=== PATIENT | male | born 2000 | race Hispanic/Latino ===

== ENCOUNTER 2020-05-12 09:45 | Emergency (ER) | payer OTHER ==
[~2020-05-12] VITALS: Ht 175.3 cm; Wt 78.4 kg
[2020-05-12] MEDS ORDERED: KETOROLAC TROMETHAMINE 10 MG TAB PO ONE (11:15)
[2020-05-12 11:36] LABS: BASO % 0.3 % (0.0-1.0); EOS # 0.2 10^3/uL (0.0-0.5); EOS % 2.2 % (0.0-3.0); HEMATOCRIT 46.1 % (42.0-52.0); HEMOGLOBIN 15.7 g/dl (13.5-17.5); LYMPH # 1.7 10^3/uL (1.5-5.0); LYMPH % 22.7 % (24.0-44.0); MEAN CORPUSCULAR HEMOGLOBIN 28.2 pg (27.0-33.0); MEAN CORPUSCULAR HGB CONC 34.1 g/dl (32.0-36.5); MEAN CORPUSCULAR VOLUME 82.9 fl (80.0-96.0); MONO # 0.7 10^3/uL (0.0-0.8); MONO % 8.5 % (0.0-5.0); NEUTROPHILS # 5.1 10^3/uL (1.5-8.5); PLATELET COUNT, AUTOMATED 209 10^3/uL (150-450); RED BLOOD COUNT 5.56 10^6/uL (4.30-6.10); WHITE BLOOD COUNT 7.7 10^3/uL (4.0-10.0)
[2020-05-12 12:05] LABS: ALBUMIN 4.8 GM/DL (3.2-5.2); ALT/SGPT 54 U/L (12-78); BILIRUBIN,DIRECT 0.3 MG/DL (0.0-0.2); BLOOD UREA NITROGEN 16 MG/DL (7-18); CALCIUM LEVEL 9.5 MG/DL (8.5-10.1); CARBON DIOXIDE LEVEL 34 MEQ/L (21-32); CHLORIDE LEVEL 106 MEQ/L (98-107); CREATININE FOR GFR 0.93 MG/DL (0.70-1.30); GLUCOSE, FASTING 80 MG/DL (70-100); LIPASE 108 U/L (73-393); POTASSIUM SERUM 4.2 MEQ/L (3.5-5.1); SODIUM LEVEL 140 MEQ/L (136-145); TOTAL PROTEIN 8.2 GM/DL (6.4-8.2)
[2020-05-12] MEDS ORDERED: NAPR-837 PO (12:42)
[2020-05-12 12:51] VITALS: BP 113/76
== END 2020-05-12 12:56 | disposition home or self-care (01) ==
LOC: M ED 09:45
DX: S39.011A Strain of muscle, fascia and tendon of abdomen, initial encounter (principal); X58.XXXA Exposure to other specified factors, initial encounter; Y92.9 Unspecified place or not applicable; Y93.9 Activity, unspecified; Y99.9 Unspecified external cause status

== ENCOUNTER 2021-07-06 07:54 | Day surgery (SDC) | payer OTHER ==
[~2021-07-06] VITALS: Ht 175.3 cm; Wt 73.2 kg
[~2021-07-06 07:54] MED LIST: NAPR-837 PO; NS 1,000 ML IV ONE
--- OUTSIDE RECORDS SUMMARY | 2021-07-06 07:58 | CCD | Continuity of Care Document ---
Author Author Jean Claude SNOW M.D Organization Unknown Address [address] [place] [id number] Phone [phone] Care Team Providers Care Product Designer Name Role Phone [facility]ile F[facility]ana [facility] Problems Active Problems Provider Date Gastroesophageal reflux disease Brant Snow M.D. Ons et: 05/17/2021 Hemorrhage of rectum and anus Brant Snow M.D. Onset : 12/07/2020 Social History Type Date Description Comments Sex Unknown ETOH Use Denies alcohol use Tobacco Use Start: Unknown Patient has never smoked Allergies and adverse reactions Description No Known Drug Allergies Medications Active Medications SIG Qnty Indications Ordering Provide r Date No Active Medications Unknown History Medications No Active Medications Brant hernandez M.D. 12/07/2020 - 12/07/2020 Suprep Bowel Prep Kit 17.5-3.13-1.6GM/177ML Solution use as directed 354ml Brant Snow M.D. 12/07/2020 - 05/16/2021 Immunizations Description No Information Available Vital Signs Date Vital Result Comment 05/17/2021 11:13am Height 69 inches 5'9" Weight 166.00 lb BP Systolic 130 mmHg BP Diastolic 79 mmHg Heart Rate 89 /min BMI (Body Mass Index) 24.5 kg/m2 Weight 75.298 kg Body Temperature 97.5 F 12/07/2020 1:02pm Height 69 inches 5'9" Weight 171.00 lb BP Systolic 129 mmHg BP Diastolic 71 mmHg Heart Rate 77 /min BMI (Body Mass Index) 25.2 kg/m2 Weight 77.566 kg Body Temperature 97.2 F Results Description No Information Available Procedures Date Code Description Status 12/07/2020 05538 Office/Outpatient New Low MDM 30 -44 Minutes Completed Medical Devices Description No Information Available Encounters Type Date Location Provider Dx Diagnosis Office Visit 12/07/2020 1:15p Main Office Brant Snow M.D. K 62.5 Hemorrhage of anus and rectum Assessments Date Code Description Provider 05/17/2021 K21.9 Gastroesophageal reflux disease Brant Snow M.D. 12/07/2020 K62.5 Hemorrhage of rectum and anus Ge pb Snow M.D. Plan of Treatment Future Appointment(s):* 07/06/2021 8:45 am - Brant Snow M.D. at Main Office 05/17/2021 - Brant Snow M.D.* K21.9 Gastroesophageal reflux disease* Comments:* 21 yo ADS who was referred for evaluation of rectal bleeding. Pt is s/p appendectomy October 25. No c/o abdominal pain, weight loss, change in bowel habits, or rectal bleeding. No family h/o colon cancer. No h/o chest pain, or sob. Pt never had the colonoscopy. He is here now for evaluation of heartburn. His symptoms are all improved. Plan:1. Egd + bx.2. informed consent. Functional Status Description No Information Available Mental Status Description No Information Available Referrals Refer to Reason for Referral Status Appt Date Brant Snow M.D. Created [address] [place] [address] [phone] Brant Snow M.D. Scheduled [address] [place] [address] [phone]
--- OUTSIDE RECORDS SUMMARY | 2021-07-06 07:58 | CCD | Continuity of Care Document ---
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 K 21.9 Gastro-esophageal reflux disease without esophagitis Office Visit 12/07/2020 1:15p Main Office Brant [...] Status Appt Date Brant Snow M.D. Created [address] [place] [id number] [phone] Brant Snow M.D. Scheduled [address] [place] [id number] [phone]
--- OUTSIDE RECORDS SUMMARY | 2021-07-06 07:59 | CCD ---
Author Author [facility] Organization [facility] Address Unknown Phone Unavailable Care Team Providers Care Towel Sorter Name Role Phone [facility] Unavailable Unavailable Glendy Snow MD Unavailable Unavailable Glendy Snow MD Unavailable Unavailable Glendy Snow MD Unavailable Unavailable Glendy Snow MD Unavailable Unavailable Glendy Snow MD Unavailable Unavailable Glendy Snow MD Unavailable Unavailable Glendy Snow MD Unavailable Unavailable Glendy Snow MD Unavailable Unavailable Glendy Snow MD Unavailable Unavailable Glendy Snow MD Unavailable Unavailable Glendy Snow MD Unavailable Unavailable Glendy Snow MD Unavailable Unavailable Glendy Snow MD Unavailable Unavailable Glendy Snow MD Unavailable Unavailable Glendy Snow MD Unavailable Unavailable Glendy Snow MD Unavailable Unavailable Glendy Snow MD Unavailable Unavailable Glendy Snow MD Unavailable Unavailable Glendy Snow MD Unavailable Unavailable Glendy Snow MD Unavailable Unavailable Glendy Snow MD Unavailable Unavailable Glendy Snow MD Unavailable Unavailable Glendy Snow MD Unavailable Unavailable Glendy Snow MD Unavailable Unavailable Glendy Snow MD Unavailable Unavailable Glendy Snow MD Unavailable Unavailable Glendy Snow MD Unavailable Unavailable Glendy Snow MD Unavailable Unavailable Glendy Snow MD Unavailable Unavailable Glendy Snow MD Unavailable Unavailable Glendy Snow MD Unavailable Unavailable Glendy Snow MD Unavailable Unavailable Glendy Snow MD Unavailable Unavailable Gwendolyn, S Brant VICENTE Unavailable Unavailable Gwendolyn, S Brant MD Unavailable Unavailable Gwendolyn, S Brant MD Unavailable Unavailable Gwendolyn, S Brant MD Unavailable Unavailable Gwendolyn, S Brant MD Unavailable Unavailable Gwendolyn, S Brant VICENTE Unavailable Unavailable Gwendolyn, S Brant VICENTE Unavailable Unavailable Gwendolyn, S Brant VICENTE Unavailable Unavailable Gwendolyn, S Brant MD Unavailable Unavailable Gwendolyn, S Brant MD Unavailable Unavailable Gwendolyn, S Brant VICENTE Unavailable Unavailable Gwendolyn, S Brant MD Unavailable Unavailable Gwendolyn, S Brant VICENTE Unavailable Unavailable Gwendolyn, S Brant VICENTE Unavailable Unavailable Gwendolyn, S Brant VICENTE Unavailable Unavailable Gwendolyn, S Brant MD Unavailable Unavailable Gwendolyn, S Brant MD Unavailable Unavailable Paresh Lanza MD Unavailable Unavailable Paresh Lanza MD Unavailable Unavailable Paresh Lanza MD Unavailable Unavailable Paresh Lanza MD Unavailable Unavailable Paresh Lanza MD Unavailable Unavailable Paresh Lanza MD Unavailable Unavailable UNKNOWN, [facility]IN[facility] WAYLON Unavailable Unavailable TURRIN, REHANA Unavailable Unavailable TURRIN, REHANA Unavailable Unavailable TURRIN, REHANA Unavailable Unavailable TURRIN, REHANA Unavailable Unavailable Shravan Araiza MD Unavailable Unavailable Shravan Araiza MD Unavailable Unavailable Shravan Araiza MD Unavailable Unavailable Shravan Araiza MD Unavailable Unavailable Shravan Araiza MD Unavailable Unavailable Shravan Araiza MD Unavailable Unavailable Shravan Araiza MD Unavailable Unavailable Shravan Araiza MD Unavailable Unavailable Shravan Araiza MD Unavailable Unavailable Shravan Araiza MD Unavailable Unavailable Shravan Araiza MD Unavailable Unavailable Shravan Araiza MD Unavailable Unavailable Shravan Araiza MD Unavailable Unavailable Shravan Araiza MD Unavailable Unavailable Shravan Araiza MD Unavailable Unavailable Shravan Araiza MD Unavailable Unavailable Shravan Araiza MD Unavailable Unavailable Shravan Araiza MD Unavailable Unavailable Shravan Araiza MD Unavailable Unavailable Shravan Araiza MD Unavailable Unavailable Shravan Araiza MD Unavailable Unavailable Shravan Araiza MD Unavailable Unavailable Shravan Araiza MD Unavailable Unavailable Shravan Araiza MD Unavailable Unavailable Shravan Araiza MD Unavailable Unavailable Shravan Araiza MD Unavailable Unavailable Shravan Araiza MD Unavailable Unavailable Shravan Araiza MD Unavailable Unavailable Shravan Araiza MD Unavailable Unavailable Shravan Araiza MD Unavailable Unavailable Shravan Araiza MD Unavailable Unavailable Shravan Araiza MD Unavailable Unavailable Shravan Araiza MD Unavailable Unavailable Shravan Araiza MD Unavailable Unavailable Jose G, F Tank MD Unavailable Unavailable Shravan Araiza MD Unavailable Unavailable Shravan Araiza MD Unavailable Unavailable Shravan Araiza MD Unavailable Unavailable Shravan Araiza MD Unavailable Unavailable Shravan Araiza MD Unavailable Unavailable Shravan Araiza MD Unavailable Unavailable Shravan Araiza MD Unavailable Unavailable Monik BOSCH MD Unavailable Unavailable Monik BOSCH MD Unavailable Unavailable Monik BOSCH MD Unavailable Unavailable Monik BOSCH MD Unavailable Unavailable Monik BSOCH MD Unavailable Unavailable Monik BOSCH MD Unavailable Unavailable Monik BOSCH MD Unavailable Unavailable Monik BOSCH MD Unavailable Unavailable Monik BOSCH MD Unavailable Unavailable Clemente Vallejo MD Unavailable Unavailable Clemente Vallejo MD Unavailable Unavailable Clemente Vallejo MD Unavailable Unavailable Clemente Vallejo MD Unavailable Unavailable Clemente Vallejo MD Unavailable Unavailable Clemente Vallejo MD Unavailable Unavailable Clemente Vallejo MD Unavailable Unavailable Clemente Vallejo MD Unavailable Unavailable Clemente Vallejo MD Unavailable Unavailable Clemente Vallejo MD Unavailable Unavailable Clemente Vallejo MD Unavailable Unavailable Clemente Vallejo MD Unavailable Unavailable Clemente Vallejo MD Unavailable Unavailable Clemente Vallejo MD Unavailable Unavailable Clemente Vallejo MD Unavailable Unavailable Clemente Vallejo MD Unavailable Unavailable Clemente Vallejo MD Unavailable Unavailable Clemente Vallejo MD Unavailable Unavailable Clemente Vallejo MD Unavailable Unavailable Clemente Vallejo MD Unavailable Unavailable Clemente Vallejo MD Unavailable Unavailable Clemente Vallejo MD Unavailable Unavailable Clemente Vallejo MD Unavailable Unavailable Clemente Vallejo MD Unavailable Unavailable Clemente Vallejo MD Unavailable Unavailable Clemente Vallejo MD Unavailable Unavailable Clemente Vallejo MD Unavailable Unavailable Clemente Vallejo MD Unavailable Unavailable Clemente Vallejo MD Unavailable Unavailable Clemente Vallejo MD Unavailable Unavailable Clemente Vallejo MD Unavailable Unavailable Clemente Vallejo MD Unavailable Unavailable Clemente Vallejo MD Unavailable Unavailable Clemente Vallejo MD Unavailable Unavailable Clemente Vallejo MD Unavailable Unavailable Clemente Vallejo MD Unavailable Unavailable Clemente Vallejo MD Unavailable Unavailable Clemente Vallejo MD Unavailable Unavailable Clemente Vallejo MD Unavailable Unavailable Clemente Vallejo MD Unavailable Unavailable Clemente Vallejo MD Unavailable Unavailable Clemente Vallejo MD Unavailable Unavailable Clemente Vallejo MD Unavailable Unavailable Clemente Vallejo MD Unavailable Unavailable Clemente Vallejo MD Unavailable Unavailable Clemente Vallejo MD Unavailable Unavailable Clemente Vallejo MD Unavailable Unavailable Clemente Vallejo MD Unavailable Unavailable Clemente Vallejo MD Unavailable Unavailable Clemente Vallejo MD Unavailable Unavailable Clemente Vallejo MD Unavailable Unavailable Clemente Vallejo MD Unavailable Unavailable Clemente Vallejo MD Unavailable Unavailable Clemente Vallejo MD Unavailable Unavailable Clemente Vallejo MD Unavailable Unavailable Clemente Vallejo MD Unavailable Unavailable Clemente Vallejo MD Unavailable Unavailable Clemente Vallejo MD Unavailable Unavailable Clemente Vallejo MD Unavailable Unavailable Clemente Vallejo MD Unavailable Unavailable Clemente Vallejo MD Unavailable Unavailable Clemente Vallejo MD Unavailable Unavailable Clemente Vallejo MD Unavailable Unavailable Clemente Vallejo MD Unavailable Unavailable Clemente Vallejo MD Unavailable Unavailable Clemente Vallejo MD Unavailable Unavailable Clemente Vallejo MD Unavailable Unavailable Clemente Vallejo MD Unavailable Unavailable Clemente Vallejo MD Unavailable Unavailable Clemente Vallejo MD Unavailable Unavailable Clemente Vallejo MD Unavailable Unavailable Clemente Vallejo MD Unavailable Unavailable Clemente Vallejo MD Unavailable Unavailable Clemente Vallejo MD Unavailable Unavailable Clemente Vallejo MD Unavailable Unavailable Clemente Vallejo MD Unavailable Unavailable Genevieve, O Samah MD Unavailable Unavailable Genevieve, O Samah MD Unavailable Unavailable Genevieve, O Samah MD Unavailable Unavailable CHANLIECCO, C DEBBY MD Unavailable Unavailable CHANLIECCO, C DEBBY MD Unavailable Unavailable CHANLIECCO, C DEBBY MD Unavailable Unavailable CHANLIECCO, C DEBBY MD Unavailable Unavailable CHANLIECCO, C DEBBY MD Unavailable Unavailable CHANLIECCO, C DEBBY MD Unavailable Unavailable CHANLIECCO, C DEBBY MD Unavailable Unavailable CHANLIECCO, C DEBBY MD Unavailable Unavailable CHANLIECCO, C DEBBY MD Unavailable Unavailable CHANLIECCO, C DEBBY MD Unavailable Unavailable CHANLIECCO, C DEBBY MD Unavailable Unavailable Re-disclosure Warning The records that you are about to access may contain information from federally-assisted alcohol or drug abuse programs. If such information is present, then the following federally mandated warning applies: This information has been disclosed to you from records protected by federal confidentiality rules (42 CFR part 2). The federal rules prohibit you from making any further disclosure of this information unless further disclosure is expressly permitted by the written consent of the person to whom it pertains or as otherwise permitted by 42 CFR part 2. A general authorization for the release of medical or other information is NOT sufficient for this purpose. The Federal rules restrict any use of the information to criminally investigate or prosecute any alcohol or drug abuse patient.The records that you are about to access may contain highly sensitive health information, the redisclosure of which is protected by Article 27-F of the [facility] Public Health law. If you continue you may have access to information: Regarding HIV / AIDS; Provided by facilities licensed or operated by the [facility] Office of Mental Health; or Provided by the [facility] Office for People With Developmental Disabilities. If such information is present, then the following [facility] mandated warning applies: This information has been disclosed to you from confidential records which are protected by state law. State law prohibits you from making any further disclosure of this information without the specific written consent of the person to whom it pertains, or as otherwise permitted by law. Any unauthorized further disclosure in violation of state law may result in a fine or half-way sentence or both. A general authorization for the release of medical or other information is NOT sufficient authorization for further disc losure. Allergies and Adverse Reactions Type Description Substance Reaction Status Data Source(s ) No Known Allergies No Known Allergies [facility] Encounters Encounter Providers Location Date Indications Data Source(s ) Outpatient Attender: Brant Snow MD Main Office 05/17/2021 11:00:00 AM EDT [facility] ([facility]) Emergency Attender: REHANA ARCINIEGAConsultant: WAYLON UNKNOW N 05/12/2021 01:39:00 AM EDT - 05/12/2021 03:11:00 AM EDT [facility] Patient discharged. Emergency Attender: Paresh Lanza MDConsultant: WAYLON UNKNOWN 05/06/2021 10:10:00 AM EDT - 05/06/2021 01:25:00 PM [facility]T [facility] Outpatient Attender: Hattie Vallejo MD Main office [facility] 12/30/2020 10:00:00 AM EDT [facility]) Outpatient Attender: Brant Snow MD Main Office 12/07/2020 01:15:00 PM EDT [facility] ([facility]) Emergency Attender: Paresh Lanza MD 12/03/2020 06:53:00 AM EDT - 12/03/2020 07:34:00 AM EDT [facility] Patient discharged. Outpatient Attender: Tank Araiza MD 2020 12:23:00 PM EDT - 11/18/2020 12:23:00 PM EDT [facility] Emergency Attender: DEBBY RAMOS MD 11/11/2020 01:32:00 PM EDT - 11/11/2020 03:24:00 PM EDT [facility] Patient discharged. Outpatient Attender: Tank Araiza MD 2020 01:17:00 PM EDT - 11/10/2020 01:17:00 PM EDT [facility] Emergency Attender: REHANA ARCINIEGA 2020 08:56:00 AM EST - 11/01/2020 11:23:00 AM [facility] Patient discharged. Outpatient Attender: Tank Araiza MDAtt chuck: REHANA ARCINIEGAReferrer: Tank Araiza MD 10/25/2020 11:18:00 AM EST - 10/26/2020 09:15:00 AM [facility] Patient discharged. Emergency Attender: DEBBY RAMOS MD 09/10/2020 02:11:00 PM [facility] 09/10/2020 02:49:00 PM [facility] Patient discharged. Outpatient Attender: [facility] 09/05/2020 12:1 5:00 AM [facility] Emergency Attender: NALDO BOSCH MD 09/04 11:39:00 PM [facility] 09/05/2020 03:37:00 AM [facility] Patient discharged. Immunizations Vaccine Date Status Description Data Source(s) COVID-19 VACCINE Keith 12/02/2020 12:00:00 AM EDT completed [employer] Vaccine Series Complete: YESThis Data wa s Submitted to [facility] Via [employer]. Medications Medication Brand Name Start Date Product Form Dose Route Admi nistrative Instructions Pharmacy Instructions Status Indications Reaction Description Data Source(s) No Active Medications 05/17/2021 12:00:00 AM EDT active [facility] ([facility]) Suprep Bowel Prep Kit Suprep Bowel Prep Kit 12/07/2020 12:00:00 AM EDT completed [facility]) No Active Medications 12/07/2020 12:00:00 AM EDT completed [facility] ([facility]) Docusate Sodium 100 MG Oral Capsule [Colace] Colace 12:00:00 AM EDT ORAL active [facility] ( [facility]) No Active Medications 11/10/2020 12:00:00 AM EDT completed [facility] ([facility]) Ibuprofen 800 MG Oral Tablet Ibuprofen 10/26/2020 12:00:00 AM EST ORAL completed [facility] ([facility]) Insurance Providers Payer name Policy type / Coverage type Policy ID Covered green party ID Covered green party's relationship to adair Policy Adair Plan Information [facility] [id number] SP [id number] [facility] - O/P [id number] 18 [id number] [facility] - PHYSICIAN [id number] 18 [id number] [facility] [place] [id number] 18 [id number] Problems, Conditions, and Diagnoses Code Display Name Description Problem Type Effective Dates Data Source(s) Y9289 Other specified places as the place of o ccurrence of the external cause Other specified places as the place of occurrence of the external cause Diagnosis 05/12/2021 01:39:[address] [facility] [id number] Overexertion from strenuous movement or load, initial encounter Overexertion from strenuous movement or load, initial encounter Diagnosis 05/12/2021 01:39:[address] [facility] [id number] Strain of muscle, fascia and tendon of l ower back, initial encounter Strain of muscle, fascia and tendon of lower back, initial encounter Diagnosis 05/12/2021 01:39:[address] [facility] M545 Low back pain Low back pain Diagnosis 05/12/2021 01:39:[address] [facility] Z8719 Personal history of other diseases of th e digestive system Personal history of other diseases of the digestive system Diagnosis 04/27 10:10:[address] [facility] R0602 Shortness of breath Shortness of breath Diagnosis 0 05/06/2021 10:10:[address] [facility] K2100 Gastro-esophageal reflux disease with es ophagitis, without bleeding Gastro-esophageal reflux disease with esophagitis, without bleeding Diagnosis 05/06/2021 10:10:[address] [facility] R1013 Epigastric pain Epigastric pain Diagnosis 05/06/2021 10:1 0:[address] [facility] R5383 Other fatigue Other fatigue Diagnosis 12/03/2020 06:53:[address] [facility] R05 Cough Cough Diagnosis 12/03/2020 06:53:00 AM ED [facility] M7910 Myalgia, unspecified site Myalgia, unspecified site Di agnosis 12/03/2020 06:53:[address] [facility] R519 Headache, unspecified Headache, unspecified Diagnosis 12/03/2020 06:53:[address] [facility] K600 Acute anal fissure Acute anal fissure Diagnosis 12:23:[address] [facility] R1032 Left lower quadrant pain Left lower quadrant pain Diag nosis 11/11/2020 01:32:00 PM EDT [facility] K625 Hemorrhage of anus and rectum Hemorrhage of anus and r ectum Diagnosis 11/11/2020 01:32:00 PM EDT [facility] Z4889 Encounter for other specified surgical a ftercare Encounter for other specified surgical aftercare Diagnosis 11/10/2020 01:17:00 PM EDT [facility] [id number] Other specified postprocedural states Ot her specified postprocedural states Diagnosis 11/01/2020 08:56:00 AM [facility] 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 Acquired absenc e of other organs Diagnosis 11/01/2020 08:56:00 AM [facility] K5900 Constipation, unspecified Constipation, unspecified Di agnosis 11/01/2020 08:56:00 AM [facility] K3530 Acute appendicitis with loca lized peritonitis, without perforation or gangrene Acute appendicitis with localized perito nitis, without perforation or gangrene Diagnosis 10/25/2020 11:18:00 AM [facility] 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, unspecified Right temporomandibular joint disorder, unspecified Diagnosis 09/10/19 02:11:00 PM [facility] K0889 Other specified disorders of teeth and s upporting structures Other specified disorders of teeth and supporting structures Diagnosis 09/10/2020 02:11:00 PM [facility] K26154 Invalid ICD10 Description Invalid ICD10 Description Di agnosis 09/04/2020 11:39:00 PM [facility] R509 Fever, unspecified Fever, unspecified Diagnosis 11:39:00 PM [facility] K649 Unspecified hemorrhoids Unspecified hemorrhoids Diagno sis 09/04/2020 11:39:00 PM [facility] [id number] Gastroesophageal reflux disease Gastroesophageal reflux disease Problem 05/17/2021 12:00:00 AM EDT [facility] [id number] Atypical facial pain Atypical facial pain Problem 12/30/2020 12:00:00 AM EDT [facility] ([facility] ) 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 Problem 12/30/2020 12:00:00 AM EDT [facility] ([facility] ) [id number] Hemorrhage of rectum and anus Hemorrhage of rectum and anus Problem 12/07/2020 12:00:00 AM EDT [facility] ([facility]) K37 Appendicitis Appendicitis Problem 11/10/2020 12:00:00 A M EDT [facility] ([facility]) Surgeries/Procedures Procedure Description Date Indications Data Source(s) OFFICE OUTPATIENT VISIT 15 MINUTES 05/17/2021 12:00:00 AM EDT [facility] ([facility]) MRI ORBIT FACE &/NECK W/O CONTRAST 01/29/2021 12:00:00 AM EDT [facility] ([facility] ) MRI ORBIT FACE &/NECK W/O CONTRAST 01/29/2021 12:00:00 AM EDT [facility] ([facility] ) OFFICE OUTPATIENT NEW 30 MINUTES 12/07/2020 12:00:00 A M EDT [facility] ([facility]) Results ID Date Data Source [id number] 07/01/2021 11:10:00 AM EDT [facility] Name Value Range Interpretation Code Description Data Maria Eugenia rce(s) Supporting Document(s) SARS coronavirus 2 RNA Not Detected [facility] This lab was ordered by [facility] and reported by [facility]. ID Date Data Source [id number] 05/20/2021 12:00:00 AM EDT [facility] Name Value Range Interpretation Code Description Data Maria Eugenia rce(s) Supporting Document(s) [facility] This lab was ordered by [facility] and reported by [facility]. ID Date Data Source [id number] 05/12/2021 01:32:00 PM EDT [facility] [address] [place] [address] PHONE: [phone] FAX: [phone] Name .................. : JOCELYNN Ruggiero Acct Number.................. : [id number] ROOM. ................. : TR-07 MR Number ................... : [id number] Stay type ............. : E/R Discharge Date......... ... : 05/12/21 Admit Date ......... : 05/12/21 Admit Phys .................... : DEMIAN KAVITHA Date of ....... : 2000 Family Phys ................... : UNKNOWN KURT Phone .................. : [phone] Age ................................ : 21 Film# .................. .:[id number] Sex ................................. : M Unsigned transcriptions are preliminary reports and do not represent a medical or legal document SPINE LS AP & LAT [id number] COMPLETE:05/12/21 02:56 DLA 51451 Reason(s): Lower Back Pain LUMBOSACRAL SPINE 2 VIEWS. INDICATION: Low back pain COMPARISON: None. FINDINGS: The vertebral bodies are normal height. No fracture or destru ctive bone lesion. No spondylolysis or spondylolisthesis. The disk spaces are well preserved. No significant degenerative changes. There is moderately increased stool throughout the colon. Correlate clinically for constipation. IMPRESSION: Lumbar spine is unremarkable. Electronically Reviewed and Signed By Joseph Tamayo MD , 05/12/21 13:32, JWGlendy Transcribe Initials: EARL, Transcribe Date: 05/12/21 08:48, Dictation Date: Copy for: EMERGENCY DEPT via [facility] Copy for: 710 MED REC DISCHARGED Page 1 of 1 Name Value Range Interpretation Code Description Data Maria Eugenia rce(s) Supporting Document(s) ID Date Data Source [id number] 05/12/2021 01:39:00 AM EDT [facility] 1 OrderSheet [facility] Emergency Department [address] [place] [address] Phone #: ext- [phone] 05/12/2021 01:37 Patient: DIANA CABEZAS Sex: M : 2000 Age: 21yWEIGHT:78.9 kg (S) HEIGHT:69 inches (S) BMI:25.7ALLERGIES: NKDACHIEF COMPLAINT: back pain, back injuryDIAGNOSIS: Lumbar sprainLAB ORDERSOrder Description Priority Entered Acknowledged InitialedDIAGNOSTIC STUDY ORDERSOrder Description Priority Entered Acknowledged InitialedSpine Lumbar AP STAT 02:46 05/12/2021 02:46 Jacob,And LAT Rehana Arciniega RBipinNBipin(Oxygen?(No)) M.D.; Reason for Study: Lower Back PainMEDICATION/IV/DRIP/FLUID ORDERSOrder Description Priority Entered Acknowledged InitialedToradol IM 30 mg 02:46 05/12/2021 02:58 JacobDemian Riccardo Stephanie R.N. M.D.;Tylenol 1 g PO X1 02:46 05/12/2021 02:58 Jacob,dose: 1000 mg Rehana Arciniega R.N.(NOW x1) M.D.;Lidocaine Patch 02:46 05/12/2021 02:58 Jacob,Topical (Patch 5 %) Rehana Arciniega.N.1 Patch (On for 12 M.D.;hours, off for 12hours.)GENERAL ORDERSOrder Description Priority Entered Acknowledged Initialed[Electronically signed by Yu Juares R.N. (03:11 05/12/2021)][Electronically signed by Rehana Arciniega M.D. (03:23 05/12/2021)][Electronically locked by Yu Juares R.N. (03:11 05/12/2021)] Name Value Range Interpretation Code Description Data Maria Eugenia rce(s) Supporting Document(s) ID Date Data Source [id number] 05/12/2021 01:39:00 AM EDT [facility] 1 Medication Reconciliation Report [facility] Emergency Department [address] [place] [address] Phone #: ext- [phone] 05/12/2021 01:37 Patient: DIANA CABEZAS Sex: M : 2000 Age: 21yWeight: 78.9 kgHeight/Length: 69 in.BMI: 25.7ALLERGIES: NKDAThe patient's Home Medications are listed below:CONTINUE TAKING THE FOLLOWING MEDICATIONS: Cyclobenzaprine HCl OralThe source(s) of the original Home Medication information:Not obtained.The following Medications were given to the patient in the Emergency Department:Toradol [IM] IM 30 mg, administered: 02:58 05/12/2021Tylenol [PO] PO 1000 mg, administered: 02:58 05/12/2021idocaine Patch Transdermal 1 patch, administered: 02:58 05/12/2021The following Medications were prescribed to the patient:ibuprofen 600 mg tablet Take 1 tablet four times a day as needed for pain for 7 days -- Dispense 28tablet. Refills: 0. Substitution permitted.Pharmacy - [facility] [id number] ; [place] [address]. .Lidoderm 5 % topical patch Apply 1 patch once a day for 7 days -- Take off after 12 hrs. Dispense 7patch. Refills: 0. Substitution permitted.Pharmacy - [facility] [id number] ; [place] [address]. . -- Rehana Arciniega M.D. Name Value Range Interpretation Code Description Data Maria Eugenia e(s) Supporting Document(s) ID Date Data Source [id number] 05/12/2021 01:39:00 AM EDT [facility] 1 Medication Administration Record [facility] Emergency Department [address] [place] [address] Phone #: ext- [phone] 05/12/2021 01:37 Patient: DIANA CABEZAS Sex: M : 2000 Age: 21yWeight: 78.9 kgHeight/Length: 69 inBMI: 25.7ALLERGIES: NKDA Date/Time Medication Administered Medication OrderedGiven TORADOL [IM] (KETOROLAC Toradol IM 30 mg02:58 05/12/2021 TROMETHAMINE)Lydia James, R.NBipin Dose: 30 mg IMGiven TYLENOL [PO] (APAP) Tylenol 1 g PO X1 dose: 1000 mg02:58 05/12/2021 Dose: 1000 mg Tablets PO (NOW x1)Lydia James R.NBipinGiven LIDOCAINE PATCH Lidocaine Patch Topical (Patch 502:58 05/12/2021 Dose: 1 patch Transdermal %) 1 Patch (On for 12 hours, offLofLydia oliveira R.NBipin for 12 hours.) Name Value Range Interpretation Code Description Data Maria Eugenia rce(s) Supporting Document(s) ID Date Data Source [id number] 05/12/2021 01:39:00 AM EDT [facility] 1 General Instructions [facility] Emergency Department [address] [place] [address] Phone #: ext- [phone] 05/12/2021 01:37 Patient: DIANA CABEZAS Sex: M : 2000 Age: 21yAcute lumbar strain.INSTRUCTIONSApply ice for 30 minutes four times a day for two days followed by moist heat 30 minutes four times a dayfor five days. Don't apply ice directly to skin, don't use while asleep and don't use high setting on heatingpad. Limit lifting until well. No strenuous activity until better. Return to work when released by doctor.(FOLLOW UP WITH ORTHOPEDICS ON [place] FOR MRI AND FURTHER TREATMENT NEEDED,LIKE PHYSICAL THERAPY).Warnings: GENERAL WARNINGS: Return or contact your physician immediately if your conditionworsens or changes unexpectedly, if not improving as expected, or if other problems arise.SPECIFICALLY, return if you develop weakness of the foot or leg, numbness, tingling, pain or incontinenceof feces (loss of bowel control) or urine (loss of bladder control).Your Current Medications: Your current home medications have been reviewed.CONTINUE TAKING THE FOLLOWING MEDICATIONS:Cyclobenzaprine HCl Oral.Prescription Medications:ibuprofen 600 mg tablet Take 1 tablet four times a day as needed for pain for 7 days -- Dispense 28tablet. Refills: 0. Substitution permitted.[facility] [phone] ; [place] [address]. .Lidoderm 5 % topical patch Apply 1 patch once a day for 7 days -- Take off after 12 hrs. Dispense 7patch. Refills: 0. Substitution permitted.[email or web address] [phone] ; [place] [address]. .Follow-up:Return to the emergency department as needed. Follow up with an orthopedic surgeon in three dayseven if well. Call for an appointment. Reason for referral: evaluation and treatment. Summary of careprovided to patient via paper.Understanding of the discharge instructions verbalized by patient. Expected course of injury, dischargeinstructions, activity level, diet, prescriptions x2, follow-up appointment and risks and benefits of treatmentreviewed with patient and understanding verbalized. Agrees to plan of care. 2 General Instructions [facility] Emergency Department [address] [place] [address] Phone #: ext- [phone] 05/12/2021 01:37 Patient: DIANA CABEZAS Sex: M : 2000 Age: 21y ADDITIONAL INFORMATIONBack Pain (Acute or Chronic)Back pain is one of the most common problems. The good news is that most people feel better in 1 to2 weeks, and most of the rest in 1 to 2 months. Most people can remain active.People who have pain describe it differently--not everyone is the same. The pain can be sharp, stabbing, shooting, aching, cramping or burning. Movement, standing, bending, lifting, sitting, or walking may worsen pain. It can be limited to one spot or area, or it can be more generalized. It can spread upwards, to the front, or go down your arms or legs (sciatica). 3 General Instructions [facility] Emergency Department [address] [place] [address] Phone #: ext- [phone] 05/12/2021 01:37 Patient: DIANA CABEZAS Sex: M : 2000 Age: 21y It can cause muscle spasm.Most of the time, mechanical problems with the muscles or spine cause the pain. Mechanicalproblems are usually caused by an injury to the muscles or ligaments. Illness can cause back pain,but it's usually not caused by a serious illness. Mechanical problems include: Physical activity such as sports, exercise, work, or normal activity Overexertion, lifting, pushing, pulling incorrectly or too aggressively Sudden twisting, bending, or stretching from an accident, or accidental movement Poor posture Stretching or moving wrong, without noticing pain at the time Poor coordination, lack of regular exercise (check with your doctor about this) Spinal disc disease or arthritis StressPain can also be related to , or illness like appendicitis, bladder or kidney infections, pelvicinfections, and many other things.Acute back pain usually gets better in 1 to 2 weeks. Back pain related to disk disease, arthritis in thespinal joints, or narrowing of the spinal canal (spinal stenosis) can become chronic and last formonths or years.Unless you had a physical injury such as a car accident or fall, X-rays are usually not needed for thefirst assessment of back pain. If pain continues and does not respond to medical treatment, you mayneed X-rays and other tests.Home careTry this home care advice: When in bed, try to find a position of comfort. A firm mattress is best. Try lying flat on your back with pillows under your knees. You can also try lying on your side with your knees bent up toward your chest and a pillow between your knees. At first, don't try to stretch out the sore spots. If there is a strain, it's not like the good soreness you get after exercising without an injury. In this case, stretching may make it worse. Don't sit for long periods, as in a long car ride or during other travel. This puts more stress on the lower back than standing or walking. During the first 24 to 72 hours after an acute injury or flare up of chronic back pain, apply an 4 General Instructions [facility] Emergency Department [address] [place] [address] Phone #: ext- [phone] 05/12/2021 01:37 Patient: DIANA CABEZAS Sex: M : 2000 Age: 21y ice pack to the painful area for 20 minutes and then remove it for 20 minutes. Do this over a period of 60 to 90 minutes or several times a day. This will reduce swelling and pain. Wrap the ice pack in a thin towel or plastic to protect your skin. You can start with ice, then switch to heat. Heat (hot shower, hot bath, or heating pad) reduces pain and works well for muscle spasms. Heat can be applied to the painful area for 20 minutes then remove it for 20 minutes. Do this over a period of 60 to 90 minutes or several times a day. Don't sleep on a heating pad. It can lead to skin bejarano or tissue damage. You can alternate ice and heat therapy. Talk with your doctor about the best treatment for your back pain. Therapeutic massage can help relax the back muscles without stretching them. Be aware of safe lifting methods and don't lift anything without stretching first.MedicinesTalk to your doctor before using medicine, especially if you have other medical problems or are takingother medicines. You may use [id number] medicine as directed on the bottle to control pain, unless another pain medicine was prescribed. If you have chronic conditions like diabetes, liver or kidney disease, stomach ulcers, or gastrointestinal bleeding, or are taking blood thinners, talk to your doctor before taking any medicine. Be careful if you are given a prescription medicines, narcotics, or medicine for muscle spasms. They can cause drowsiness, affect your coordination, reflexes, and judgement. Don't drive or operate heavy machinery.Follow-up careFollow up with your healthcare provider, or as advised.If X-rays were taken, you will be told of any new findings that may affect your careCall 911Call 911 if any of the following occur: Trouble breathing Confusion Very drowsy or trouble awakening Fainting or loss of consciousness 5 General Instructions [facility] Emergency Department [address] [place] [address] Phone #: ext- [phone] 05/12/2021 01:37 Patient: DIANA CABEZAS Sex: M : 2000 Age: 21y Rapid or very slow heart rate Loss of bowel or bladder controlWhen to seek medical adviceCall your healthcare provider right away if any of these occur: Pain becomes worse or spreads to your legs Weakness or numbness in one or both legs Numbness in the groin or genital area [employer]. [address] [place] [address]. All rights reserved. This information is not intended as asubstitute for professional medical care. Always follow your healthcare professional's instructions. You have been given the following additional information: Back Pain (Acute or Chronic) Limit lifting until well. No strenuous activity until better. Return to work when released by doctor.(Electronically signed by Rehana Arciniega M.D. 05/12/2021 03:23) Name Value Range Interpretation Code Description Data Maria Eugenia rce(s) Supporting Document(s) ID Date Data Source [id number] 05/12/2021 01:39:00 AM EDT [facility] 1 Clinical Report - Nurses [facility] Emergency Department [address] [place] [address] Phone #: [phone]- [phone] 05/12/2021 01:37 Patient: DIANA CABEZAS Sex: M : 2000 Age: 21yTRIAGEArrived by private vehicle. Historian: patient. ( PT C/O NECK PAIN NO INJURY 04/05 REPORTS SEENYESTERDAY AT SICK CALL FOR [facility]ETH[facility]).Acuity: LEVEL 4.Chief Complaint: BACK PAIN.Onset. (1 weeks). He has had trouble walking. No history of recent trauma. ( PAIN WHILE WALKING).No numbness, weakness, tingling, fever or extremity pain. --02:13 05/12/21 Lydia James R.N.Correction --02:43 05/12/21 Lydia James R.N.02:08 05/12/21. BP: 137/86. MAP: 103. HR: 95. RR: 16. O2 saturation: 100%. Temp: 98.9 F. Pain levelnow: 04/05. --02:13 05/12/21 Lydia James R.N.( Arrived by private vehicle. Historian: patient. ( PT C/O LOW BACK PAIN NO INJURY 04/05 REPORTSSEEN YESTERDAY AT [facility] FOR [facility]).Acuity: LEVEL 4.Chief Complaint: BACK PAIN.Onset. (1 weeks). He has had trouble walking. No history of recent trauma. ( PAIN WHILE WALKING).No numbness, weakness, tingling, fever or extremity pain.2:13 Lydia James R.N.).Triage time: 02:15 05/12/2021. --02:44 05/12/21 Lydia James R.N.Acuity: LEVEL 4. --03:11 05/12/21 Yu Juares R.N.Weight: 78.9 kg stated. Height/Length: 69 inches Per Patient. BMI: 25.7. --02:08 05/12/21 Lydia James R.N.MedicationsCyclobenzaprine HCl Oral. --02:10 05/12/21 Lydia James R.N.AllergiesNKDA. --02:09 05/12/21 Lydia James R.N.PROBLEMS:Constipation.Dental Pain.Febrile Illness.Abdominal Pain. 2 Clinical Report - Nurses [facility] Emergency Department [address] [place] [address] Phone #: ext- [phone] 05/12/2021 01:37 Patient: DIANA CABEZAS Sex: M : 2000 Age: 21y Allergic Rhinitis. Appendicitis. Rectal Bleed. Gastroesophageal Reflux Disease. TMJ Syndrome. Hemorrhoids. Myalgias. --02:10 05/12/21 Lydia James R.N. ADDITIONAL SURGERIES: Appendectomy. Tooth extraction. [place] Teeth. --02:10 05/12/21 Lydia James R.N. History SOCIAL HX: Never smoker. No alcohol use or drug use. He was offered HIV testing but declined and hepatitis C testing but declined. He has not traveled outside the [place] Infectious disease exposure: No infectious disease exposure. The patient was not exposed to Coronavirus. SELF HARM ASSESSMENT: Self harm assessment was performed. The patient answered "no" to the question(s) "Have you recently felt down, depressed, or hopeless?" and "Do you have thoughts of harming or killing yourself?". ABUSE ASSESSMENT: No report of abuse. NUTRITIONAL RISK ASSESSMENT: The nutritional risk assessment revealed no deficiencies. FUNCTIONAL ASSESSMENT: Functional assessment: no impairments noted. LEARNING NEEDS ASSESSMENT: The learning needs assessment revealed no barriers. FALL RISK ASSESSMENT: Fall risk assessment completed. No risk factors identified. SKIN INTEGRITY ASSESSMENT: Skin integrity risk assessment completed. No skin integrity risk identified. --02:13 05/12/21 Lydia James R.N.PHYSICAL ASSESSMENTGENERAL / NEURO / PSYCH: Alert. Oriented X 4. Appears in no acute distress.RESPIRATORY: Respirations not labored. Chest nontender. Breath sounds within normal limits.CVS: Normal heart rate and rhythm. Capillary refill less than 2 seconds.GI / : Abdomen soft and nontender. Bowel sounds within normal limits.E XTREMITIES: Sensation intact in extremities. ROM of extremities within normal limits. --02:14 05/12/21Lydia James R.N. Ambulatory to room. --02:14 05/12/21 Lydia James R.N. 3 Clinical Report - Nurses [facility] Emergency Department [address] [place] [address] Phone #: ext- [phone] 05/12/2021 01:37 Patient: DIANA CABEZAS Sex: M : 2000 Age: 21yNURSING PROGRESS NOTESThe plan of care for this patient has been created. Monitoring of patient in place. Patient gowned.Reassurance given. Two patient identifiers checked. Call light placed in reach. Side rails up x 1. Bedplaced in lowest position. Brakes of bed on. Patient ready for evaluation- ED physician notified. --02: Lydia James R.N. 02:58 05/12/2021 Toradol (Ketorolac Tromethamine) IM 30 mg given. Given in the left gluteus miri. Allergies verified and confirmed 5 rights. Information reviewed with patient including reason for taking this medication, signs of allergic reaction and precautions. Verbalizes understanding. --02:58 05/12/21 Lydia James R.N. 02:58 05/12/2021 Tylenol (APAP) PO Tablets 1000 mg given. Allergies verified and confirmed 5 rights. Information reviewed with patient including reason for taking this medication, signs of allergic reaction and precautions. Verbalizes understanding. --02:58 05/12/21 Lydia James R.N. 02:58 05/12/2021 Lidocaine Patch Transdermal 1 patch applied. Allergies verified and confirmed 5 rights. Information reviewed with patient including reason for taking this medication, signs of allergic reaction and precautions. Verbalizes understanding. (lower back). --02:58 05/12/21 Lydia James R.N.DISPOSITION / DISCHARGE Condition at departure: stable. No learning barriers present. Discharge instructions provided and reviewed with the patient. Reviewed warnings. Reviewed medication(s). Treatments reviewed. Reviewed referrals. Work note given. Patient verbalized understanding. Written instructions provided in [place]. The patient was discharged by the physician. He was discharged home. He left ambulatory and via private vehicle. Patient driving. --03:10 05/12/21 Yu Juares R.N. 03:09 05/12/21. BP: 136/85. MAP: 102. HR: 89. RR: 17. O2 saturation: 100%. Temp: 98.3 F. Pain level now: 02/03. --03:10 05/12/21 Yu Juares R.N.Locked/Released at 05/12/2021 03:11 by Yu Juares R.N. Name Value Range Interpretation Code Description Data Maria Eugenia rce(s) Supporting Document(s) ID Date Data Source [id number] 05/12/2021 01:39:00 AM EDT [facility] 1 Clinical Report - Physicians/Mid Levels [facility] Emergency Department [address] [place] [address] Phone #: ext- [phone] 05/12/2021 01:37 Patient: DIANA CABEZAS Sex: M : 2000 Age: 21y Time Seen: 02:40 05/12/2021; initial patient contact. Arrived- By private vehicle. Historian- patient. Disposition decision: 03:02 05/12/2021.HISTORY OF PRESENT ILLNESS Chief Complaint: BACK INJURY and BACK PAIN. Onset- 2 days ago and it is still present. It is described as being severe and in the area of the lower lumbar spine and right lower lumbar spine. The quality is noted to be dull and "pain". No radiation. Modifying factors- worsened by walking, rotation of the body to the right or left, bending over or lifting. Relieved by remaining still. Not relieved by anything. No bladder dysfunction, bowel dysfunction, sensory loss or motor loss. Patient notes an injury. Mechanism of injury- he was lifting and turning (doing deadlifts then running). Occurred at work. No injury to the head or neck. Similar symptoms previously. Patient has had similar symptoms occasionally. Worse from previously. Recent medical care: The patient was seen recently by a health care provider. ( at sick call yesterday, given flexeril).REVIEW OF SYSTEMSNo fever, chills, eye irritation, difficulty with urination or urinary frequency. No hematuria, skin rash,headache, depression or sore throat. No cough, difficulty breathing, chest pain, abdominal pain ornausea. No vomiting, diarrhea, black stools or bloody stools. All other systems reviewed and arenegative.PAST HISTORYSee nurses notes. Problems: Back Pain. Constipation. Allergic Rhinitis. Gastroesophageal Reflux Disease. TMJ Syndrome. Hemorrhoids. Additional Surgeries: Appendectomy. Tooth extraction. [place] Teeth. Medications: Cyclobenzaprine HCl Oral. 2 Clinical Report - Physicians/Mid Levels [facility] Emergency Department [address] [place] [address] Phone #: ext- [phone] 05/12/2021 01:37 Patient: DIANA CABEZAS Sex: M : 2000 Age: 21y Allergies: NKDA.SOCIAL HISTORYNever smoker. No alcohol use or drug use. 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 MAP: 103. HR: 95. RR: 16. O2 saturation: 100%. Temp: 98.9F. Pain level now: 8/10. Have been reviewed. Oxygen saturation normal.Appearance: Alert. No acute distress. Anxious. Appears to be in pain. Patient in mild distress.Distress appears due to pain.HEENT: Normal external inspection.Eyes: Pupils equal, round and reactive to light.ENT: Pharynx normal.Neck: Normal inspection. Neck nontender. Painless ROM.CVS: Heart sounds normal. Pulses normal.Respiratory: No respiratory distress. Painless inspiration. Breath sounds normal.Abdomen: No visible injury. Soft and nontender. Bowel sounds normal. No organomegaly. No mass.Femoral pulses equal.Back: Normal inspection. Moderate muscle spasm of the right and left posterior back (rt>lt). Severe softtissue tenderness in the right lower and left lower lumbar area (rt>lt). Moderately limited ROM in the back-in the lumbar spine: decreased flexion, extension, right lateral bending, left lateral bending and rotation tothe right and left. No vertebral point tenderness or CVA tenderness.Skin: Skin warm and dry. Normal skin color. No rash. Normal skin turgor.Extremities: Extremities exhibit normal ROM. Extremities nontender.Neuro: Oriented X 3. Mood/affect normal. No motor deficit. No sensory deficit. Straight leg raising:negative on the right and negative on the left. Reflexes normal.LABS, X-RAYS, AND EKGLS-Spine X-rays: No fracture. No bony lesion. Views: AP and lateral. Technique: good. The X-rayswere interpreted contemporaneously by me. Interpretation time: 03:05/12/2021.PROGRESS AND PROCEDURESCourse of Care: 03:05/12/21. LS spine x-rays nml; pt has acute lumbar strain, feeling better w meds inER, will d/c home w instructions, [place] and further Tx like PT; ptunderstands and agrees 03:11 05/12/21. pt much improved post-treatment, walking out of ER. Patient counseled in person regarding the patient's stable condition, test results, diagnosis and need for 3 Clinical Report - Physicians/Mid Levels [facility] Emergency Department [address] [place] [address] Phone #: ext- [phone] 05/12/2021 01:37 Patient: DIANA CABEZAS Sex: M : 2000 Age: 21y follow-up. Patient agrees with plan of care. Disposition: Condition: good and stable. Discharge decision based on the following: patient's condition is stable; patient's condition is improved; patient is ambulatory; patient is active; patient drinking fluids; patient eating; patient's pain is controlled; patient's exam is improved; no abnormal test results; improving condition on multiple repeat evaluations; social support is good; transportation is available; follow-up is available; clinical impression is consistent with outpatient treatment.CLINICAL IMPRESSION Acute lumbar strain.INSTRUCTIONS Apply ice for 30 minutes four times a day for two days followed by moist heat 30 minutes four times a day for five days. Don't apply ice directly to skin, don't use while asleep and don't use high setting on heating pad. Limit lifting until well. No strenuous activity until better. Return to work when released by doctor. (FOLLOW UP WITH ORTHOPEDICS [place] FOR MRI AND FURTHER TREATMENT NEEDED, LIKE PHYSICAL THERAPY). Warnings: GENERAL WARNINGS: Return or contact your physician immediately if your condition worsens or changes unexpectedly, if not improving as expected, or if other problems arise. SPECIFICALLY, return if you develop weakness of the foot or leg, numbness, tingling, pain or incontinence of feces (loss of bowel control) or urine (loss of bladder control). Your Current Medications: Your current home medications have been reviewed. CONTINUE TAKING THE FOLLOWING MEDICATIONS: Cyclobenzaprine HCl Oral. Prescription Medications: ibuprofen 600 mg tablet Take 1 tablet four times a day as needed for pain for 7 days -- Dispense 28 tablet. Refills: 0. Substitution permitted. [facility] [employer] [id number] ; [place] [address]. . Lidoderm 5 % topical patch Apply 1 patch once a day for 7 days -- Take off after 12 hrs. Dispense 7 patch. Refills: 0. Substitution permitted. [facility] [employer] [employer] [id number] ; [place] [address]. . Follow-up: 4 Clinical Report - Physicians/Mid Levels [facility] Emergency Department [address] [place] [address] Phone #: ext- [phone] 05/12/2021 01:37 Patient: DIANA CABEZAS Sex: M : 2000 Age: 21y Return to the emergency department as needed. Follow up with an orthopedic surgeon in three days even if well. Call for an appointment. Reason for referral: evaluation and treatment. Summary of care provided to patient via paper. Understanding of the discharge instructions verbalized by patient. Expected course of injury, discharge instructions, activity level, diet, prescriptions x2, follow-up appointment and risks and benefits of treatment reviewed with patient and understanding verbalized. Agrees to plan of care.(Electronically signed by Rehana Arciniega M.D. 05/12/2021 03:23) Name Value Range Interpretation Code Description Data Maria Eugenia rce(s) Supporting Document(s) ID Date Data Source [id number] 05/08/2021 12:12:00 [place] [address] PHONE: [phone] FAX: [phone] Name .................. : JOCELYNN Ruggiero Acct Number.................. : [id number] ROOM. ................. : VT-01 Number ................... : [id number] Stay type ............. : E/R Discharge Date......... ... : Admit Date ......... : 05/06/21 Admit Phys .................... : BERNICE Hutchinson Date of ....... : 2000 Family Phys ................... : UNKNOWN KURT Phone . ................. : [phone] Age ................................ : 21 Film# .................. .:[id number] Sex ................................. : M Unsigned transcriptions are preliminary reports and do not represent a medical or legal document CHEST 2 VIEWS [id number] COMPLETE:05/06/21 10:46 Reason(s): Shortness of Breath FRONTAL AND LATERAL CHEST TWO VIEWS INDICATION: Shortness of breath COMPARISON: None FINDINGS: Mediastinal and hilar structures are normal. Cardiac silhouette is unremarkable. Lungs are clear. No pulmonary edema. No pleural effusions or pneumothorax. IMPRESSION: Normal exam. Electronically Reviewed and Signed By Rai Tello MD , 05/08/21 12:12, SCB Transcribe Initials: SSR, Transcribe Date: 05/06/21 13:12, Dictation Date: Copy for: [facility] via fax Copy for: EMERGENCY DEPT via modem Copy for: 710 MED REC DISCHARGED Page 1 of 1 Name Value Range Interpretation Code Description Data Maria Eugenia rce(s) Supporting Document(s) ID Date Data Source [id number] 05/08/2021 12:11:00 [place] [address] PHONE: [phone] FAX: [phone] Name .................. : JOCELYNN Ruggiero Acct Number.................. : [id number] ROOM. ................. : [place] MR Number ................... : [id number] Stay type ............. : E/R Discharge Date......... ... : Admit Date ......... : 05/06/21 Admit Phys .................... : BERNICE Hutchinson Date of ....... : 2000 Family Phys ................... : UNKNOWN KURT Phone .................. : [phone] Age ................................ : 21 Film# .................. .:[id number] Sex ................................. : M Unsigned transcriptions are preliminary reports and do not represent a medical or legal document CT ABD & PELVIS W/ IV ONLY 17007 COMPLETE:05/06/21 11:52 [facility] [address]199 Reason(s): Abdominal Pain CT ABDOMEN AND PELVIS WITH IV CONTRAST INDICATION: Abdominal pain COMPARISON: 11/11/20 IV CONTRAST: None One or more of the following dose reduction techniques were utilized in effectively lowering the radiation dose for this examination: Automated Exposure Control, Adjustment of the mA and/or kV according to patient size, or Iterative reconstruction. FINDINGS: LUNG BASES: No pulmonary nodules or masses. No pleural effusions. LIVER/BILIARY: Normal liver and gallbladder. SPLEEN: Normal. PANCREAS: Normal. ADRENALS: Normal bilaterally. KIDNEYS/: Normal kidneys without hydronephrosis. Grossly normal bladder. No significant abnormalities seen in the reproductive organs. BOWEL/GI: Appendix not definitively visualized. No indication of appendicitis. No diverticulitis or colitis. No free air or free fluid. NODES/RETROPERITONEUM: No adenopathy. No AAA. Page 1 of 2 [facility] [address] [place] [address] PHONE: [phone] FAX: [phone] Name .................. : JOCELYNN Ruggiero Acct Number.................. : [id number] ROOM. ................. : [place] MR Number ................... : [id number] Stay type ............. : E/R Discharge Date......... ... : Admit Date ......... : 05/06/21 Admit Phys .................... : BERNICE Hutchinson Date of ....... : 2000 Family Phys ................... : UNKNOWN KURT Phone .................. : [phone] Age ................................ : 21 Film# .................. .:[id number] Sex ................................. : M Unsigned transcriptions are preliminary reports and do not represent a medical or legal document CT ABD & PELVIS W/ IV ONLY 37711 COMPLETE:05/06/21 11:52 [facility] 56132 Reason(s): Abdominal Pain SKELETAL: Mild central disc bulge/protrusion L4-5 and L5-S1. IMPRESSION: No acute intra-abdominal abnormality specific etiology for abdominal pain is identified. Electronically Reviewed and Signed By Rai Tello MD , 05/08/21 12:11, SCB Transcribe Initials: SSR, Transcribe Date: 05/06/21 12:22, Dictation Date: Copy for: [facility] FLOR[facility] via fax Copy for: EMERGENCY DEPT via modem Copy for: 710 MED REC DISCHARGED Page 2 of 2 Name Value Range Interpretation Code Description Data Maria Eugenia rce(s) Supporting Document(s) ID Date Data Source [id number] 05/06/2021 10:10:00 AM EDT [facility] 1 OrderSheet [facility] Emergency Department [address] [place] [address] Phone #: ext- [phone] 05/06/2021 10:06 Patient: DIANA CABEZAS Sex: M : 2000 Age: 21yWEIGHT:78.9 kg (S) HEIGHT:69 inches (S) BMI:25.7ALLERGIES: NKDACHIEF COMPLAINT: abdominal painDIAGNOSIS: Abdominal pain, Gastroesophageal reflux diseaseLAB ORDERSOrder Description Priority Entered Acknowledged InitialedCBC w Diff STAT 10:46 05/06/2021 11:03 Amado Basurto R.N.;CMP STAT 10:46 05/06/2021 11:03 Amado Basurto R.N.;Lactic Acid STAT 10:46 05/06/2021 11:03 Amado Basurto R.N.;Lipase STAT 10:46 05/06/2021 11:03 Amado Basurto R.N. PA;Urinalysis (Clean STAT 10:46 05/06/2021 Ack'd: 11:03 Danya Basurto R.N.Catch) Amado Dominique Initialed: 13:38 Danya Basurto R.N.; Cancelled: Unable to Collect 13:38 Danya Basurto R.N.TSH STAT 10:46 05/06/2021 11:03 Amado Basurto R.N.;DIAGNOSTIC STUDY ORDERSOrder Description Priority Entered Acknowledged InitialedChest 2 View STAT 10:46 05/06/2021 Ack'd: 11:03 11:47 Sb,(Oxygen?(No)) Danya Hodgson R.N.; R.N. Reason for Study: Shortness of BreathCT Abd PEL W/ IV STAT 10:46 05/06/2021 Ack'd: 11:03 11:25 Sb,Contrast Only Danya Hodgson R.N.(Oxygen?(No)) PA; RBipinNBipin(IV?(Yes)) 2 OrderSheet [facility] Emergency Department [address] [place] [address] Phone #: ext- [phone] 05/06/2021 10:06 Patient: DIANA CABEZAS Sex: M : 2000 Age: 21y Reason for Study: Abdominal PainMEDICATION/IV/DRIP/FLUID ORDERSOrder Description Priority Entered Acknowledged InitialedNS IV 1000 mL 10:46 05/06/2021 Ack'd: 11:03 11:23 Sb,Bolus: : Bolus 1000 Dnaya Hodgson R.N.mL (X1) PA; R.N.Toradol IVP 30 mg 10:46 05/06/2021 Ack'd: 11:03 11:24 Amado Basurto Amber Amber R.N. PA; R.N.Zofran ODT PO 8 10:46 05/06/2021 Ack'd: 11:03 11:24 Sb,Danya Solorzano R.N.; R.N.Protonix PO 40 mg 10:46 05/06/2021 Ack'd: 11:04 11:24 Sb,(Do not crush or Danya Hodgson.NBipinchew) PA; GeraldGENERAL ORDERSOrder Description Priority Entered Acknowledged Initialed[Electronically signed by Danya Basurto R.N. (13:41 05/06/2021)][Electronically signed by Amado Dominique (09:00 05/07/2021)][Electronically locked by Danya Basurto R.N. (13:41 05/06/2021)] Name Value Range Interpretation Code Description Data Maria Eugenia rce(s) Supporting Document(s) ID Date Data Source [id number] 05/06/2021 10:10:00 AM EDT [facility] 1 Medication Reconciliation Report [facility] Emergency Department [address] [place] [address] Phone #: [phone] pik- [phone] 05/06/2021 10:06 Patient: DIANA CABEZAS Sex: M : 2000 Age: 21yWeight: 78.9 kgHeight/Length: 69 in.BMI: 25.7ALLERGIES: NKDAThe patient's Home Medications are listed below:NONE.The source(s) of the original Home Medication information:Not obtained.The following Medications were given to the patient in the Emergency Department:NS [IV] IV Fluids bolus 1000 mL wide open, administered: 11:13 05/06/2021Zofran ODT [PO] PO 8 mg, administered: 11:05/06/2021rotonix [PO] PO 40 mg, administered: 11:05/06/2021Toradol [IVP] IVP 30 mg, administered: :05/06/2021The following Medications were prescribed to the patient:Pepcid 20 mg tablet Take 1 tablet twice a day as directed for 30 days -- Dispense 60 tablet. Refills: 0.Subst itution permitted.Pharmacy - [facility] [id number] ; [place] [address]. . -- HUSSAIN Maradiaga Name Value Range Interpretation Code Description Data Maria Eugenia rce(s) Supporting Document(s) ID Date Data Source [id number] 05/06/2021 10:10:00 AM EDT [facility] 1 Medication Administration Record [facility] Emergency Department [address] [place] [address] Phone #: ext- [phone] 05/06/2021 10:06 Patient: DIANA CABEZAS Sex: M : 2000 Age: 21yWeight: 78.9 kgHeight/Length: 69 inBMI: 25.7ALLERGIES: NKDA Date/Time Medication Administered Medication OrderedStart NS [IV] NS IV 1000 mL Bolus: : Bolus [id number] 05/06/2021 Dose: IV Fluids mL (X1)Danya Basurto R.N. Bolus: 1000 mL wide open---- Dispensed: 1000 mL bagStop Site: #1 left AC12:36 05/06/2021Danya Basurto R.N.Given TORADOL [IVP] (KETOROLAC Toradol IVP 30 mg11:19 05/06/2021 TROMETHAMINE)aDnya Basurto R.N. Dose: 30 mg IVP Site: #1 left ACGiven ZOFRAN ODT [PO] (ONDANSETRON Zofran ODT PO 8 mg11:14 05/06/2021 HCL)Danya Basurto R.N. Dose: 8 mg Oral Disintegrating Tablets POGiven PROTONIX [PO] (PANTOPRAZOLE Protonix PO 40 mg (Do not crush11:19 05/06/2021 SODIUM) or chew)Jaida Basurto RSamantha Dose: 40 mg Tablets PO Name Value Range Interpretation Code Description Data Maria Eugenia rce(s) Supporting Document(s) ID Date Data Source [id number] 05/06/2021 10:10:00 AM EDT [facility] 1 General Instructions [facility] Emergency Department [address] [place] [address] Phone #: ext- [phone] 05/06/2021 10:06 Patient: DIANA CABEZAS Sex: M : 2000 Age: 21yAcute generalized abdominal pain of undetermined cause.Gastroesophageal reflux disease with esophagitis.INSTRUCTIONSDo not work today.Warnings: Further evaluation is necessary. It is very important to follow up with a healthcare provider.GENERAL WARNINGS: Return or contact your physician immediately if your condition worsens orchanges unexpectedly, if not improving as expected, or if other problems arise. SPECIFICALLY, return ifthere is no improvement in the pain in the abdomen.Your Current Medications: .No home medication.Prescription Medications:Pepcid 20 mg tablet Take 1 tablet twice a day as directed for 30 days -- Dispense 60 tablet. Refills: 0.Substitution permitted.Pharmacy - [facility] [id number] ; [place] [address]. .Follow-up:Follow up with your doctor Sunday. Reason for referral: evaluation and treatment. Summary of careprovided to patient.Understanding of the discharge instructions verbalized by patient. ADDITIONAL INFORMATIONUnknown Causes of Abdominal Pain (Male)Based on your visit today, the exact cause of your abdominal pain is not clear. Your exam and testsdon't suggest a dangerous cause at this time. However, the signs of a serious problem may takemore time to appear. Although your evaluation was reassuring today, sometimes early in the courseof many conditions, exam and lab tests can appear normal. Therefore, it is important for you to watchfor any new symptoms or worsening of your condition. 2 General Instructions [facility] Emergency Department [address] [place] [address] Phone #: ext- [phone] 05/06/2021 10:06 Patient: DIANA CABEZAS Sex: M : 2000 Age: 21yIt may not be obvious what caused your symptoms. Pay attention to things that do seem to makeyour symptoms worse or better and discuss this with your doctor when you follow up.The evaluation of abdominal pain in the emergency department may only require an exam by thedoctor or it may include blood, urine or imaging studies, depending on many factors. Sometimesexams and tests can identify a cause but in many cases, a clear cause is not found. Further testing atfollow up visits may help to suggest a clear diagnosis.Home care Rest as much as you can until your next exam. Try to avoid any medicines (unless otherwise directed by your doctor), foods, activities, or other factors that may have contributed to your symptoms. Try to eat foods that you know that you have tolerated well in the past. Certain diets may be recommended for some conditions that cause abdominal pain. However, since the cause of your symptoms may not be clear, discuss your diet more with your healthcare provider or specialist for further recommendations. If you have diarrhea, it may help to avoid dairy (lactose) for the time being. A low fat, low fiber diet can also help. Eating several small meals per day as opposed to 2 or 3 larger meals may help. Avoid dehydration. Make sure to drink plenty of water. Other options include broth, soup, gelatin, sports drinks, or other clear liquids. Watch closely for anything that may make your symptoms worse or better. Pay close attention to symptoms below that may mean your condition is getting worse.Follow-up careFollow up with your healthcare provider if your symptoms are not improving, or as advised. In somecases, you may need more testing.When to seek medical adviceCall your healthcare provider right away if any of these occur: Pain is becoming worse You are unable to take your medicines or can't keep water down due to excessive vomiting Swelling of the abdomen 3 General Instructions [facility] Emergency Department [address] [place] [address] Phone #: [phone] aid- [phone] 05/06/2021 10:06 Patient: DIANA CABEZAS Sex: M : 2000 Age: 21y Fever of 100.4F (38C) or higher, or as directed by your healthcare provider Blood in vomit or bowel movements (dark red or black color) Jaundice (yellow color of eyes and skin) New onset of weakness, dizziness or fainting New onset of chest, arm, back, neck or jaw pain [id number] [employer] [place] [address]. All rights reserved. This information is not intended as asubstitute for professional medical care. Always follow your healthcare professional's instructions.GERD (Adult) The esophagus is a tube that carries food from the mouthto the stomach. A valve (the LES, lower esophageal sphincter) at the lower end of the esophagusprevents stomach acid from flowing upward. When this valve doesn't work properly, stomach contentsmay repeatedly flow back up (reflux) into the esophagus. This is called gastroesophageal refluxdisease (GERD). GERD can irritate the esophagus. It can cause problems with pain, swallowing orbreathing. In severe cases, GERD can caus e recurrent pneumonia (from aspiration or breathing inparticles) or other serious problems. 4 General Instructions [facility] Emergency Department [address] [place] [address] Phone #: ext- [phone] 05/06/2021 10:06 Patient: DIANA CABEZAS Sex: M : 2000 Age: 21ySymptoms of reflux include burning, pressure or sharp pain in the upper abdomen or mid to lowerchest. The pain can spread to the neck, back, or shoulder. There may be belching, an acid taste inthe back of the throat, chronic cough, or sore throat, or hoarseness. GERD symptoms often occurduring the day after a big meal. They can also occur at night when lying down.Home careLifestyle changes can help reduce symptoms. If needed, your healthcare provider may prescribemedicines. Symptoms often improve with treatment, but if treatment is stopped, the symptoms oftenreturn after a few months. So most persons with GERD will need to continue treatment or gettreatment on and off.Lifestyle changes Limit or avoid fatty, fried, and spicy foods, as well as coffee, chocolate, mint, and foods with high acid content such as tomatoes and citrus fruit and juices (orange, grapefruit, lemon). Don't eat large meals, especially at night. Frequent, smaller meals are best. Don't lie down right after eating. And don't eat anything 3 hours before going to bed. Don't drink alcohol or smoke. As much as possible, stay away from second hand smoke. If you are overweight, losing weight will reduce symptoms. Don't wear tight clothing around your stomach area. If your symptoms occur during sleep, use a foam wedge to elevate your upper body (not just your head.) Or, place 4" blocks under the head of your bed. Or use 2 bed risers under your bedframe.MedicinesIf needed, medicines can help relieve the symptoms of GERD and prevent damage to the esophagus.Discuss a medicine plan with your healthcare provider. This may include one or more of the followingmedicines: Antacids to help neutralize the normal acids in your stomach. Acid blockers (Histamine or H2 blockers) to decrease acid production. Acid inhibitors (proton pump inhibitors PPIs) to decrease acid production in a different way than the blockers. They may work better, but can take a little longer to take effect.Take an antacid 30 to 60 minutes after eating and at bedtime, but not at the same time as an acidblocker.Try not to take medicines such as ibuprofen and aspirin. If you are taking aspirin for your heart or 5 General Instructions [facility] Emergency Department [address] [place] [address] Phone #: ext- [phone] 05/06/2021 10:06 Patient: DIANA CABEZAS Sex: M : 2000 Age: 21yother medical reasons, talk to your healthcare provider about stopping it.Follow-up careFollow up with your healthcare provider or as advised by our staff.When to seek medical adviceCall your healthcare provider if any of the following occur: Stomach pain gets worse or moves to the lower right abdomen (appendix area) Chest pain appears or gets worse, or spreads to the back, neck, shoulder, or arm An [id number] trial of medicine doesn't relieve your symptoms Weight loss that can't be explained Trouble or pain swallowing Frequent vomiting (can't keep down liquids) Blood in the stool or vomit (red or black in color) Feeling weak or dizzy Fever of 100.4F (38C) or higher, or as directed by your healthcare provider [employer]. [address] [place] [address]. All rights reserved. This information is not intended as asubstitute for professional medical care. Always follow your healthcare professional's instructions. You have been given the following additional information: Unknown Causes of Abdominal Pain (Male) GERD (Adult) Do not work today.(Electronically signed by HUSSAIN Maradiaga 05/07/2021 09:00) Name Value Range Interpretation Code Description Data Maria Eugenia rce(s) Supporting Document(s) ID Date Data Source [id number] 05/06/2021 10:10:00 AM EDT [facility] 1 Clinical Report - Nurses [facility] Emergency Department [address] [place] [address] Phone #: ext- [phone] 05/06/2021 10:06 Patient: DIANA CABEZAS Sex: M : 2000 Age: 21yTRIAGEArrived by private vehicle. Historian: patient. Unaccompanied. ( woke up at midnight epigastric pain,"struggling to breath " ati night per patient).Acuity: LEVEL 3.Chief Complaint: ABDOMINAL PAIN and (struggling to breath while sleeping).Alert.This started last night. Onset. (midnihgt). He has had abdominal pain. The pain is described as locatedin the epigastrium.Treatment INVENTORY CHECKER:None. (nyquil).SEPSIS SCREEN: SIRS SCREEN NEGATIVE. SEPSIS SCREEN NEGATIVE. No suspected or confirmedsigns of infection present. --10:25 05/06/21 Griselda Austin R.N.10:19 05/06/21. BP: 124/67. MAP: 86. HR: 64. RR: 18. O2 saturation: 100%. Temp: 97.8 F. Pain levelnow: 04/05. --10:25 05/06/21 Griselda Austin R.N.Weight: 78.9 kg stated. Height/Length: 69 inches Per Patient. BMI: 25.7. --10:18 05/06/21 Griselda Austin R.N.MedicationsNone. --10:22 05/06/21 Grieslda Austin R.N.AllergiesNKDA. --10:22 05/06/21 Griselda Austin R.N.PROBLEMS:Constipation.Dental Pain.Appendicitis.Abdominal Pain.Allergic Rhinitis.Febrile Illness.Rectal Bleed.TMJ Syndrome.Hemorrhoids.Myalgias. --10:22 05/06/21 Griselda Austin R.N. 2 Clinical Report - Nurses [facility] Emergency Department [address] [place] [address] Phone #: ext- [phone] 05/06/2021 10:06 [id number] Sex[facility] M : 2000 Age: 21y ADDITIONAL SURGERIES: Appendectomy. Tooth extraction. [place]eth. --10:22 05/06/21 Griselda Austin R.N. History PAST MEDICAL HX: Immunizations: up-to-date. SOCIAL HX: Never smoker. No alcohol use or drug use. No recent travel. No known contact with a sick individual. He was offered HIV testing but declined and hepatitis C testing but declined. He has not traveled outside the [place] Infectious disease exposure: No infectious disease exposure. The patient was not exposed to Coronavirus. (has been vaccinated). Patient is not a known carrier of tuberculosis, hepatitis, HIV, MRSA or VRE. Patient is not a known carrier of CRE. SELF HARM ASSESSMENT: Self harm assessment was performed. The patient answered "no" to the question(s) "Have you recently felt down, depressed, or hopeless?" and "Do you have thoughts of harming or killing yourself?". ABUSE ASSESSMENT: Abuse assessment. Abuse denied. No suspicion of abuse. No report of abuse. NUTRITIONAL RISK ASSESSMENT: The nutritional risk assessment revealed no deficiencies. FUNCTIONAL ASSESSMENT: Functional assessment: no impairments noted. LEARNING NEEDS ASSESSMENT: The learning needs assessment revealed no barriers. FALL RISK ASSESSMENT: Fall risk assessment completed. No risk factors identified. SKIN INTEGRITY ASSESSMENT: Skin integrity risk assessment completed. No skin integrity risk identified. --10:25 05/06/21 Griselda Austin R.N. Interventions Identification band on patient. To treatment room. --10:25 05/06/21 Griselda Austin R.N.PHYSICAL ASSESSMENTAmbulatory to room.GENERAL / NEURO / PSYCH: Alert. Oriented X 4. Appears in no acute distress.HEENT: Mucous membranes are pink.RESPIRATORY: Respirations not labored. Breath sounds within normal limits. ( sore throat).CVS: Normal sinus rhythm noted. Capillary refill less than 2 seconds.GI / : Abdomen soft. Abdominal tenderness in the left side of the abdomen. Bowel sounds withinnormal limits.SKIN: Skin is warm and dry. --10:43 05/06/21 Danya Basurto R.N. 3 Clinical Report - Nurses [facility] Emergency Department [address] [place] [address] Phone #: ext- [phone] 05/06/2021 10:06 Patient: DIANA CABEZAS Sex: M : 2000 Age: 21yNURSING PROGRESS NOTESPatient gowned. Reassurance given. Two patient identifiers checked. Call light placed in reach. Siderails up x 2. Bed placed in lowest position. Brakes of bed on. Patient ready for evaluation. --10: Griselda Austin R.N. 11:08 05/06/2021 Site #1 started via IV in the left antecubital space with an 20g angiocath, with aseptic technique and good blood return; one attempt. Saline lock flushed with 10 mL saline. --11:23 05/06/21 Danya Basurto R.N. 11:13 05/06/2021 Started bag #1 1000 mL IV Fluids NS; bolus of 1000 mL wide open via site #1 via IV pump. Allergies verified and confirmed 5 rights. IV patency established. IV site checked: no pain, redness, or swelling. IV flushed thoroughly pre- and post-medication administration. Information reviewed with patient including reason for taking this medication, signs of allergic reaction and precautions. Verbalizes understanding. --11:23 05/06/21 Danya Basurto R.N. 11:14 05/06/2021 Zofran ODT (Ondansetron HCl) PO Oral Disintegrating Tablets 8 mg given. Allergies verified and confirmed 5 rights. Information reviewed with patient including reason for taking this medication, signs of allergic reaction and precautions. Verbalizes understanding. --11:24 05/06/21 Danya Basurto R.N. 11:19 05/06/2021 Protonix (Pantoprazole Sodium) PO Tablets 40 mg given. Allergies verified and confirmed 5 rights. Information reviewed with patient including reason for taking this medication, signs of allergic reaction and precautions. Verbalizes understanding. --11:24 05/06/21 Danya Basurto R.N. 11:19 05/06/2021 Toradol (Ketorolac Tromethamine) IVP 30 mg given over 2 minute(s) via site #1. Allergies verified and confirmed 5 rights. IV patency established. IV site checked: no pain, redness, or swelling. IV flu shed thoroughly pre- and post-medication administration. IVP given by RN. Information reviewed with patient including reason for taking this medication, signs of allergic reaction and precautions. Verbalizes understanding. --11:24 05/06/21 Danya Basurto R.N. late entry - 11:37 05/06/21. Monitoring of patient in place. Patient gowned. Reassurance given. Rounding: Position: states comfortable. Proximity of possessions / care items: call light within easy reach. Plug ins: assured IV pump plugged in; checked status of equipment in use; located all cords, tubes, and lines to prevent fall hazard. Set expectations: advised patient of rounding protocol timing and asked if they needed anything else at this time. The patient is calm and resting quietly. Patient waiting for lab and radiology results. --12:39 05/06/21 Danya Basurto R.N. 12:36 05/06/2021 IV Fluids NS via IV site #1 Discontinued: bag #1 infused. Total amount infused: 1000ml mL. IV patency established. IV site checked: no pain, redness, or swe lling. IV flushed thoroughly. --12:36 05/06/21 Danya Basurto R.N. 11:00 05/06/21. BP: 108/68. MAP: 81. HR: 50. RR: 16. O2 saturation: 100% on room air. --12:37 05/06/21 Danya Basurto R.N. 4 Clinical Report - Nurses [facility] Emergency Department [address] [place] [address] Phone #: ext- [phone] 05/06/2021 10:06 Patient: DIANA CABEZAS [facility]#: [id number] Sex: M : 2000 Age: 21y 11:43 05/06/21. BP: 111/67. MAP: 81. HR: 44. RR: 16. O2 saturation: 100% on room air. --12:38 05/06/21 Danya Basurto R.N. 12:00 05/06/21. BP: 104/88. MAP: 93. HR: 51. RR: 16. O2 saturation: 100% on room air. --12:38 05/06/21 Danya Basurto R.N. Patient gowned. Reassurance given. Rounding: Position: states comfortable. Proximity of possessions / care items: call light within easy reach. Set expectations: advised patient of rounding protocol timing and asked if they needed anything else at this time. The patient is calm and resting quietly. Patient waiting for radiology and CT results. --12:40 05/06/21 Danya Basurto R.N. 13:24 05/06/2021 Site #1 removed upon discharge. Catheter intact. Bandage applied. --13:39 05/06/21 Danya Basurto R.N.DISPOSITION / DISCHARGE [place] Coma Scale: 15- eyes open- spontaneous (4); best verbal response- oriented (5); best motor response- obeys commands (6). Departure time: 13:25 05/06/2021. Condition at departure: improved and stable. No learning barriers present. Discharge instructions provided and reviewed with the patient. Reviewed warnings. Reviewed medication(s) side effects, precautions, dosing and course information. Prescription(s) sent electronically to pharmacy ([email or web address]). Reviewed referral to a primary care physician for followup. Patient verbalized understanding. Written instructions provided in [place]. 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 He was discharged home and unaccompanied at time of discharge. He left ambulatory and via private vehicle. Patient driving. --13:41 05/06/21 Danya Basurto R.N. 13:24 05/06/21. BP: 130/73. MAP: 92. HR: 74. RR: 16. O2 saturation: 100% on room air. Temp: 98 F (temporal). Pain level now: 0. --13:41 05/06/21 Danya Basurto R.N.Locked/Released at 05/06/2021 13:41 by Danya Basurto R.N. Name Value Range Interpretation Code Description Data Maria Eugenia rce(s) Supporting Document(s) ID Date Data Source [id number] 05/06/2021 10:10:00 AM EDT [facility] 1 Clinical Report - Physicians/Mid Levels [facility] Emergency Department [address] [place] [address] Phone #: ext- [phone] 05/06/2021 10:06 Patient: DIANA CABEZAS Sex: M : 2000 Age: 21y Time Seen: 10:35 05/06/2021. Arrived- By private vehicle. Historian- patient.HISTORY OF PRESENT ILLNESS Chief Complaint: ABDOMINAL PAIN and SOB. This started last night woke up at midnight epigastric pain, "struggling to breath " at night per patient and is still present. It was abrupt in onset and has been intermittent. It is described as "pain", sharp and cramping and it is described as located in the epigastric area. At its maximum, severity described as moderate. When seen in the E.D., severity described as moderate. No nausea, loss of appetite, vomiting or diarrhea. Similar symptoms previously. Patient has had similar symptoms several times. Recent medical care: The patient was seen recently at this facility.REVIEW OF SYSTEMSNo constipation, black stools, hematemesis, difficulty with urination or pain with urination. No urinaryfrequency, bloody stools, fever, headache or sore throat. No blurred vision, chest pain, difficulty breathing,cough or joint pain. No skin rash or chills. The patient has not had weight loss.PAST HISTORYProblems:Constipation.Dental Pain.Appendicitis.Abdominal Pain.Allergic Rhinitis.Febrile Illness.Rectal Bleed.TMJ Syndrome.Hemorrhoids.Myalgias. Additional Surgeries: Appendectomy. Tooth extraction. [place] Teeth. Medications: None. Allergies: NKDA. 2 Clinical Report - Physicians/Mid Levels [facility] Emergency Department [address] [place] [address] Phone #: ext- [phone] 05/06/2021 10:06 Patient: DIANA CABEZAS Sex: M : [birth year] Age: 21ySOCIAL HISTORYNever smoker. No alcohol use or drug use.PHYSICAL EXAMVital Signs: 05/06/2021 10:19 BP: 124/67. MAP: 86. HR: 64. RR: 18. O2 saturation: 100%. Temp: 97.8 F.Pain level now: 04/05. Have been reviewed as normal. Oxygen saturation normal.Appearance: Alert. Oriented X3. No acute distress.Eyes: Pupils equal, round and reactive to light. Eyes normal inspection.ENT: Ears normal. Nose normal. Pharynx normal.Neck: Normal inspection.CVS: Normal heart rate and rhythm. Heart sounds normal.Respiratory: No respiratory distress. Painless inspiration. Breath sounds normal. Chest nontender.Abdomen: Soft. Mild tenderness in the epigastric area. Bowel sounds normal. No organomegaly. [place].Back: Normal inspection.Skin: Skin warm and dry. Normal skin color. No rash. Normal skin turgor.Extremities: Extremities exhibit normal ROM. No lower extremity edema.Neuro: Oriented X 3.LABS, X-RAYS, AND EKGChest X-ray: No acute disease. Views: PA and lateral. The X-rays were interpreted by the radiologistand contemporaneously by me. Interpretation time: 13:16 05/06/2021.CT Abdomen - Pelvis: Normal study. No acute intra-abdominal abnormality specific etiology forabdominal pain is identified. Study type: upper abdomen; lower abdomen; pelvis. Abdomen - pelvic CTperformed with IV contrast. The study was interpreted by the radiologist and contemporaneously by me.Interpretation time: 12:02 05/06/2021.Laboratory Tests: Laboratory tests have been ordered, with results reviewed and considered in themedical decision making process. CBC w Diff: (MAURICIO: 05/06/2021 10:52) ( MsgRcvd 05/06/2021 11:14) Final results Test Result Flag Units (Reference) CBC W/AUTOMATED DIFF COMPLETE BLOOD COUNT WBC 7.1 10/uL (4.2 - 11.0) RBC 5.33 10/uL (4.50 - 6.30) HEMOGLOBIN 15.3 g/dL (14.0 - 16.0) HEMATOCRIT 44.2 % (41.0 - 51.0) MCV 82.9 fL (80.0 - 94.0) MCH 28.7 pg (27.0 - 34.0) MCHC 34.6 g/dL (31.0 - 36.0) RDW 12.5 % (11.5 - 14.8) PLATELETS 191 10/uL (150 - 450) MPV 10.3 fL (7.4 - 10.4) NEUT 59.0 % (37.0 - 80.0) LYMPH 26.4 % (25.0 - 40.0) MONO 10.4 H % (3.0 - 8.0) EOS 3.2 % (0.0 - 7.0) BASO 0.6 % (0.0 - 2.0) 3 Clinical Report - Physicians/Mid Levels [facility] Emergency Department [address] [place] [address] Phone #: ext- [phone] 05/06/2021 10:06 Patient: DIANA CABEZAS Sex: M : 2000 Age: 21y %IG 0.4 H % (0.0 - 0.0) %NRBC 0.0 % (0.0 - 0.0) #NEUT 4.20 10/uL (2.00 - 6.90) #LYMPH 1.88 10/uL (0.60 - 3.40) #MONO 0.74 10/uL (0.00 - 0.90) #EOS 0.23 10/uL (0.00 - 0.70) #BASO 0.04 10/uL (0.00 - 0.20) #IG 0.03 10/uL (0.00 - 0.10) #NRBC 0.00 10/uL (0.00 - 0.00) MANUAL DIFF NOT INDICATED RBC MORPH NOT INDICATEDCMP: (MAURICIO: 05/06/2021 10:52) ( MsgRcvd 05/06/2021 11:23) Final results Test Result Flag Units (Refe ramy) COMPREHENSIVE METABOLIC PANEL COMPREHENSIVE METABOLIC PANEL SODIUM 141 mEq/L (134 - 153) POTASSIUM 4.1 mEq/L (3.6 - 5.0) CHLORIDE 103 mEq/L (98 - 107) CO2 26 MEQ/L (22 - 30) GLUCOSE 84 MG/DL (70 - 99) BUN 14 MG/DL (7 - 21) CREATININE 0.9 MG/DL (0.7 - 1.5) BUN/CREAT 16 (8 - 27) TOTAL PROTEIN 7.4 G/DL (6.3 - 8.2) ALBUMIN 5.2 H G/DL (3.9 - 5.0) GLOBULIN 2.2 L GM/DL (2.4 - 3.2) A/G RATIO 2.4 H (0.8 - 2.0) CALCIUM 10.0 MG/DL (8.4 - 10.2) TOTAL BILI 1.0 MG/DL (0.2 - 1.3) ALKALINE PHOS 123 U/L (38 - 126) SGOT/AST 28 U/L (5 - 40) SGPT/ALT 42 U/L (7 - 56) ANION GAP 12.0 mmol/L (8.0 - 16.0) AGE 21 yrs NON-AA GFR >60 mL/min AFR AMER GFR >60 mL/min Male GFR Interprentation 20-49 yrs >60 mL/min Ksznwr87-88 yrs >56 mL/min Normal 60-69 yrs >49 mL/min Normal 70-79yrs>42 mL/min Normal 80 and above >35 mL/min Normal Female GFRInterpretation 20-39 yrs >60 mL/min Normal 40-49 yrs >58 mL/minNormal 50-59 yrs >51 mL/min Normal 60-69 yrs >45 mL/min Elyjgr17-04 yrs >39 mL/min Normal 80 and above >32 mL/min NormalLactic Acid: (MAURICIO: 05/06/2021 10:52) ( MsgRcvd 05/06/2021 10:59) Final results Test Result Flag Units (Reference) LACTIC ACID 1.1 MMOL/L (0.2 - 2.2)Lipase: (MAURICIO: 05/06/2021 10:52) ( MsgRcvd 05/06/2021 11:23) Final results Test Result Flag Units (Reference) LIPASE 31 U/L (13 - 60)TSH: (MAURICIO: 05/06/2021 10:52) ( MsgRcvd 05/06/2021 11:32) Final results Test Result Flag Units (Reference) TSH 2.15 uIU/mL (0.47 - 5.01) 4 Clinical Report - Physicians/Mid Levels [facility] Emergency Department [address] [place] [address] Phone #: ext- [phone] 05/06/2021 10:06 Patient: DIANA CABEZAS Sex: M : 2000 Age: 21y CT Abd PEL W/ IV Contrast Only: (MAURICIO: 05/06/2021 10:46) ( MsgRcvd 05/06/2021 11:52) In Progress CT ABD Reason(s): Abdominal Pain TRANSPORTATION: IV? IV?(Yes) O2? Oxygen?(No) Ro.PROGRESS AND PROCEDURESCourse of Care: 13:May 06 2021. Evaluation after observation. (Discussed labs, CXR, CT A/P and ptis agreeable with dx and tx plan.). Patient counseled in person regarding the patient's stable condition, test results, diagnosis and need for follow-up. Patient agrees with plan of care. 13:May 06 2021. Disposition: Discharged home in good and improved condition (13:16 May 06 2021).CLINICAL IMPRESSION Acute generalized abdominal pain of undetermined cause. Gastroesophageal reflux disease with esophagitis.INSTRUCTIONS Do not work today. Warnings: Further evaluation is necessary. It is very important to follow up with a healthcare provider. GENERAL WARNINGS: Return or contact your physician immediately if your condition worsens or changes unexpectedly, if not improving as expected, o r if other problems arise. SPECIFICALLY, return if there is no improvement in the pain in the abdomen. Your Current Medications: . No home medication. Prescription Medications: Pepcid 20 mg tablet Take 1 tablet twice a day as directed for 30 days -- Dispense 60 tablet. Refills: 0. Substitution permitted. Pharmacy - [facility] [id number] ; [place] [address]. . Follow-up: Follow up with your doctor Sunday. Reason for referral: evaluation and treatment. Summary of care provided to patient. 5 Clinical Report - Physicians/Mid Levels [facility] Emergency Department [address] [place] [address] Phone #: ext- [phone] 05/06/2021 10:06 Patient: DIANA CABEZAS Sex: M : 2000 Age: 21y Understanding of the discharge instructions verbalized by patient.(Electronically signed by HUSSAIN Maradiaga 05/07/2021 09:00) Name Value Range Interpretation Code Description Data Maria Eugenia rce(s) Supporting Document(s) ID Date Data Source [id number] 05/06/2021 11:32:00 AM EDT [facility] Name Value Range Interpretation Code Description Data Maria Eugenia rce(s) Supporting Document(s) Thyrotropin [Units/volume] in Serum or Plasma by Detec tion limit <= 0.05 mIU/L 2.15 uIU/mL 0.47 - 5.01 [facility] ID Date Data Source [id number] 05/06/2021 11:23:00 AM EDT [facility] Name Value Range Interpretation Code Description Data Maria Eugenia rce(s) Supporting Document(s) Lipase [Enzymatic activity/volume] in Serum or Plasma 31 U/L 13 - 60 [facility] ID Date Data Source [id number] 05/06/2021 11:23:00 AM EDT [facility] Name Value Range Interpretation Code Description Data Maria Eugenia rce(s) Supporting Document(s) COMPREHENSIVE METABOLIC PANEL [facility] COMPREHENSIVE METABOLIC PANEL Sodium [Moles/volume] in Serum or Plasma 141 mEq/L 134 - 153 [facility] Potassium [Moles/volume] in Serum or Plasma 4.1 mEq/L 3.6 - 5.0 [facility] Chloride [Moles/volume] in Serum or Plasma 103 mEq/L 98 - 107 [facility] Carbon dioxide, total [Moles/volume] in Serum or Plasma 26 MEQ/L 22 - 30 [facility] Glucose [Mass/volume] in Serum or Plasma 84 MG/DL 70 - 99 [facility] BUN 14 MG[facility]DL 7 - [facility] Creat[facility] [Mass/volume] in Serum or Plasma 0.9 MG/DL 0.7 - 1.5 [facility] BUN/CREAT 16 8 - 27 [facility] al Protein [Mass/volume] in Serum or Plasma 7.4 G/DL 6.3 - 8.2 [facility] Albumin [Mass/volume] in Serum or Plasma 5.2 G/DL 3.9 - 5.0 H [facility] Globulin [Mass/volume] in Serum by calculation 2.2 GM/DL 2.4 - 3.2 L [facility] A/G RATIO 2.4 0.8 - 2.0 [facility] Calcium [Mass/volume] in Serum or Plasma 10.0 MG/DL 8.4 - 10.2 [facility] Bilirubin.total [Mass/volume] in Serum or Plasma 1.0 MG/DL 0.2 - 1.3 [facility] Alkaline phosphatase [Enzymatic activity/volume] in Serum or Plasma 123 U/L 38 - 126 [facility] Aspartate aminotransferase [Enzymatic activity/volume] in Serum or Plasma 28 U/L 5 - 40 [facility] Alanine aminotransferase [Enzymatic activity/volume] in Seru m or Plasma 42 U/L 7 - 56 [facility] Anion gap 3 in Serum or Plasma 12.0 mmol/L 8.0 - 16.0 [facility]GE 21 y[facility] NON-[facility] GFR >60 mL/min [facility] AFR AMER GFR >60 mL/min [facility] Male GFR In terprentation 20-49 yrs >60 mL/min Normal 50-59 yrs >56 mL/min Normal 60-69 yrs >49 mL/min Normal 70-79yrs >42 mL/min Normal 80 and above >35 mL/min Normal Female GFR Interpretation 20-39 yrs >60 mL/min Normal 40-49 yrs >58 mL/min Normal 50-59 yrs >51 mL/min Normal 60-69 yrs >45 mL/min Normal 70-79 yrs >39 mL/min Normal 80 and above >32 mL/min Normal ID Date Data Source [id number] 05/06/2021 11:14:00 AM EDT [facility] Name Value Range Interpretation Code Description Data Maria Eugenia rce(s) Supporting Document(s) CBC W/AUTOMATED DIFF [facility] COMPLETE BLOOD COUNT Leukocytes [#/volume] in Blood by Automated count 7.1 10^3/uL 4.2 - 1 1.0 [facility] Erythrocytes [#/volume] in Blood by Automated count 5.33 10^6/uL 4. 50 - 6.30 [facility] Hemoglobin [Mass/volume] in Blood 15.3 g/dL 14.0 - 16.0 [facility] Hematocrit [Volume Fraction] of Blood by Automated count 44.2 % 4 1.0 - 51.0 [facility] Erythrocyte mean corpuscular volume [Entitic volume] by Auto mated count 82.9 fL 80.0 - 94.0 [facility] Erythrocyte mean corpuscular hemoglobin [Entitic mass] by Automated count 28.7 pg 27.0 - 34.0 [facility] Erythrocyte mean corpuscular hemoglobin concentration [Mass/volume] by Automated count 34.6 g/dL 31.0 - 36.0 [facility] Erythrocyte distribution width [Ratio] by Automated count 12.5 % 11.5 - 14.8 [facility] Platelets [#/volume] in Blood by Automated count 191 10^3/uL 150 - 45 0 [facility] Platelet mean volume [Entitic volume] in Blood by Automated count 10.3 fL 7.4 - 10.4 [facility] Neutrophils/100 leukocytes in Blood by Automated count 59.0 % 37. 0 - 80.0 [facility] Lymphocytes/100 leukocytes in Blood by Manual count 26.4 % 25.0 - 40.0 [facility] Monocytes/100 leukocytes in Blood by Automated count 10.4 % 3.0 - 8.0 H [facility] Eosinophils/100 leukocytes in Blood by Automated count 3.2 % 0.0 - 7.0 [facility] Basophils/100 leukocytes in Blood by Automated count 0.6 % 0.0 - 2.0 [facility] %IG 0.4 % 0.0 - 0.0 [facility] %NRBC 0.0 % 0.0 - 0.0 [facility] al Neutrophils [#/volume] in Blood by Automated count 4.20 10^3/uL 2.00 - 6.90 [facility] Lymphocytes [#/volume] in Blood by Automated count 1.88 10^3/uL 0.60 - 3.40 [facility] Monocytes [#/volume] in Blood by Automated count 0.74 10^3/uL 0.00 - 0.90 [facility] Eosinophils [#/volume] in Blood by Automated count 0.23 10^3/uL 0.00 - 0.70 [facility] Basophils [#/volume] in Blood by Automated count 0.04 10^3/uL 0.00 - 0.20 [facility] #IG 0.03 10^3/uL 0.00 - 0.10 [facility] #NRBC 0.00 10^3/uL 0.00 - 0.00 [facility] MANUAL DIFF NOT INDICATED [facility] RBC MORPH NOT INDICATED [facility] spital ID Date Data Source [id number] 05/06/2021 10:59:00 AM EDT [facility] Name Value Range Interpretation Code Description Data Maria Eugenia rce(s) Supporting Document(s) Lactate [Moles/volume] in Serum or Plasma 1.1 MMOL/L 0.2 - 2.2 [facility] ID Date Data Source [id number] 12/03/2020 06:53:00 AM EDT [facility] 1 OrderSheet [facility] Emergency Department [address] [place] [address] Phone #: ext- [phone] 12/03/2020 06:52 Patient: DIANA CABEZAS Sex: M : 2000 Age: 20yWEIGHT:77.1 kg (S) HEIGHT:69 inches (S) BMI:25.1ALLERGIES: NKDACHIEF COMPLAINT: muscle aches, headacheDIAGNOSIS: Muscle painLAB ORDERSOrder Description Priority Entered Acknowledged InitialedDIAGNOSTIC STUDY ORDERSOrder Description Priority Entered Acknowledged InitialedMEDICATION/IV/DRIP/FLUID ORDERSOrder Description Priority Entered Acknowledged InitialedIbuprofen PO 600 07:20 12/03/2020 07:27 Griselda Austinmg (NOW x1) Paresh Lanza ; R.N.GENERAL ORDERSOrder Description Priority Entered Acknowledged Initialed[Electronically signed by Griselda Austin R.NBipin (07:34 12/03/2020)][Electronically signed by Paresh Lanza (07:53 12/03/2020)][Electronically locked by Griselda Austin R.N. (07:34 12/03/2020)] Name Value Range Interpretation Code Description Data Maria Eugenia rce(s) Supporting Document(s) ID Date Data Source [id number] 12/03/2020 06:53:00 AM EDT [facility] 1 Medication Reconciliation Report [facility] Emergency Department [address] [place] [address] Phone #: ext- [phone] 12/03/2020 06:52 Patient: DIANA CABEZAS Sex: M : 2000 Age: 20yWeight: 77.1 kgHeight/Length: 69 in.BMI: 25.1ALLERGIES: NKDAThe patient's Home Medications are listed below:NONE.The source(s) of the original Home Medication information:patientThe following Medications were given to the patient in the Emergency Department:Ibuprofen [PO] PO 600 mg, administered: 07:27 12/03/2020The following Medications were prescribed to the patient:None. Name Value Range Interpretation Code Description Data Maria Eugenia rce(s) Supporting Document(s) ID Date Data Source [id number] 12/03/2020 06:53:00 AM EDT [facility] 1 Medication Administration Record [facility] Emergency Department [address] [place] [address] Phone #: ext- [phone] 12/03/2020 06:52 Patient: DIANA CABEZAS Sex: M : 2000 Age: 20yWeight: 77.1 kgHeight/Length: 69 inBMI: 25.1ALLERGIES: NKDA Date/Time Medication Administered Medication OrderedGiven IBUPROFEN [PO] Ibuprofen PO 600 mg (NOW x1)07:27 12/03/2020 Dose: 600 mg Tablets Griselda Juarez R.N. Name Value Range Interpretation Code Description Data Maria Eugenia rce(s) Supporting Document(s) ID Date Data Source [id number] 12/03/2020 06:53:00 AM EDT [facility] 1 General Instructions [facility] Emergency Department [address] [place] [address] Phone #: [phone] [phone] 12/03/2020 06:52 Patient: DIANA CABEZAS Sex: M : 2000 Age: 20yMyalgiasINSTRUCTIONSDo not work for two days.Warnings: GENERAL WARNINGS: Return or contact your physician immediately if your conditionworsens or changes unexpectedly, if not improving as expected, or if other problems arise.Understanding of the discharge instructions verbalized by patient.Follow- up with: [facility] Respective Team Mando Castañeda [place], , , [address] [address], , [place], [address] Follow up Sunday in three days if not well. Call for an appointment. ADDITIONAL INFORMATIONMyalgiasMyalgias are another word for muscle aches and soreness. This is a symptom, not adisease. Myalgias can have many causes. A cold, the flu, or any infection can cause them. So canany illness with a high fever. They may happen after heavy exercise or injury such as an accident orfall. Some medicines such as statins and certain antidepressants can cause myalgias. They can alsobe a symptom of long-term (chronic) health problems such as lupus, chronic fatigue, orhypothyroidism. With these illnesses, other serious symptoms often occur with muscle pain andsoreness.Myalgias most often go away on their own. If they don't go away, come back, or are severe, you mayneed tests to help find the cause.Home care Rest until you feel better. Follow instructions that you were given for how to care for yourself. This may depend on the cause of your myalgias. If myalgia is thought to be because of a medicine, talk with the doctor who prescribed the 2 General Instructions [facility] Emergency Department [address] [place] [address] Phone #: ext- [phone] 12/03/2020 06:52 ------ Patient: DIANA CABEZAS Sex: M : 2000 Age: 20y medicine about what to do. To control pain, take prescription or [id number] medicines as directed. Unless told not to, you can try acetaminophen or ibuprofen.Follow-up careFollow up with your healthcare provider or as advised. If your symptoms don't go away in a few daysor if they come back, follow up with your healthcare provider for an exam and testing.When to see medical adviceCall your healthcare provider for any of the following: Fever of 100.4F (38C) or higher, or as directed by your healthcare provider Pain that gets worse and not better, or that goes away and comes back New joint pains New rash Severe headache, neck pain, drowsiness, or confusion [id number] [employer]. [address] [place] [address], [place] [address]. All rights reserved. This information is not intended as asubstitute for professional medical care. Always follow your healthcare professional's instructions. You have been given the following additional information: Myalgias Do not work for two days.(Electronically signed by Paresh Lanza 12/03/2020 07:53) Name Value Range Interpretation Code Description Data Maria Eugenia rce(s) Supporting Document(s) ID Date Data Source [id number] 12/03/2020 06:53:00 AM EDT [facility] 1 Clinical Report - Nurses [facility] Emergency Department [address] [place] [address] Phone #: trs- [phone] 12/03/2020 06:52 Patient: DIANA CABEZAS Sex: M : 2000 Age: 20yTRIAGEArrived by private vehicle. Historian: patient.Triage time: 06:58 12/03/2020. Acuity: LEVEL 4.Chief Complaint: FEVER, CHILLS and "NOT FEELING WELL".This started today. ( was Covid vaccinated yesterday). She has had a sore throat and a cough andheadache. ( Back pain).Treatment INVENTORY CHECKER:None.SEPSIS SCREEN: SIRS SCREEN NEGATIVE. SEPSIS SCREEN NEGATIVE. No suspected or confirmedsigns of infection present. --07:04 12/03/20 Jacques Daniel RN06:58 12/03/20. BP: 126/70 (regular adult cuff) taken on the right arm, via an automated monitor, whilelying. MAP: 88. HR: 82 (regular, normal rate and strong). RR: 18 (regular, unlabored and normal). [id number]: 98% on room air. Temp: 97.8 F (oral). Pain level now: 04/05. --07:04 12/03/20 Jacques Daniel RN.Weight: 77.1 kg stated. Height/Length: 69 inches Per Patient. BMI: 25.1. --07:00 12/03/20 Jacques Daniel RN.MedicationsNone. --06:59 12/03/20 Jacques Daniel RN.AllergiesNKDA. --07:00 12/03/20 Jacques Daniel RN.Medication/allergy information source: the patient. --07:04 12/03/20 Jacques Daniel RN.HistoryPAST MEDICAL HX: Negative. Immunizations: up-to-date.SURGERY HX: Appendectomy.SOCIAL HX: Never smoker. No alcohol use or drug use. No recent travel. No known contact with a sickindividual. She was offered HIV testing but declined and hepatitis C testing but declined. She has nottraveled outside the [place]Infectious disease exposure: No infectious disease exposure.SELF HARM ASSESSMENT: Self harm assessment was performed. The patient answered "no" to the 2 Clinical Report - Nurses [facility] Emergency Department [address] [place] [address] Phone #: ext- [phone] 12/03/2020 06:52 Patient: DIANA CABEZAS Sex: M : 2000 Age: 20y question(s) "Have you recently felt down, depressed, or hopeless?", "Do you have thoughts of harming or killing yourself?", "Do you have a plan for harming or killing yourself?", "Have you recently had thoughts about harming or killing others?", "Do you have any dangerous items in your possession?", "Have you noticed less interest or pleasure in doing things?", "Are you here because you tried to hurt yourself?" and "Have you ever tried to hurt yourself before today?". ABUSE ASSESSMENT: No report of abuse. FALL RISK ASSESSMENT: Fall risk assessment completed. No risk factors identified. --07:04 12/03/20 Jacques Daniel RN. FAMILY HX: No significant family medical history. --07:24 12/03/20 Paresh Lanza. Assessment The patient states feels the same. --07:04 12/03/20 Jacques Daniel RN.PHYSICAL ASSESSMENTAmbulatory to room.GENERAL / NEURO / PSYCH: Alert. Oriented X 4. Appears in distress.HEENT: Pupils equal, round and reactive to light. Mucous membranes are pink.RESPIRATORY: Respirations not labored. Chest nontender. Breath sounds within normal limits.CVS: Capillary refill less than 2 seconds. Pulses within normal limits.GI / : Abdomen soft and nontender and normal bowel sounds.SKIN: Skin intact. Skin is warm and dry. Normal skin turgor. --07:05 12/03/20 Jacques Daniel RN.NURSING PROGRESS NOTESPatient gowned. Head of bed elevated 30 degrees. Reassurance given to the patient. Call light placedin reach of patient. Bed placed in lowest position. Brakes of bed on. Patient ready for evaluation- EDphysician notified. --07:05 12/03/20 Jacques Daniel RN 07:27 12/03/2020 Ibuprofen PO Tablets 600 mg given. Allergies verified and confirmed 5 rights. Information reviewed with patient including reason for taking this medication, signs of allergic reaction and precautions. Verbalizes understanding. --07:27 12/03/20 Griselda Austin R.N.DISPOSITION / DISCHARGE 07:31 12/03/20. BP: 132/76. MAP: 94. HR: 84. RR: 18. O2 saturation: 98%. Temp: 98 F. Pain level now: 12/04. --07:32 12/03/20 Griselda Austin R.N. Condition at departure: improved. No learning barriers present. Discharge instructions provided and reviewed with the patient. Patient verbalized understanding. Written inst ructions provided in [place]. The patient was discharged home and accompanied by stainless steel finisher. He left ambulatory and via private vehicle. Manager Care driving. --07:34 12/03/20 Griselda Austin R.N. Departure time: 07:34 12/03/2020. --07:34 12/03/20 Griselda Austin R.N. 3 Clinical Report - Nurses [facility] Emergency Department [address] [place] [address] Phone #: ext- [phone] 12/03/2020 06:52 Patient: DIANA CABEZAS Sex: M : 2000 Age: 20yLocked/Released at 12/03/2020 07:34 by Griselda Austin R.N. Name Value Range Interpretation Code Description Data Maria Eugenia rce(s) Supporting Document(s) ID Date Data Source [id number] 12/03/2020 06:53:00 AM EDT [facility] 1 Clinical Report - Physicians/Mid Levels [facility] Emergency Department [address] [place] [address] Phone #: ext- [phone] 12/03/2020 06:52 Patient: DIANA CABEZAS Sex: M : 2000 Age: 20y Time Seen: 07:11 12/03/2020. Arrived- By private vehicle. Historian- patient.HISTORY OF PRESENT ILLNESS Chief Complaint: MUSCLE ACHES and HEADACHE. This started last night and is still present (persistent). At its maximum, severity described as moderate. When seen in the E.D., severity described as moderate. Modifying factors. Not relieved by anything. No loss of appetite, weight loss, visual disturbance or weakness. He has had a headache, f atigue and muscle aches. Denies sleep problem. No decreased urine output. (Patient received COVID vaccine yesterday afternoon and around 9 pm complains of body aches, fatigue and cough. Patient thought he had a fever. He denies ever baljit COVID infection prior to vaccine. No shortness of breath. He did not have a thermometer. No lightheadedness.). Similar symptoms previously. None. Recent medical care: Not recently seen/assessed.REVIEW OF SYSTEMSThe patient has had a sore throat, fever, fever and muscle aches. He has had a sore throat, cough andheadache. No sinus drainage, difficulty breathing, nausea, diarrhea or chills. No difficulty with urination,back pain, calf pain, double vision or anorexia. No weight loss, chest pain, abdominal pain, dizziness ordiabetic symptoms. All other systems reviewed and are negative.PAST HISTORYSee nurses notes. Problems: Allergic Rhinitis. TMJ Syndrome. Additional Surgeries: Appendectomy. Tooth extraction. Medications: None. Allergies: NKDA.SOCIAL HISTOR Y 2 Clinical Report - Physicians/Mid Levels [facility] Emergency Department [address] [place] [address] Phone #: ext- [phone] 12/03/2020 06:52 Patient: DIANA CABEZAS Sex: M : 2000 Age: 20y Never smoker.FAMILY HISTORYNo significant family medical history.ADDITIONAL NOTESThe nursing notes have been reviewed.PHYSICAL EXAMVital Signs: 12/03/2020 06:58 BP: lying 126/70. MAP: 88. HR: 82. RR: 18. O2 saturation: 98% on roomair. Temp: 97.8 F. Pain level now: 8/10.Appearance: Alert. No acute distress.Eyes: Pupils equal, round and reactive to light. Eyes normal inspection.ENT: Nose normal. Pharynx normal.Neck: Normal inspection. Neck supple.CVS: Normal heart rate and rhythm. Heart sounds normal.Respiratory: No respiratory distress. Breath sounds normal. Chest nontender.Abdomen: No visible injury. Soft and nontender. Bowel sounds normal.Back: Normal inspection.Skin: Skin warm and dry. Normal skin color. No rash. Normal skin turgor. (no cellulitis at site ofvaccine injection over left deltoid).Extremities: Extremities exhibit normal ROM. No lower extremity edema.Neuro: Oriented X 3. No motor deficit. No sensory deficit.PROGRESS AND PROCEDURESCourse of Care: 07:26 12/03/20. non-toxic appearing. No signs of anaphylaxis. no evidence of any allergicreaction. old labs and work up reviewed. Patient states he just needs a day of rest from duties at [employer]. Disposition: Discharged. Condition: stable.CLINICAL IMPRESSION MyalgiasINSTRUCTIONS Do not work for two days. Warnings: GENERAL WARNINGS: Return or contact your physician immediately if your condition worsens or changes unexpectedly, if not improving as expected, or if other problems arise. 3 Clinical Report - Physicians/Mid Levels [facility] Emergency Department [address] [place] [address] Phone #: ext- [phone] 12/03/2020 06:52 Patient: DIANA CABEZAS Sex: M : 2000 Age: 20y Understanding of the discharge instructions verbalized by patient. [facility] with: [facility] Res[facility] Team Mando Luz [place], , , [address] [facility], , [place], [address] Follow up Sunday in three days if not well. Call for an appointment.(Electronically signed by Paresh Lanza 12/03/2020 07:53) Name Value Range Interpretation Code Description Data Maria Eugenia rce(s) Supporting Document(s) ID Date Data Source [id number] 11/18/2020 12:50:00 PM EDT [facility] Name Value Range Interpretation Code Description Data [facility] rce(s) Supporting Document(s) CBC W/AUTOMATED DIFF [facility] COMPLETE BLOOD COUNT Leukocytes [#/volume] in Blood by Automated count 8.3 10^3/uL 4.2 - 1 1.0 [facility] Erythrocytes [#/volume] in Blood by Automated count 5.11 10^6/uL 4. 20 - 5.40 [facility] Hemoglobin [Mass/volume] in Blood 14.4 g/dL 12.0 - 16.0 [facility] Hematocrit [Volume Fraction] of Blood by Automated count 41.7 % 3 7.0 - 47.0 [facility] Erythrocyte mean corpuscular volume [Entitic volume] by Auto mated count 81.6 fL 81.0 - 101 [facility] Erythrocyte mean corpuscular hemoglobin [Entitic mass] by Automated count 28.2 pg 27.0 - 34.0 [facility] Erythrocyte mean corpuscular hemoglobin concentration [Mass/volume] by Automated count 34.5 g/dL 31.0 - 36.0 [facility] Erythrocyte distribution width [Ratio] by Automated count 11.7 % 11.5 - 14.5 [facility] Platelets [#/volume] in Blood by Automated count 199 10^3/uL 150 - 45 0 [facility] Platelet mean volume [Entitic volume] in Blood by Automated count 9.7 fL 7.4 - 10.4 [facility] Neutrophils/100 leukocytes in Blood by Automated count 72.1 % 37. 0 - 80.0 [facility] Lymphocytes/100 leukocytes in Blood by Manual count 15.1 % 25.0 - 40.0 L [facility] Monocytes/100 leukocytes in Blood by Automated count 11.0 % 3.0 - 8.0 H [facility] Eosinophils/100 leukocytes in Blood by Automated count 1.2 % 0.0 - 7.0 [facility] Basophils/100 leukocytes in Blood by Automated count 0.2 % 0.0 - 2.5 [facility] %IG 0.4 % 0.0 - 0.0 H [facility] %NRBC 0.0 % 0.0 - 0.0 [facility] al Neutrophils [#/volume] in Blood by Automated count 6.01 10^3/uL 2.00 - 6.90 [facility] Lymphocytes [#/volume] in Blood by Automated count 1.26 10^3/uL 0.60 - 3.40 [facility] Monocytes [#/volume] in Blood by Automated count 0.92 10^3/uL 0.00 - 0.90 H [facility] Eosinophils [#/volume] in Blood by Automated count 0.10 10^3/uL 0.00 - 0.70 [facility] Basophils [#/volume] in Blood by Automated count 0.02 10^3/uL 0.00 - 0.20 [facility] #IG 0.03 10^3/uL 0.00 - 0.10 [facility] #NRBC 0.00 10^3/uL 0.00 - 0.00 [facility] ospital MANUAL DIFF NOT INDICATED [facility] RBC MORPH NOT INDICATED [facility] ID Date Data Source [id number] 11/12/2020 03:39:00 PM EDT [facility] [address] [place] [address] PHONE: [phone] FAX: [phone] Name .................. : JOCELYNN Ruggiero Acct Number.................. : [id number] ROOM. ................. : TR-04 MR Number ................... : [id number] Stay type ............. : E/R Discharge Date......... ... : 11/11/20 Admit Date ......... : 11/11/20 Admit Phys .................... : [facility] Date of ....... : 2000 Family Phys ................... : UNKNOWN KURT Phone .................. : [phone] Age ................................ : 20 Film# .................. .:[id number] Sex ................................. : M Unsigned transcriptions are preliminary reports and do not represent a medical or legal document CT ABD & PELVIS W/ IV ONLY [id number] COMPLETE:11/11/20 19:01 MICHAEL 6555 Reaso n(s): llq pain CT OF THE ABDOMEN AND PELVIS WITH CONTRAST: INDICATION: Left lower quadrant pain. FINDINGS: The lung bases are normal. There is normal contrast-enhanced CT appearance of the liver, spleen, pancreas, adrenal glands and kidneys. No gallbladder wall thickening or biliary duct dilatation. The visualized bowel is normal in caliber. There is no excess stool. No bowel wall thickening is appreciated. The appendix is not definitively visualized, but there are no right lower quadrant inflammatory changes. The bladder and pelvic organs appear normal. No acute osseous abnormality. No lymphadenopathy. IMPRESSION: No acute intra-abdominal process. While performing the above CT examination, radiation dose reduction was accomplished utilizing automated exposure control, adjusting of the mA and kV based on the patient's body size and/or the use of imperative reconstructive techniques. CT dose: 601.7 mGycm Page 1 of 2 [facility] [address] [place] [address] PHONE: [phone] FAX: [phone] Name .................. : JOCELYNN Ruggiero Acct Number.................. : [id number] ROOM. ................. : TR-04 MR Number ................... : [id number] Stay type ............. : E/R Discharge Date......... ... : 11/11/20 Admit Date ......... : 11/11/20 Admit Phys .................... : SHANIQUA Date of ....... : 2000 Family Phys . .................. : UNKNOWN KURT Phone .................. : [phone] Age ................................ : 20 Film# .................. .:[id number] Sex ................................. : M Unsigned transcriptions are preliminary reports and do not represent a medical or legal document CT ABD & PELVIS W/ IV ONLY [id number] COMPLETE:11/11/20 19:01 MICHAEL 6555 Reason(s): llq pain Contrast agent in mL: 75 Isovue 370 Method of administration: Intravenous Electronically Reviewed and Signed By Rajesh Marques M.D. , 11/12/20 15:39, [place] Transcribe Initials: FANNY , Transcribe Date: 11/12/20 00:05, Dictation Date: Copy for: EMERGENCY DEPT via modem Copy for: 710 MED REC DISCHARGED Page 2 of 2 Name Value Range Interpretation Code Description Data Maria Eugenia rce(s) Supporting Document(s) ID Date Data Source [id number] 11/11/2020 01:32:00 PM EDT [facility] 1 OrderSheet [facility] Emergency Department [address] [place] [address] Phone #: ext- [phone] 11/11/2020 13:24 Patient: DIANA CABEZAS Sex: M : 2000 Age: 20yWEIGHT:77.5 kg (S) HEIGHT:69 inches (S) BMI:25.2ALLERGIES: No Known Drug AllergyCHIEF COMPLAINT: rectal bleedingDIAGNOSIS: Abdominal pain, Rectal hemorrhageLAB ORDERSOrder Description Priority Entered Acknowledged InitialedTroponin-T STAT 13:33 11/11/2020 Cancelled: Wrong Patient 13:39 Debby Booth RN ;CBC w Diff STAT 13:45 11/11/2020 13:52 Griselda Austin Victoria R.N. ;CMP STAT 13:45 11/11/2020 13:52 Griselda Austin Victoria R.N. ;Lipase STAT 13:45 11/11/2020 13:52 Griselda Austin Victoria R.N. ;Urinalysis (Clean STAT 13:45 11/11/2020 13:52 Giovanni Austin) Debby Ramos R.N. ;CRP STAT 13:45 11/11/2020 13:52 Griselda Austin Victoria R.N. ;Occult Blood Stool 13:45 11/11/2020 13:52 Aranza Austiniagnostic 1 slide Debby Ramos R.N. ;DIAGNOSTIC STUDY ORDERSOrder Description Priority Entered Acknowledged InitialedCT Abd PEL W/ IV STAT 13:45 11/11/2020 14:02 Griselda AustinContrast Only Debby Ramos R.N.(Oxygen?(No)) ;(IV?(Yes)) Reason for Study: llq painMEDICATION/IV/DRIP/FLUID ORDERS 2 OrderSheet [facility] Emergency Department [address] [place] [address] Phone #: ext- [phone] 11/11/2020 13:24 Patient: DIANA CABEZAS Sex: M : 2000 Age: 20yOrder Description Priority Entered Acknowledged InitialedToradol IVP 30 mg 13:45 11/11/2020 13:53 Griselda Austin(NOW) Debby Ramos R.N. ;GENERAL ORDERSOrder Description Priority Entered Acknowledged InitialedEKG 13:33 11/11/2020 Cancelled: Wrong Patient 13:39 Debby Booth RN ;NPO 13:45 11/11/2020 13:46 Griselda Austin Victoria R.N. ;Saline Lock 13:45 11/11/2020 13:46 Griselda Austin Victoria R.N. ;[Electronically signed by Griselda Austin R.N. (15:24 11/11/2020)][Electronically signed by Debby Ramos (19:28 11/11/2020)][Electronically locked by Griselda Austin R.N. (15:24 11/11/2020)] Name Value Range Interpretation Code Description Data Maria Eugenia rce(s) Supporting Document(s) ID Date Data Source [id number] 11/11/2020 01:32:00 PM EDT [facility] 1 Medication Reconciliation Report [facility] Emergency Department [address] [place] [address] Phone #: ext- [phone] 11/11/2020 13:24 Patient: DIANA CABEZAS Sex: M : 2000 Age: 20yWeight: 77.5 kgHeight/Length: 69 in.BMI: 25.2ALLERGIES: No Known Drug AllergyThe patient's Home Medications are listed below:NONE.The source(s) of the original Home Medication information:Not obtained.The following Medications were given to the patient in the Emergency Department:Toradol [IVP] IVP 30 mg, administered: 13:53 11/11/2020The following Medications were prescribed to the patient:ondansetron 4 mg disintegrating tablet Take 1 tablet three times a day as needed for 3 days -- fornausea. Dispense 9 tablet. Refills: 0. Substitution permitted.Pharmacy - [facility] [id number] ; [place] [address]. . -- Debby Ramos Name Value Range Interpretation Code Description Data Maria Eugenia rce(s) Supporting Document(s) ID Date Data Source [id number] 11/11/2020 01:32:00 PM EDT [facility] 1 Medication Administration Record [facility] Emergency Department [address] [place] [address] Phone #: ext- [phone] 11/11/2020 13:24 Patient: DINAA CABEZAS Sex: M : 2000 Age: 20yWeight: 77.5 kgHeight/Length: 69 inBMI: 25.2ALLERGIES: No Known Drug Allergy Date/Time Medication Administered Medication OrderedGiven TORADOL [IVP] (KETOROLAC Toradol IVP 30 mg (NOW)13:53 11/11/2020 TROMETHAMINE)Griselda Austin R.N. Dose: 30 mg IVP Site: #1 right Name Value Range Interpretation Code Description Data Maria Eugenia rce(s) Supporting Document(s) ID Date Data Source [id number] 11/11/2020 01:32:00 PM EDT [facility] 1 General Instructions [facility] Emergency Department [address] [place] [address] Phone #: ext [phone] 11/11/2020 13:24 Patient: DIANA CABEZAS Sex: M : 2000 Age: 20yAcute left lower quadrant abdominal pain.Rectal bleed consisting of bright red blood.INSTRUCTIONSDo not work today.(the blood work as well as the CT scan of the abdomen and pelvis were normal you did have blood onyour stools. follow up with your doctor if pain persists . you might need to have a colonoscopy to figureout where the bleeding is coming from. avoid motrin for pain).Your Current Medications: .No home medication.Prescription Medications:ondansetron 4 mg disintegrating tablet Take 1 tablet three times a day as needed for 3 days -- fornausea. Dispense 9 tablet. Refills: 0. Substitution permitted.Pharmacy - [facility] [id number] ; [place] [address]. .Follow-up:Follow up with your healthcare provider PCM today. Reason for referral: evaluation. Summary of careprovided to patient via paper. ADDITIONAL INFORMATIONLower Gastrointestinal (GI) Bleeding (Stable)You have signs of blood in your stool. This is called rectal bleeding. The bleeding may have begun inanother part of your gastrointestinal (GI) tract. If the blood is bright red, it is likely coming from thelower part of the GI tract. If the blood is black or dark, it might be coming from higher up in the GItract. Very small amounts of GI bleeding may not be visible and can only be discovered during a teston your stool. Possible causes of lower GI bleeding include: Swollen inflamed veins in the rectum (hemorrhoids) Tear in the lining of the anus (anal fissures) Inflammation of a small pouch in the intestine (diverticulitis) 2 General Instructions [facility] Emergency Department [address] [place] [address] Phone #: ext- [phone] 11/11/2020 13:24 Patient: DIANA CABEZAS Sex: M : 2000 Age: 20y Inflammatory bowel disease (Crohn's disease or ulcerative colitis) Polyps (growths) in the intestine Swelling and irritation of the colon (infectious colitis) Colon cancerNote: Iron supplements and medicines for diarrhea or upset stomach can cause black stools. Foodssuch as licorice and red beets can also discolor the stool and be mistaken for bleeding. These are notbleeding and are not a cause for alarm.Home careYou have not lost a large amount of blood and your condition appears stable at this time. You mayresume normal activity as long as you feel well.Don't take NSAIDs, such as aspirin, ibuprofen, or naproxen. They can irritate the stomach and causefurther bleeding. If you are taking these medicines for other medical reasons, talk to your healthcareprovider before you stop them.Follow-up careFollow up with your healthcare provider, or as advised. Further tests may be needed to find the causeof your bleeding.When to seek medical adviceCall your healthcare provider right away for any of the following: Large amount of rectal bleeding Increasing abdominal pain Weakness, dizzinessCall 911Call 911 if any of the following occur: Loss of consciousness Vomiting blood [phone] [employer] [place] [address]. All rights reserved. This information is not intended as asubstitute for professional medical care. Always follow your healthcare professional's instructions. 3 General Instructions [facility] Emergency Department [address] [place] [address] Phone #: ext- [phone] 11/11/2020 13:24 Patient: DIANA CABEZAS Sex: M : 2000 Age: 20yUnknown Causes of Abdominal Pain (Male)Based on your visit today, the exact cause of your abdominal pain is not clear. Your exam and testsdon't suggest a dangerous cause at this time. However, the signs of a serious problem may takemore time to appear. Although your evaluation was reassuring today, sometimes early in the courseof many conditions, exam and lab tests can appear normal. Therefore, it is important for you to watchfor any new symptoms or worsening of your condition.It may not be obvious what caused your symptoms. Pay attention to things that do seem to makeyour symptoms worse or better and discuss this with your doctor when you follow up.The evaluation of abdominal pain in the emergency department may only require an exam by thedoctor or it may include blood, urine or imaging studies, depending on many factors. Sometimesexams and tests can identify a cause but in many cases, a clear cause is not found. Further testing atfollow up visits may help to suggest a clear diagnosis.Home care Rest as much as you can until your next exam. Try to avoid any medicines (unless otherwise directed by your doctor), foods, activities, or other factors that may have contributed to your symptoms. Try to eat foods that you know that you have tolerated well in the past. Certain diets may be recommended for some conditions that cause abdominal pain. However, since the cause of your symptoms may not be clear, discuss your diet more with your healthcare provider or specialist for further recommendations. If you have diarrhea, it may help to avoid dairy (lactose) for the time being. A low fat, low fiber diet can also help. Eating several small meals per day as opposed to 2 or 3 larger meals may help. Avoid dehydration. Make sure to drink plenty of water. Other options include broth, soup, gelatin, sports drinks, or other clear liquids. Watch closely for anything that may make your symptoms worse or better. Pay close attention to symptoms below that may mean your condition is getting worse.Follow-up c areFollow up with your healthcare provider if your symptoms are not improving, or as advised. In somecases, you may need more testing. 4 General Instructions [facility] Emergency Department [address] [place] [address] Phone #: ext- [phone] 11/11/2020 13:24 Patient: DIANA CABEZAS Sex: M : 2000 Age: 20yWhen to seek medical adviceCall your healthcare provider right away if any of these occur: Pain is becoming worse You are unable to take your medicines or can't keep water down due to excessive vomiting Swelling of the abdomen Fever of 100.4F (38C) or higher, or as directed by your healthcare provider Blood in vomit or bowel movements (dark red or black color) Jaundice (yellow color of eyes and skin) New onset of weakness, dizziness or fainting New onset of chest, arm, back, neck or jaw pain [phone] [employer]. [address] [place] [id number]. All rights reserved. This information is not intended as asubstitute for professional medical care. Always follow your healthcare professional's instructions. You have been given the following additional information: Lower GI Bleeding (Stable) Unknown Causes of Abdominal Pain (Male) Do not work today.(Electronically signed by Debby Ramos 11/11/2020 19:28) Name Value Range Interpretation Code Description Data Maria Eugenia rce(s) Supporting Document(s) ID Date Data Source [id number] 11/11/2020 01:32:00 PM EDT [facility] 1 Clinical Report - Nurses [facility] Emergency Department [address] [place] [address] Phone #: ext- [phone] 11/11/2020 13:24 Patient: DIANA CABEZAS Sex: M : 2000 Age: 20yTRIAGEArrived by private vehicle. Historian: patient.Triage time: 13:27 11/11/2020. Acuity: LEVEL 3.Chief Complaint: ABDOMINAL PAIN and NAUSEA and RECTAL BLEEDING.13:27 11/11/20. Alert. No acute distress.Onset. (1 hours ago). ( Last BM 1 hour ago).Treatment INVENTORY CHECKER:Recently seen at this facility. (last week, diagnosed with Constipation).SEPSIS SCREEN: SIRS SCREEN NEGATIVE. SEPSIS SCREEN NEGATIVE. No suspected or confirmedsigns of infection present. --13:33 11/11/20 Erendira Rodriguez RN13:27 11/11/20. BP: 128/78. MAP: 94. HR: 98. RR: 16. O2 saturation: 100%. Temp: 98.1 F. Pain levelnow: 10/10. Describes the quality as pressure. It has been intermittent. Pain level at maximum: 10/10. Noradiation noted. No provoking / relieving factors. --13:33 11/11/20 Erendira Rodriguez RN.Weight: 77.5 kg stated. Height/Length: 69 inches Per Patient. BMI: 25.2. --13:11/11/20 KIA Cristina.MedicationsNone. --13:11/11/20 Erendira Rodriguez RN.AllergiesNo Known Drug Allergy. --13:11/11/20 Erendira Rodriguez RN.PROBLEMS:no known problems.ADDITIONAL SURGERIES:Appendectomy. --13:11/11/20 Erendira Rodriguez RNTooth extraction. --13:11/11/20 Erendira Rodriguez RN.Kchkwtr76:11/11/20.PAST MEDICAL HX: Immunizations: up-to-date.SOCIAL HX: Never smoker. No alcohol use or drug use. No recent travel. No known contact with a sick 2 Clinical Report - Nurses [facility] Emergency Department [address] [place] [address] Phone #: ext- [phone] 11/11/2020 13:24 Patient: DIANA CABEZAS Sex: M : 2000 Age: 20y individual. He was offered HIV testing but declined and hepatitis C testing but declined. He has not traveled outside the [place] Infectious disease exposure: No infectious disease exposure. (Negative COVID screen). Patient is not a known carrier of tuberculosis, hepatitis, HIV, MRSA or VRE. Patient is not a known carrier of CRE. SELF HARM ASSESSMENT: Self harm assessment was performed. The patient answered "no" to the question(s) "Do you have thoughts of harming or killing yourself?" and "Have you recently had thoughts about harming or killing others?". ABUSE ASSESSMENT: Abuse assessment. The patient had positive responses to the question(s) "Do you feel safe in your home?" (yes). Abuse denied. No report of abuse. NUTRITIONAL RISK ASSESSMENT: The nutritional risk assessment revealed no deficiencies. FUNCTIONAL ASSESSMENT: Functional assessment: no impairments noted. LEARNING NEEDS ASSESSMENT: The learning needs assessment revealed no barriers. FALL RISK ASSESSMENT: Fall risk assessment completed. No risk factors identified. SKIN INTEGRITY ASSESSMENT: Skin integrity risk assessment completed. No skin integrity risk identified. --13:33 11/11/20 Erendira Rodriguez RN. Interventions 13:11/11/20. To treatment room. Ambulatory by hospital staff. to room 4. --13:33 11/11/20 Erendira Rodriguez RN.PHYSICAL ASSESSMENTGENERAL / NEURO / PSYCH: Alert. Oriented X 4.HEENT: Mucous membranes are pink.RESPIRATORY: Respirations not labored. Breath sounds within normal limits.CVS: Normal sinus rhythm noted. Capillary refill less than 2 seconds.GI / : Abdomen soft. Abdominal tenderness in the right lower quadrant and left lower quadrant. Bowelsounds within normal limits. Blood present in the stool. reported by pt.SKIN: Skin is warm and dry. --13:46 11/11/20 Griselda Austin R.N.NURSING PROGRESS NOTES13:11/11/20. Patient gowned. Head of bed elevated. Two patient identifiers checked. Call lightplaced in reach. Side rails up. Bed placed in lowest position. Brakes of bed on. Patient ready forevaluation- ED physician notified. --13:34 11/11/20 Erendira Rodriguez RN 13:47 11/11/2020 Site #1 started via IV in the right antecubital space with an 18g angiocath, with aseptic technique and good blood return; two attempts. --13:47 11/11/20 Griselda Austin R.N. 3 Clinical Report - Nurses [facility] Emergency Department [address] [place] [address] Phone #: ext- [phone] 11/11/2020 13:24 [id number] Sex: M : 2000 Age: 20y 13:53 11/11/2020 Toradol (Ketorolac Tromethamine) IVP 30 mg given over 2 minute(s) via site #1. Allergies verified and confirmed 5 rights. IV patency established. IV site checked: no pain, redness, or swelling. IV flushed thoroughly pre- and post-medication administration. IVP given by RN. Information reviewed with patient including reason for taking this medication, signs of allergic reaction and precautions. Verbalizes understanding. --13:53 11/11/20 Griselda Austin R.N. Patient transported to [place] by wheelchair with tech. --14:03 11/11/20 Griselda Austin R.N. 14:25 11/11/20. Patient returned from [place] by wheelchair with tech. --14:30 11/11/20 Griselda Austin R.N. 14:30 11/11/20. BP: 125/68. MAP: 87. HR: 87. RR: 18. O2 saturation: 99%. --14:30 11/11/20 Griselda Austin R.N. ( resting at present on phone). --14:30 11/11/20 Griselda Austin R.N. 15:18 11/11/2020 Site #1 removed upon discharge. Pressure dressing applied. --15:18 11/11/20 Griselda Austin R.N.DISPOSITION / DISCHARGE 15:18 11/11/20. BP: 124/69. MAP: 87. HR: 76. RR: 16. O2 saturation: 100%. Temp: 98 F. Pain level now: 0/10. --15:18 11/11/20 Griselda Austin R.N. Condition at departure: improved. No learning barriers present. Discharge instructions provided and reviewed with the patient. Reviewed medication(s) side effects, precautions, dosing and course information. Prescription(s) given to the patient and sent electronically to pharmacy. Reviewed referral to a printed circuit boards beveler for followup. Work note given. Patient verbalized understanding. Written instructions provided in [place]. The patient was discharged home and accompanied by stainless steel finisher. He left ambulatory and via private vehicle. Manager Care driving. --15:23 11/11/20 Griselda Austin R.N. Departure time: 15:24 11/11/2020. --15:24 11/11/20 Griselda Austin R.N.Locked/Released at 11/11/2020 15:24 by Griselda Austin R.N. Name Value Range Interpretation Code Description Data Maria Eugenia rce(s) Supporting Document(s) ID Date Data Source [id number] 11/11/2020 01:32:00 PM EDT [facility] 1 Clinical Report - Physicians/Mid Levels [facility] Emergency Department [address] [place] [address] Phone #: ext- [phone] 11/11/2020 13:24 Patient: DIANA CABEZAS Sex: M : 2000 Age: 20y Time Seen: 13:30 11/11/2020; initial patient contact, initial documentation. Arrived- By private vehicle. Historian- patient. Disposition decision: 15:19 11/11/2020.HISTORY OF PRESENT ILLNESS Chief Complaint: RECTAL BLEEDING. abdominal pain. This started this morning, has been moderate and is still present and now worse. The patient has had rectal bleeding, constipation and nausea but not had rectal pain or hard stools. No vomiting, diarrhea or abdominal pain. No recent travel. No known contact with a sick individual.REVIEW OF SYSTEMSNo dizziness, fainting episodes, weakness, fever or blurred vision. No sore throat, epistaxis, cough,difficulty breathing or chest pain. No hematuria, skin rash, enlarged lymph nodes, chills or joint pain. Nocomplaint of rectal foreign body. The patient has had no rectal intercourse. All other systems reviewedand are negative.PAST HISTORYSee nurses notes. Problems: TMJ Syndrome. Febrile Illness. Hemorrhoids. Additional Surgeries: Appendectomy. Tooth extraction. [place] Teeth. Medications: None. Allergies: No Known Drug Allergy.SOCIAL HISTORYNever smoker. No alcohol use or drug use.ADDITIONAL NOTESThe nursing notes have been reviewed.PHYSICAL EXAM 2 Clinical Report - Physicians/Mid Levels [facility] Emergency Department [address] [place] [address] Phone #: ext- [phone] 11/11/2020 13:24 Patient: DIANA CABEZAS Sex: M : 2000 Age: 20y Vital Signs: 11/11/2020 13:27 BP: 128/78. MAP: 94. HR: 98. RR: 16. O2 saturation: 100%. Temp: 98.1 F. Pain level now: 10/10. Oxygen saturation normal. Appearance: Alert. Oriented X3. Anxious. Eyes: Pupils equal, round and reactive to light. Eyes normal inspection. Neck: Normal inspection. Neck supple. CVS: Normal heart rate and rhythm. Heart sounds normal. Pulses normal. Respiratory: No respiratory distress. Painless inspiration. Breath sounds normal. Abdomen: Soft and nontender. Moderate tenderness in the left lower quadrant. No guarding or rebound tenderness. Bowel sounds normal. No organomegaly. Distention. No rebound tenderness or guarding. Back: Normal inspection. CVA tenderness. Rectal: Brown stool. Rectal exam normal and nontender. No hemorrhoids. Stool not melenic. No digital exam tenderness. Skin: Skin warm and dry. Normal skin color. No rash. Normal skin turgor. Extremities: Extremities exhibit normal ROM. No lower extremity edema. Neuro: Oriented X 3.LABS, X-RAYS, AND EKGCT Abdomen - Pelvis: Jerald lloyd Neal - 11/11/2020 2:25:41 PMnad. The study was interpreted by the radiologist.Laboratory Tests: CBC w Diff: (MAURICIO: 11/11/2020 13:58) ( MsgRcvd 11/11/2020 14:25) Final results Test Result Flag Units (Reference) CBC W/AUTOMATED DIFF COMPLETE BLOOD COUNT WBC 9.0 10/uL (4.2 - 11.0) RBC 5.12 10/uL (4.50 - 6.30) HEMOGLOBIN 14.6 g/dL (14.0 - 16.0) HEMATOCRIT 41.2 % (41.0 - 51.0) MCV 80.5 fL (80.0 - 94.0) MCH 28.5 pg (27.0 - 34.0) MCHC 35.4 g/dL (31.0 - 36.0) RDW 11.6 % (11.5 - 14.8) PLATELETS 229 10/uL (150 - 450) MPV 9.7 fL (7.4 - 10.4) NEUT 69.4 % (37.0 - 80.0) LYMPH 20.1 L % (25.0 - 40.0) MONO 7.6 % (3.0 - 8.0) EOS 2.2 % (0.0 - 7.0) BASO 0.4 % (0.0 - 2.0) %IG 0.3 H % (0.0 - 0.0) %NRBC 0.0 % (0.0 - 0.0) #NEUT 6.21 10/uL (2.00 - 6.90) #LYMPH 1.80 10/uL (0.60 - 3.40) #MONO 0.68 10/uL (0.00 - 0.90) #EOS 0.20 10/uL (0.00 - 0.70) #BASO 0.04 10/uL (0.00 - 0.20) #IG 0.03 10/uL (0.00 - 0.10) #NRBC 0.00 10/uL (0.00 - 0.00) MA NUAL DIFF NOT INDICATED RBC MORPH NOT INDICATED 3 Clinical Report - Physicians/Mid Levels [facility] Emergency Department [address] [place] [address] Phone #: ext- [phone] 11/11/2020 13:24 Patient: DIANA CABEZAS [facility]#: [id number] Sex: M : 2000 Age: 20y Urinalysis: (MAURICIO: 11/11/2020 13:50) ( [facility] 11/11/2020 14:22) Final results Test Result Flag Units (Reference) URINALYSIS URINALYSIS SOURCE R COLOR yellow (NORMAL: [place] CLARITY clear (NORMAL: Clear SPEC GRAVITY 1.005 (1.001 - 1.030 pH 7 (5 - 9) GLUCOSE NORM (NORMAL: Negat BILIRUBIN NEG (NORMAL: Negat KETONE NEG (NORMAL: Negat PROTEIN NEG (NORMAL: Negat NITRITE NEG (NORMAL: Negat BLOOD NEG (NORMAL: Negat LEUK EST NEG (NORMAL: Negat UROBILINOGEN NOR (less than 1.0 MICROSCOPIC Not Indicate Occult Blood Stool Diagnostic 1 slide: (MAURICIO: 11/11/2020 13:50) ( [facility] [place] 14:22) Final results Test Result Flag Units (Reference) OCCULT BLOOD POSITIVE A (NORMAL: NEGAT OCCULT BLOOD REENTER POSITIVE A (NORMAL: NEGAT { HEMOCCULT LOT # [id number] 1L ){ LOT EXP DATE 01.15 ){ PROCEDURAL CONTROL POS/NEG VALID ) Troponin-T: (MAURICIO: 11/11/2020 13:33) ( [facility] [place]/11/[place] 13:40) Canceled EKG: (MAURICIO: 11/11/2020 13:33) ( [facility] [place] 11/11/2020 13:40) Canceled.PROGRESS AND PROCEDURESCourse of Care: 14:39 11/11/20. occult blood is positive. cbc is normal. ct of the abdomen did notshow any acute pathology that can explain his pain. awaiting for the chemistries. Patient counseled in person regarding the patient's stable condition, test results, diagnosis and need for follow-up. Patient agrees with plan of care. 15:18. Disposition: Discharged home in good condition (15:19). Condition: good and stable. Discharge decision based on the following: patient's condition is stable; patient is ambulatory; patient's exam is stable; patient's exam is improved; no abnormal test results; stable condition on multiple repeat evaluations; social support is adequate; transportation is available; follow-up is available; clinical impression is consistent with outpatient treatment.CLINICAL IMPRESSION 4 Clinical Report - Physicians/Mid Levels [facility] Emergency Department [address] [place] [address] Phone #: ext- [phone] 11/11/2020 13:24 Patient: DIANA CABEZAS Sex: M : 2000 Age: 20y Acute left lower quadrant abdominal pain. Rectal bleed consisting of bright red blood.INSTRUCTIONS Do not work today. (the blood work as well as the CT scan of the abdomen and pelvis were normal you did have blood on your stools. follow up with your doctor if pain persists . you might need to have a colonoscopy to figure out where the bleeding is coming from. avoid motrin for pain). Your Current Medications: . No home medication. Prescription Medications: ondansetron 4 mg disintegrating tablet Take 1 tablet three times a day as needed for 3 days -- for nausea. Dispense 9 tablet. Refills: 0. Substitution permitted. Pharmacy - [facility] [phone] ; [place] [address]. . Follow- up: Follow up with your healthcare provider PCM today. Reason for referral: evaluation. Summary of care provided to patient via paper.(Electronically signed by Debby Ramos 11/11/2020 19:28) Name Value Range Interpretation Code Description Data Maria Eugenia rce(s) Supporting Document(s) ID Date Data Source [id number] 11/11/2020 02:53:00 PM EDT [facility] Name Value Range Interpretation Code Description Data Maria Eugenia rce(s) Supporting Document(s) C reactive protein [Mass/volume] in Serum or Plasma by High sensitivity method 0.63 MG/L 1.00 - 3.00 [facility]/S HS-CRP CUT-OFF: RELATIVE RISK: <1.0 mg/L Low 1.0 - 3.0 mg/L Average >3.0 mg/L High Optimally, the average of HS-CRP results repeated two weeks apart should be used for risk assessment. ID Date Data Source [id number] 11/11/2020 02:53:00 PM EDT [facility] Name Value Range Interpretation Code Description Data Maria Eugenia rce(s) Supporting Document(s) COMPREHENSIVE METABOLIC PANEL [facility] COMPREHENSIVE METABOLIC PANEL Sodium [Moles/volume] in Serum or Plasma 139 mEq/L 134 - 153 [facility] Potassium [Moles/volume] in Serum or Plasma 3.8 mEq/L 3.6 - 5.0 [facility] Chloride [Moles/volume] in Serum or Plasma 102 mEq/L 98 - 107 [facility] Carbon dioxide, total [Moles/volume] in Serum or Plasma 26 MEQ/L 22 - 30 [facility] Glucose [Mass/volume] in Serum or Plasma 107 MG/DL 70 - 99 H [facility] BUN 14 MG/DL 7 - 21 [facility] al Creatinine [Mass/volume] in Serum or Plasma 0.7 MG/DL 0.7 - 1.5 [facility] BUN/CREAT 20 8 - 27 [facility] al Protein [Mass/volume] in Serum or Plasma 7.3 G/DL 6.3 - 8.2 [facility] Albumin [Mass/volume] in Serum or Plasma 4.8 G/DL 3.9 - 5.0 [facility] Globulin [Mass/volume] in Serum by calculation 2.5 GM/DL 2.4 - 3.2 [facility] A/G RATIO 1.9 0.8 - 2.0 [facility] Calcium [Mass/volume] in Serum or Plasma 9.4 MG/DL 8.4 - 10.2 [facility] Bilirubin.total [Mass/volume] in Serum or Plasma <0.7 MG/DL 0.2 - 1.3 [facility] Alkaline phosphatase [Enzymatic activity/volume] in Serum or Plasma 128 U/L 38 - 126 H [facility] Aspartate aminotransferase [Enzymatic activity/volume] in Serum or Plasma 33 U/L 5 - 40 [facility] Alanine aminotransferase [Enzymatic activity/volume] in Seru m or Plasma 57 U/L 7 - 56 H [facility] Anion gap 3 in Serum or Plasma 11.0 mmol/L 8.0 - 16.0 [facility] AGE 20 yrs [facility] NON-AA GFR >60 mL/min [facility] AFR AMER GFR >60 mL/min [facility] Male GFR In terprentation 20-49 yrs >60 mL/min Normal 50-59 yrs >56 mL/min Normal 60-69 yrs >49 mL/min Normal 70-79yrs >42 mL/min Normal 80 and above >35 mL/min Normal Female GFR Interpretation 20-39 yrs >60 mL/min Normal 40-49 yrs >58 mL/min Normal 50-59 yrs >51 mL/min Normal 60-69 yrs >45 mL/min Normal 70-79 yrs >39 mL/min Normal 80 and above >32 mL/min Normal ID Date Data Source [id number] 11/11/2020 02:51:00 PM T [facility] Name Value Range Interpretation Code Description Data Maria Eugenia rce(s) Supporting Document(s) Lipase [Enzymatic activity/volume] in Serum or Plasma 41 U/L 13 - 60 [facility] ID Date Data Source [id number] 11/11/2020 02:24:00 PM T [facility] Name Value Range Interpretation Code Description Data Maria Eugenia rce(s) Supporting Document(s) CBC W/AUTOMATED DIFF [facility] COMPLETE BLOOD COUNT Leukocytes [#/volume] in Blood by Automated count 9.0 10^3/uL 4.2 - 1 1.0 [facility] Erythrocytes [#/volume] in Blood by Automated count 5.12 10^6/uL 4. 50 - 6.30 [facility] Hemoglobin [Mass/volume] in Blood 14.6 g/dL 14.0 - 16.0 [facility] Hematocrit [Volume Fraction] of Blood by Automated count 41.2 % 4 1.0 - 51.0 [facility] Erythrocyte mean corpuscular volume [Entitic volume] by Auto mated count 80.5 fL 80.0 - 94.0 [facility] Erythrocyte mean corpuscular hemoglobin [Entitic mass] by Automated count 28.5 pg 27.0 - 34.0 [facility] Erythrocyte mean corpuscular hemoglobin concentration [Mass/volume] by Automated count 35.4 g/dL 31.0 - 36.0 [facility] Erythrocyte distribution width [Ratio] by Automated count 11.6 % 11.5 - 14.8 [facility] Platelets [#/volume] in Blood by Automated count 229 10^3/uL 150 - 45 0 [facility] Platelet mean volume [Entitic volume] in Blood by Automated count 9.7 fL 7.4 - 10.4 [facility] Neutrophils/100 leukocytes in Blood by Automated count 69.4 % 37. 0 - 80.0 [facility] Lymphocytes/100 leukocytes in Blood by Manual count 20.1 % 25.0 - 40.0 L [facility] Monocytes/100 leukocytes in Blood by Automated count 7.6 % 3.0 - 8.0 [facility] Eosinophils/100 leukocytes in Blood by Automated count 2.2 % 0.0 - 7.0 [facility] Basophils/100 leukocytes in Blood by Automated count 0.4 % 0.0 - 2.0 [facility] %IG 0.3 % 0.0 - 0.0 [facility] 0.0 % 0.0 - 0.0 [facility] al Neutrophils [#/volume] in Blood by Automated count 6.21 10^3/uL 2.00 - 6.90 [facility] Lymphocytes [#/volume] in Blood by Automated count 1.80 10^3/uL 0.60 - 3.40 [facility] Monocytes [#/volume] in Blood by Automated count 0.68 10^3/uL 0.00 - 0.90 [facility] Eosinophils [#/volume] in Blood by Automated count 0.20 10^3/uL 0.00 - 0.70 [facility] Basophils [#/volume] in Blood by Automated count 0.04 10^3/uL 0.00 - 0.20 [facility] #IG 0.03 10^3/uL 0.00 - 0.10 [facility] #NRBC 0.00 10^3/uL 0.00 - 0.00 [facility] ospital MANUAL DIFF NOT INDICATED [facility] RBC MORPH NOT INDICATED [facility] ID Date Data Source [id number] 11/11/2020 02:22:00 PM EDT [facility] Name Value Range Interpretation Code Description Data Maria Eugenia rce(s) Supporting Document(s) [facility]IS [facility] URINALYSIS SOURCE R [facility] COLOR yellow NORMAL: Yellow [facility] ospital CLARITY clear NORMAL: Clear [facility] Specific gravity of Urine by Test strip 1.005 1.001 - 1.030 [facility] pH 7 5 - 9 [facility] Glucose [Mass/volume] in Urine by Test strip NORM NORMAL: Negat [facility] Bilirubin.total [Presence] in Urine by Test strip NEG NORMAL: Negative [facility] Ketones [Presence] in Urine by Test strip NEG NORMAL: Negative [facility] Protein [Mass/volume] in Urine by Test strip [facility]Presence] in Urine by Test strip NEG NORMAL: Negative [facility] BLOOD NEG NORMAL: Negative [facility] Leukocyte esterase [Presence] in Urine by Test strip NEG VIVEK L: Negative [facility] Urobilinogen [Mass/volume] in Urine by Test strip NOR less florentin n 1.0 mg/dL [facility] MICROSCOPIC Not Indicate [facility] ID Date Data Source [id number] 11/11/2020 02:20:00 PM EDT [facility] Name Value Range Interpretation Code Description Data Maria Eugenia rce(s) Supporting Document(s) OCCULT BLOOD POSITIVE NORMAL: NEGATIVE [facility] OCCULT BLOOD REENTER POSITIVE NORMAL: NEGATIVE [facility] { HEMOCCULT LOT # [id number] 1L ){ LOT EXP DATE 01.15 ){ PROCEDURAL CONTROL POS/NEG VALID ) ID Date Data Source [id number] 11/03/2020 10:37:00 AM EST [facility] [address] [place] [address] PHONE: [phone] FAX: [phone] Name .................. : JOCELYNN Ruggiero Acct Number.................. : [id number] ROOM. ................. : TR-04 MR Number ................... : [id number] Stay type ............. : E/R Discharge Date......... ... : 11/01/20 Admit Date ......... : 11/01/20 Admit Phys .................... : DEMIAN PLUMMER Date of ....... : 2000 Family Phys ................... : UNKNOWN KURT Phone .................. : [phone] Age ................................ : 20 Film# .................. .:[id number] Sex ................................. : M Unsigned transcriptions are preliminary reports and do not represent a medical or legal document ABDOMEN 1 VIEW [id number] COMPLETE:11/01/20 12:37 BEM 5795 Reason(s): LLQ pain, s/p appendectomy 3-09-16 KUB, 11/01/20: INDICATION: Left lower quadrant pain status post appendectomy 10/25/2020. FINDINGS: Bowel gas pattern is nonspecific. Mild stool is identified in the descending colon and rectosigmoid. Osseous structures appear unremarkable. IMPRESSION: Mild stool in the descending colon and rectosigmoid. Nonspecific bowel gas pattern. No acute findings. Examination dictated by HUSSAIN Walls. Examination was reviewed with Markus Fu MD, radiologist at the time of this dictation. Electronically Reviewed and Signed By Markus Fu MD , 11/03/20 10:37, KGG Transcribe Initials: SSR, Transcribe Date: 11/01/20 14:22, Dictation Date: Copy for: 710 [facility] REC DISCHARGED Page 1 of 1 Name Value Range Interpretation Code Description Data Maria Eugenia rce(s) Supporting Document(s) ID Date Data Source [id number] 10/25/2020 11:35:00 [place] [address] OPERATIVE SUMMARYNAME: JCOELYNN Ruggiero DATE OF : 2000ATTENDING PHYS: Tank Araiza MD DATE: 10/25/20 MR#: [id number] [id number] PROCEDURE: 10/25/20PREOPERATIVE DIAGNOSIS: Acute appendicitis.POSTOPERATIVE DIAGNOSIS: Acute appendicitis.ANESTHESIA: General endotracheal with KEMAL MichaelATTENDING SURGEON: Tank Araiza MDFINDINGS: Patient had an acutely inflamed, dilated appendix. Findings were consistent withacute appendicitis.PROCEDURE PERFORMED: Appendectomy.DETAILS OF PROCEDURE:The patient was brought to the operating room, placed on the operating table in supine position,given general endotracheal anesthesia. Patient's abdomen was now prepped and drapedappropriately for the procedure. Local anesthetic was infiltrated in the planned operative area usinga combination of 2% lidocaine and 0.5% Marcaine mixed in a 50-50 solution. With the use of ascalpel, a transverse Fran-Jj style incision was made in the right lower quadrant and carrieddown through the skin. The subcutaneous fat was divided with the use of coagulation cautery.Additional local anesthetic was now infiltrated into external oblique and internal obliquemusculature. With the use of cautery, a transverse incision was carried down through the externaloblique fascia. A muscle-splitting incision was now used and peritoneum identified. Theperitoneum was now grasped between clamps and additional local anesthetic infiltrated directlyinto the peritoneum. The peritoneum was now open. The right lower quadrant was explored. Thececum was immediately identified and mobilized in the operative site. The appendix nowidentified. It was noted to be acutely inflamed and dilated. The mesentery of the appendix was nowmobilized, clamped, diverted and ligated with 2-0 Vicryl ties. The appendix was now divided at itsbase between straight clamps, removed and sent to pathology for evaluation. The appendicealstump was ligated with the use of 2-0 Vicryl tie. At this time, the operative area was re-inspected,complete hemostasis assured. The cecum was now returned to the abdominal cavity and plans weremade for closure. The internal oblique musculature was re-approximated with the use of a suture ofcontinuous running suture of 3-0 Monocryl. The external oblique fascia was re- approximated withthe use of continuous running suture of 2-0 Monocryl. The skin was re-approximated with the useof interrupted subcuticular sutures of 4-0 Monocryl and Dermabond glue.ESTIMATED BLOOD LOSS: Less than 10 cc. [address] [place] [address] OPERATIVE SUMMARYNAME: JOCELYNN Ruggiero DATE OF : 2000ATTENDING PHYS: Tank Araiza MD DATE: 10/25/20 MR#: [id number] FLUIDS: Crystalloid.DRAINS: None.COMPLICATIONS: None.DISPOSITION:Patient tolerated the procedure well and was sent to the recovery room in good condition.DD: Tank Araiza MD 10/25/20 16:16DT: WALT 10/25/20 23:17DS: Tank Araiza MD 11/02/20 07:56 2 Name Value Range Interpretation Code Description Data Maria Eugenia rce(s) Supporting Document(s) ID Date Data Source [id number] 10/25/2020 04:45:00 [place] [address] HISTORY AND PHYSICALNAME: JOCELYNN Ruggiero ROOM#: TR-06DATE OF : 2000 MR#: [id number] PHYS: Rehana Arciniega MD DATE: 10/25/20CHIEF COMPLAINT: Abdominal pain.HISTORY OF PRESENT ILLNESS: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 He presented to the emergency roomcomplaining of generalized and epigastric abdominal pain. He tells us that this has been going on forapproximately 24 hours. With this pain, he has had some nausea but no vomiting. He denies any fever orchills. However, the pain is not going away and he thinks it is getting worse. The pain extends from hisepigastrium down his right side. He tells me that it started after he ate and he is no longer able to eat becauseof the pain.REVIEW OF SYSTEMS:All systems evaluated with the patient denying neuro, dermatologic, cardiac, respiratory, ormusculoskeletal abnormalities.PAST MEDICAL HISTORY:Patient denies diabetes, high blood pressure, heart, lung, kidney, blood or abnormal bleeding problems.PAST SURGICAL HISTORY:Oral surgery.SOCIAL HISTORY:The patient does not use alcohol or tobacco.FAMILY HISTORY:Mother is alive, but has heart disease. Father of heart disease.MEDICATIONS:None.ALLERGIES:None.PHYSICAL EXAMINATION:GENERAL: Patient is awake, alert, in no acute distress.VITAL SIGNS: Note that he is afebrile.HEENT: Normocephalic, atraumatic. Pupils are equal and round. He has nonicteric sclerae. There is no ear ornasal discharge.NECK: Supple. No adenopathy. No JVD. Trachea is midline. [address] [place] [address] HISTORY AND PHYSICALNAME: JOCELYNN Ruggiero ROOM#: TR-06DATE OF : 2000 MR#: [id number] PHYS: Rehana Arciniega MD DATE: 10/25/20HEART: Regular rhythm noted with no murmurs.LUNGS: Clear to auscultation. No rales. No rhonchi.ABDOMEN: No visible surgical scars. No distention. Soft, but there is marked tenderness only in the rightlower quadrant with guarding. No discretely palpable masses.EXTREMITIES: Good range of motion. Good muscle strength.NEURO: No motor or sensory deficits.LABORATORY DATA:Work up includes a CBC showing a normal white count. The patient was sent for a CT scan after he wasfound on examination to have right lower quadrant tenderness. The CT scan showed findings consistent withearly appendicitis (appendiceal dilatation with minimal appendicitis at the tip).IMPRESSION:Abdominal pain with abdominal tenderness and CT findings consistent with early appendicitis.PLAN:Appendectomy. Considering the patient's symptoms, signs and findings on work up, it appears that he hasearly appendicitis. I am recommending that he be started on antibiotics, hydrated with IV fluids and anappendectomy be performed. I discussed all of the above with the patient. I also reviewed with him risks andbenefits of the procedure. Risks which would include but not be limited to infection, bleeding and removal ofa normal appendix. Alternatives being further observation. Patient tells me he understands, he has no questionsand he gives his consent.DD: Tank Araiza MD 10/25/20 15:31DT: WALT 10/25/20 16:26DS: Tank Araiza MD 11/02/20 07:56 2 Name Value Range Interpretation Code Description Data Maria Eugenia rce(s) Supporting Document(s) ID Date Data Source [id number] 11/01/2020 08:56:00 AM EST [facility] 1 OrderSheet [facility] Emergency Department [address] [place] [address] Phone #: ext- [phone] 11/01/2020 08:48 Patient: DIANA CABEZAS Sex: M : 2000 Age: 20yWEIGHT:77.1 kg (S) HEIGHT:69 inches (S) BMI:25.1ALLERGIES: No Known Drug AllergyCHIEF COMPLAINT: abdominal painDIAGNOSIS: ConstipationLAB ORDERSOrder Description Priority Entered Acknowledged InitialedCBC w Diff STAT 09:15 11/01/2020 09:31 Rehana Whiting RN, M.D.;CMP STAT 09:15 11/01/2020 09:31 Rehana Whiting RN, M.D.;Lipase STAT 09:15 11/01/2020 09:31 Rehana Whiting RN, M.D.;Urinalysis (Clean STAT 09:15 11/01/2020 09:15 Hermes Austin Riccardo R.N. M.D.;Lactic Acid STAT 09:15 11/01/2020 09:31 Rehana Whiting RN, M.D.;DIAGNOSTIC STUDY ORDERSOrder Description Priority Entered Acknowledged InitialedAbdomen 1 View STAT 09:15 11/01/2020 09:18 Griselda Austin Riccardo R.N. M.D.; Reason for Study: LLQ pain, s/p appendectomy [id number]/IV/DRIP/FLUID ORDERSOrder Description Priority Entered Acknowledged InitialedNS IV 1000 mL 09:15 11/01/2020 09:27 Griselda AustinBolus: : Bolus 1000 Meenakshirin, Rehana R.N.mL (X1) M.D.;Reglan 10 mg IVP 09:15 11/01/2020 09:28 Nicole Austin dose: 10 mg Turrin, Rehana R.N.(NOW x1) M.D.; 2 OrderSheet [facility] Emergency Department [address] [place] [address] Phone #: ext- [phone] 11/01/2020 08:48 Patient: DIANA CABEZAS Sex: M : 2000 Age: 20yMagnesium Citrate 11:16 11/01/2020 11:16 Brandon,PO 150 mL (and Turrin, Rehana Melvin R.N.150 ml in 12 hrs) Alex;GENERAL ORDERSOrder Description Priority Entered Acknowledged InitialedNPO 09:15 11/01/2020 09:15 Griselda Austin Riccardo R.N. M.D.;Saline Lock 09:11/01/2020 09:26 Griselda Austin Riccardo R.N. M.D.;[Electronically signed by Melvin Bustamante R.N. (11/01/2020)][Electronically signed by Rehana Arciniega M.D. (12:11/01/2020)][Electronically locked by Melvin Bustamante R.N. (11/01/2020)] Name Value Range Interpretation Code Description Data Maria Eugenia rce(s) Supporting Document(s) ID Date Data Source [id number] 11/01/2020 08:56:00 AM EST [facility] 1 Medication Reconciliation Report [facility] Emergency Department [address] [place] [address] Phone #: ext- [phone] 11/01/2020 08:48 Patient: DIANA CABEZAS Sex: M : 2000 Age: 20yWeight: 77.1 kgHeight/Length: 69 in.BMI: 25.1ALLERGIES: No Known Drug AllergyThe patient's Home Medications are listed below:CONTINUE TAKING THE FOLLOWING MEDICATIONS: Ibuprofen Oral (800 mg) 1 tablet, last dose: 2 days ago, prnThe source(s) of the original Home Medication information:Not obtained.The following Medications were given to the patient in the Emergency Department:IV NS IV Fluids bolus 1000 mL over 1 hour(s), administered: 09:27 11/01/2020eglan [IVP] IVP 10 mg, administered: 09:11/01/2020Magnesium Citrate [PO] PO 300 mL, administered: 11:16 11/01/2020The following Medications were prescribed to the patient:None. Name Value Range Interpretation Code Description Data Maria Eugenia rce(s) Supporting Document(s) ID Date Data Source [id number] 11/01/2020 08:56:00 AM [facility] 1 Medication Administration Record [facility] Emergency Department [address] [place] [address] Phone #: ext- [phone] 11/01/2020 08:48 Patient: DIANA CABEZAS Sex: M : 2000 Age: 20yWeight: 77.1 kgHeight/Length: 69 inBMI: 25.1ALLERGIES: No Known Drug Allergy Date/Time Medication Administered Medication OrderedStart IV NS NS IV 1000 mL Bolus: : Bolus 136900:27 11/01/2020 Dose: IV Fluids mL (X1)Griselda Austin R.N. Bolus: 1000 mL over 1 hour(s)---- Dispensed: 1000 mL bagStop Site: #1 right AC11:17 11/01/2020Melvin Bustamante R.N.Given REGLAN [IVP] (METOCLOPRAMIDE Reglan 10 mg IVP X1 dose: 10 mg09:28 11/01/2020 HCL) (NOW x1)Griselda Austin R.N. Dose: 10 mg IVP Site: #1 right ACGiven MAGNESIUM CITRATE [PO] Magnesium Citrate PO 150 mL11:16 11/01/2020 Dose: 300 mL Oral Suspension PO (and 150 ml in 12 hrs)Melvin Bustamante R.N. Name Value Range Interpretation Code Description Data Maria Eugenia rce(s) Supporting Document(s) ID Date Data Source [id number] 11/01/2020 08:56:00 AM [facility] 1 General Instructions [facility] Emergency Department [address] [place] [address] Phone #: ext- [phone] 11/01/2020 08:48 Patient: DIANA CABEZAS [facility]#: [id number] Sex: M : 2000 Age: 20yConstipationS/P appendectomy (3-21).INSTRUCTIONSDrink plenty of fluids. Avoid alcohol and NSAIDS. NSAIDS include aspirin, ibuprofen (Advil) and naproxen(Aleve). Avoid fatty, fried/greasy, lactose-containing (such as milk, cheese and ice cream), salty and spicyfoods. No alcohol. Do not smoke.(FOLLOW UP WITH DR. ARAIZA IN 2 DAYS;TAKE THE REST OF THE MAG CITRATE IN 12 HRS;USE HIGH FIBER DIET, PRUNE JUICE, ETC.;TAKE LAXATIVE PRESCRIBED BY DR. ARAIZA).Warnings: Further evaluation is necessary. It is very important to follow up with a healthcare provider.GENERAL WARNINGS: Return or contact your physician immediately if your condition worsens orchanges unexpectedly, if not improving as expected, or if other problems arise. SPECIFICALLY, return ifyou develop pain in the abdomen, pelvis, testicle or back, fever, vomiting, the inability to keep fluids down,blood in vomitus, blood in diarrhea, fainting or lightheadedness.Your Current Medications: Your current home medications have been reviewed.CONTINUE TAKING THE FOLLOWING MEDICATIONS:Ibuprofen Oral : Tablet 800 mg, 1 tablet, Last: 2 days ago, prn.Follow-up:Return to the emergency department as needed. Follow up with a surgeon in two days even if well. Callfor an appointment. Reason for referral: evaluation and treatment. Summary of care provided to patient viapaper.Understanding of the discharge instructions verbalized by patient. Expected course of illness, dischargeinstructions, activity level, diet, follow- up appointment and risks and benefits of treatment reviewed withpatient and understanding verbalized. Agrees to plan of care. ADDITIONAL INFORMATIONConstipation (Adult)Constipation means that you have bowel movements that are less frequent than usual. Stools often 2 General Instructions [facility] Emergency Department [address] [place] [address] Phone #: ext- [phone] 11/01/2020 08:48 Patient: DIANA CABEZAS Sex: M : 2000 Age: 20ybecome very hard and difficult to pass.Constipation is very common. At some point in life, it affects almost everyone. Since everyone'sbowel habits are different, what is constipation to one person may not be to another. Your healthcareprovider may do tests to diagnose constipation. It depends on what he or she finds when evaluatingyou.Symptoms of constipation include: Abdominal pain Bloating Vomiting Painful bowel movements Itching, swelling, bleeding, or pain around the anusCausesConstipation can have many causes. These include: Diet low in fiber Too much dairy Not drinking enough liquids Lack of exercise or physical activity (especially true for older adults) Changes in lifestyle or daily routine, including , aging, work, and travel Frequent use or misuse of laxatives Ignoring the urge to have a bowel movement or delaying it until later 3 General Instructions [facility] Emergency Department [address] [place] [address] Phone #: ext- [phone] 11/01/2020 08:48 Patient: DIANA CABEZAS Sex: M : 2000 Age: 20y Medicines, such as certain prescription pain medicines, iron supplements, antacids, certain antidepressants, and calcium supplements Diseases like irritable bowel syndrome, bowel obstructions, stroke, diabetes, thyroid disease, Parkinson disease, hemorrhoids, and colon cancerComplicationsPotential complications of constipation can include: Hemorrhoids Rectal bleeding from hemorrhoids or anal fissures (skin tears) Hernias Dependency on laxatives Chronic constipation Fecal impaction, a severe form of constipation in which a large amount of hard stool is in your rectum that you can't pass Bowel obstruction or perforationHome careAll treatment should be done after talking with your healthcare provider. This is especially true if youhave another medic al problems, are taking prescription medicines, or are an older adult. Treatmentmost often involves lifestyle changes. You may also need medicines. Your healthcare provider will tellyou which will work best for you. Follow the advice below to help avoid this problem in the future.Lifestyle changesThese lifestyle changes can help prevent constipation: Diet. Eat a high-fiber diet, with fresh fruit and vegetables, and reduce dairy intake, meats, and processed foods Fluids. It's important to get enough fluids each day. Drink plenty of water when you eat more fiber. If you are on diet that limits the amount of fluid you can have, talk about this with your healthcare provider. Regular exercise. Check with your healthcare provider first.Medicines 4 General Instructions [facility] Emergency Department [address] [place] [address] Phone #: ext- [phone] 11/01/2020 08:48 Patient: DIANA CABEZAS 85 Sex: M : 2000 Age: 20yTake any medicines as directed. Some laxatives are safe to use only every now and then. Others canbe taken on a regular basis. While laxatives don't cause bowel dependence, they are treating thesymptoms. So your constipation may return if you don't make other changes. Talk with yourhealthcare provider or pharmacist if you have questions.Prescription pain medicines can cause constipation. If you are taking this kind of medicine, ask yourhealthcare provider if you should also take a stool softener.Medicines you may take to treat constipation include: Fiber supplements Stool softeners Laxatives Enemas Rectal suppositoriesFollow-up careFollow up with your healthcare provider if symptoms don't get better in the next few days. You mayneed to have more tests or see a specialist.Call [phone] if any of these occur: Trouble breathing Stiff, rigid abdomen that is severely painful to touch Confusion Fainting or loss of consciousness Rapid heart rate Chest painWhen to seek medical adviceCall your healthcare provider right away if any of these occur: Fever of 100.4F (38C) or higher, or as directed by your healthcare provider Failure to resume normal bowel movements 5 General Instructions [facility] Emergency Department [address] [place] [address] Phone #: ext- [phone] 11/01/2020 08:48 Patient: DIANA CABEZAS Sex: M : 2000 Age: 20y Pain in your abdomen or back gets worse Nausea or vomiting Swelling in your abdomen Blood in the stool Black, tarry stool Involuntary weight loss Weakness [id number] [employer]. [address] [place] [address]. All rights reserved. This information is not intended as asubstitute for professional medical care. Always follow your healthcare professional's instructions. You have been given the following additional information: Constipation (Adult)(Electronically signed by Rehana Arciniega M.D. 11/01/2020 12:27) Name Value Range Interpretation Code Description Data Maria Eugenia rce(s) Supporting Document(s) ID Date Data Source [id number] 11/01/2020 08:56:00 AM EST [facility] 1 Clinical Report - Nurses [facility] Emergency Department [address] [place] [address] Phone #: ext- [phone] 11/01/2020 08:48 [id number] Sex[facility] : 2000 Age: 20yTRIAGEArrived by private vehicle. Historian: patient.Triage time: 08:54 11/01/2020. Acuity: LEVEL 3.Chief Complaint: ABDOMINAL PAIN and NAUSEA.08:54 11/01/20. Alert. No acute distress.This started yesterday. Onset. (1500). ( Left abdominal pain worse when lying flat s/p Appendectomy10/25 states sutures have "opened up").SEPSIS SCREEN: SIRS SCREEN NEGATIVE. --09:02 11/01/20 Erendira Rodriguez RN08:54 11/01/20. BP: 152/78. MAP: 102. HR: 68. RR: 16. O2 saturation: 100% on room air. Temp: 98.4 F.Pain level now: 7/10. (cramping). It has been intermittent. Pain level at maximum: 10/10. No radiationnoted. It is worsened by movement and lying flat. --09:02 11/01/20 Erendira Rodriguez RN.Weight: 77.1 kg stated. Height/Length: 69 inches Per Patient. BMI: 25.1. --08:53 11/01/20 Erendira Rodriguez RN.MedicationsIbuprofen Oral (Tablet 800 mg) 1 tablet, as needed, last dose 2 days ago. --08:56 11/01/20 KIA Cristina.AllergiesNo Known Drug Allergy. --08:56 11/01/20 Erendira Rodriguez RN.PROBLEMS:Hemorrhoids. --08:57 11/01/20 Erendira Rodriguez RN.ADDITIONAL SURGERIES:Appendectomy [10/25/2020]. --08:57 11/01/20 Erendira Rodriguez RN.Kvwavpo37:54 11/01/20.PAST MEDICAL HX: Immunizations: up-to-date.SOCIAL HX: Never smoker. No alcohol use or drug use. No recent travel. No known contact with a sickindividual. The patient was offered HIV testing but declined and hepatitis C testing but declined. Thepatient has not traveled outside the [place]Infectious disease exposure: (Negative COVID screen). 2 Clinical Report - Nurses [facility] Emergency Department [address] [place] [address] Phone #: ext- [phone] 11/01/2020 08:48 Patient: DIANA CABEZAS Sex: M : 2000 Age: 20y SELF HARM ASSESSMENT: Self harm assessment was performed. The patient answered "no" to the question(s) "Do you have thoughts of harming or killing yourself?" and "Have you recently had thoughts about harming or killing others?". ABUSE ASSESSMENT: Abuse assessment. The patient had positive responses to the question(s) "Do you feel safe in your home?" (yes). Abuse denied. No report of abuse. NUTRITIONAL RISK ASSESSMENT: The nutritional risk assessment revealed no deficiencies. FUNCTIONAL ASSESSMENT: Functional assessment: no impairments noted. LEARNING NEEDS ASSESSMENT: The learning needs assessment revealed no barriers. FALL RISK ASSESSMENT: Fall risk assessment completed. No risk factors identified. SKIN INTEGRITY ASSESSMENT: Skin integrity risk assessment completed. No skin integrity risk identified. --09:02 11/01/20 Erendira Rodriguez RN. Interventions 08:54 11/01/20. To treatment room. Ambulatory by hospital staff. to room 4. --09:02 11/01/20 Erendira Rodriguez RN.PHYSICAL BINFPYQACS65:02 11/01/20. Ambulatory to room.GENERAL / NEURO / PSYCH: Alert. Oriented X 4. Appears in no acute distress.HEENT: Mucous membranes are pink.RESPIRATORY: Respirations not labored. Breath sounds within normal limits.CVS: Capillary refill less than 2 seconds.GI / : Single abdominal scar present in the right lower quadrant (healing, open proximal edge ofincision). Compatible with prior appendectomy. Abdomen soft. Abdominal tenderness in the left side ofthe abdomen. Bowel sounds within normal limits.SKIN: Skin is warm and dry. --09:05 11/01/20 Erendira Rodriguez RN.NURSING PROGRESS NOTES08:54 11/01/20. Patient gowned. Head of bed elevated. Two patient identifiers checked. Call lightplaced in reach. Side rails up. Bed placed in lowest position. Brakes of bed on. Patient ready forevaluation- ED physician notified. --09:02 11/01/20 Erendira Rodriguez RN Patient ID band checked for patient name and birthdate: patient confirmed. Instructions provided to collect clean catch urine and patient verbalized understanding. Clean catch urine collected; sample sent to lab for urinalysis. Specimen labeled in the presence of the patient. --:11/01/20 Griselda Austin R.N. Patient walked to radiology with [employer]. --:11/01/20 Griselda Austin R.N. 3 Clinical Report - Nurses [facility] Emergency Department [address] [place] [address] Phone #: ext- [phone] 11/01/2020 08:48 Patient: DIANA CABEZAS MRN: [id number] [id number] Sex: M : 2000 Age: 20y 09:23 11/01/20. Patient walked back from radiology with tech. --:11/01/20 Griselda Austin R.N. 09:11/01/2020 Site #1 started via IV in the right antecubital space with an 18g angiocath, with aseptic technique and good blood return; one attempt. Saline lock flushed with 10 mL saline. --:11/01/20 Griselda Austin R.N. 09:27 11/01/2020 Started bag #1 1000 mL IV Fluids IV NS; bolus of 1000 mL over 1 hour(s) via site #1 via IV pump. Allergies verified and confirmed 5 rights. IV patency established. IV site checked: no pain, redness, or swelling. IV flushed thoroughly pre- and post-medication administration. Information reviewed with patient including reason for taking this medication, signs of allergic reaction and precautions. Verbalizes understanding. --09:27 11/01/20 Griselda Austin R.N. 09:28 11/01/2020 Reglan (Metoclopramide HCl) IVP 10 mg given over 2 minute(s) via site #1. Allergies verified and confirmed 5 rights. IV patency established. IV site checked: no pain, redness, or swelling. IV flushed thoroughly pre- and post-medication administration. IVP given by RN. Information reviewed with patient including reason for taking this medication, signs of allergic reaction and precautions. Verbalizes understanding. --09:28 11/01/20 Griselda Austin R.N. Patient returned from radiology by wheelchair with tech. --09:44 11/01/20 Griselda Austin R.N. Charted On Wrong Patient --09:47 11/01/20 Griselda Austin R.N. Reassurance given to the patient. --10:22 11/01/20 Melvin Bustamante R.N. 11:16 11/01/2020 Magnesium Citrate PO Oral Suspension 300 mL given. --11:16 11/01/20 Melvin Bustamante R.N. 11:17 11/01/2020 IV Fluids IV NS via IV site #1 Discontinued: bag #1 infused upon discharge. Total amount infused: 1000 mL. --11:17 11/01/20 Melvin Bustamante R.N.DISPOSITION / DISCHARGE No learning barriers present. Discharge instructions provided and reviewed with the patient. Patient verbalized understanding. Written instructions provided in [place]. The patient was discharged by the physician. He was discharged home. He left ambulatory and via private vehicle. Patient driving. --11:17 11/01/20 Melvin Bustamante R.N. 11:18 11/01/20. BP: 127/75. HR: 60. RR: 18. O2 saturation: 100%. Temp: 98.4 F. Pain level now 09/05. --11:19 11/01/20 [place] body team memberRoman Pope ER Tech1 Departure time: 11:23 11/01/2020. --11:23 11/01/20 Melvin Bustamante R.N. 4 Clinical Report - Nurses [facility] Emergency Department [address] [place] [address] Phone #: ext- [phone] 11/01/2020 08:48 Patient: DIANA CABEZAS Sex: M : 2000 Age: 20yLocked/Released at 11/01/2020 11:23 by Melvin Bustamante R.N. Name Value Range Interpretation Code Description Data Maria Eugenia rce(s) Supporting Document(s) ID Date Data Source [id number] 11/01/2020 08:56:00 AM EST [facility] 1 Clinical Report - Physicians/Mid Levels [facility] Emergency Department [address] [place] [address] Phone #: ext- [phone] 11/01/2020 08:48 Patient: DIANA CABEZAS Sex: M : 2000 Age: 20y Time Seen: 08:59 11/01/2020; initial patient contact. Arrived- By private vehicle. Historian- patient. Disposition decision: 11:17 11/01/2020.HISTORY OF PRESENT ILLNESS Chief Complaint: ABDOMINAL PAIN. This started yesterday and is still present. It was gradual in onset and has been constant. It is described as "pain" and sharp and it is described as located in the left lower quadrant. At its maximum, severity described as severe and 7 / 10. When seen in the E.D., severity described as severe and 7 / 10. Modifying factors- worsened by movement. Relieved by rest. The patient has had nausea. No loss of appetite, vomiting or diarrhea. No recent travel. Similar symptoms previously. None. Recent medical care: The patient was seen recently at this facility. ( had appendectomy on 3-1-21, Dr. Araiza).REVIEW OF SYSTEMSThe patient has had mild co nstipation but not had weight loss. No black stools, hematemesis, difficultywith urination, pain with urination or urinary frequency. No bloody stools, fever, headache, sore throat orblurred vision. No chest pain, difficulty breathing, cough, joint pain or skin rash. No chills or back pain.Last bowel movement: yesterday. All other systems reviewed and are negative.PAST HISTORYSee nurses notes. Problems: Constipation. Allergic Rhinitis. TMJ Syndrome. Hemorrhoids. Additional Surgeries: Appendectomy [10/25/2020]. Medications: Ibuprofen Oral (Tablet 800 mg) 1 tablet, as needed, last dose 2 days ago. Allergies: No Known Drug Allergy.SOCIAL HISTORY 2 Clinical Report - Physicians/Mid Levels [facility] Emergency Department [address] [place] [address] Phone #: ext- [phone] 11/01/2020 08:48 Patient: DIANA CABEZAS Sex: M : 2000 Age: 20y Never smoker. No alcohol use or drug use.ADDITIONAL NOTESThe nursing notes have been reviewed with agreement regarding the chief complaint, HPI, ROS, PMH andpatient medications and allergies.PHYSICAL EXAMVital Signs: 11/01/2020 08:54 BP: lying 152/78. MAP: 102. HR: 68. RR: 16. O2 saturation: 100% on roomair. Temp: 98.4 F. Pain level now: 710. Have been reviewed. Oxygen saturation normal.Appearance: Alert. Oriented X3. Anxious. Appears to be in pain. Patient in mild distress. Distressappears due to pain.Eyes: Pupils equal, round and reactive to light. Eyes normal inspection.ENT: Nose normal. Pharynx normal.Neck: Normal inspection. Neck supple.CVS: Normal heart rate and rhythm. Heart sounds normal. Pulses normal.Respiratory: No respiratory distress. Painless inspiration. Breath sounds normal. Chest nontender.Abdomen: Soft. Mild tenderness in the left lower quadrant and lower abdomen. No guarding or reboundtenderness. Bowel sounds normal. No organomegaly. No mass. Femoral pulses equal. Single scarpresent in the right lower quadrant (dry, no infection). Compatible with prior appendectomy.Back: Normal inspection. No CVA tenderness.Skin: Skin warm and dry. Normal skin color. No rash. Normal skin turgor.Extremities: Extremities exhibit normal ROM. No lower extremity edema.Neuro: Oriented X 3. No motor deficit. No sensory deficit.LABS, X-RAYS, AND EKGKUB: (mild-mod stool in descending colon rectosigmoid). Views: AP. Technique: good. The X-rayswere interpreted by the radiologist. Interpretation time: 09:30 11/01/2020.Laboratory Tests: Laboratory tests have been ordered, with results reviewed and considered in themedical decision making process. CBC w Diff: (MAURICIO: 11/01/2020 09:39) ( MsgRcvd 11/01/2020 10:07) Final results Test Result Flag Units (Reference) CBC W/AUTOMATED DIFF COMPLETE BLOOD COUNT WBC 9.0 10/uL (4.2 - 11.0) RBC 5.15 10/uL (4.50 - 6.30) HEMOGLOBIN 14.7 g/dL (14.0 - 16.0) HEMATOCRIT 41.8 % (41.0 - 51.0) MCV 81.2 fL (80.0 - 94.0) MCH 28.5 pg (27.0 - 34.0) MCHC 35.2 g/dL (31.0 - 36.0) RDW 11.8 % (11.5 - 14.8) PLATELETS 223 10/uL (150 - 450) MPV 9.7 fL (7.4 - 10.4) NEUT 60.8 % (37.0 - 80.0) LYMPH 23.7 L % (25.0 - 40.0) MONO 11.2 H % (3.0 - 8.0) EOS 3.3 % (0.0 - 7.0) BASO 0.4 % (0.0 - 2.0) 3 Clinical Report - Physicians/Mid Levels [facility] Emergency Department [address] [place] [address] Phone #: ext- [phone] 11/01/2020 08:48 Patient: DIANA CABEZAS Sex: M : 2000 Age: 20y %IG 0.6 H % (0.0 - 0.0) %NRBC 0.0 % (0.0 - 0.0) #NEUT 5.45 10/uL (2.00 - 6.90) #LYMPH 2.12 10/uL (0.60 - 3.40) #MONO 1.00 H 10/uL (0.00 - 0.90) #EOS 0.30 10/uL (0.00 - 0.70) #BASO 0.04 10/uL (0.00 - 0.20) #IG 0.05 10/uL (0.00 - 0.10) #NRBC 0.00 10/uL (0.00 - 0.00) MANUAL DIFF NOT INDICATED RBC MORPH NOT INDICATEDCMP: (MAURICIO: 11/01/2020 09:39) ( MsgRcvd 11/01/2020 10:18) Final results Test Result Flag Units (Reference) COMPREHENSIVE METABOLIC PANEL COMPREHENSIVE METABOLIC PANEL SODIUM 139 mEq/L (134 - 153) POTASSIUM 3.8 mEq/L (3.6 - 5.0) CHLORIDE 105 mEq/L (98 - 107) CO2 25 MEQ/L (22 - 30) GLUCOSE 93 MG/DL (70 - 99) BUN 13 MG/DL (7 - 21) CREATININE 0.8 MG/DL (0.7 - 1.5) BUN/CREAT 16 (8 - 27) TOTAL PROTEIN 6.9 G/DL (6.3 - 8.2) ALBUMIN 4.4 G/DL (3.9 - 5.0) GLOBULIN 2.5 GM/DL (2.4 - 3.2) A/G RATIO 1.8 (0.8 - 2.0) CALCIUM 9.2 MG/DL (8.4 - 10.2) TOTAL BILI <0.7 MG/DL (0.2 - 1.3) ALKALINE PHOS 118 U/L (38 - 126) SGOT/AST 26 U/L (5 - 40) SGPT/ALT 63 H U/L (7 - 56) ANION GAP 9.0 mmol/L (8.0 - 16.0) AGE 20 yrs NON-AA GFR >60 mL/min AFR AMER GFR >60 mL/min Male GFR Interprentation 20-49 yrs >60 mL/min Oaozby40-93 yrs >56 mL/min Normal 60-69 yrs >49 mL/min Normal 70-79yrs>42 mL/min Normal 80 and above >35 mL/min Normal Female GFRInterpretation 20-39 yrs >60 mL/min Normal 40-49 yrs >58 mL/minNormal 50-59 yrs >51 mL/min Normal 60-69 yrs >45 mL/min Pvgjck11-77 yrs >39 mL/min Normal 80 and above >32 mL/min NormalLipase: (MAURICIO: 11/01/2020 09:39) ( [facility] 11/01/[place] 10:12) Final results Test Result Flag Units (Reference) LIPASE 27 U/L (13 - 60)Urinalysis: (MAURICIO: 11/01/2020 09:15) ( [facility] [place] 11/01/2020 09:36) Final results Test Result Flag Units (Reference) URINALYSIS URINALYSIS SOURCE R COLOR yellow (NORMAL: [place] CLARITY clear (NORMAL: Clear SPEC GRAVITY 1.010 (1.001 - 1.030 4 Clinical Report - Physicians/Mid Levels [facility] Emergency Department [address] [place] [address] Phone #: ext- [phone] 11/01/2020 08:48 Patient: DIANA CABEZAS [facility]#: [id number] Sex: M : 2000 Age: 20y pH 6 (5 - 9) GLUCOSE NORM (NORMAL: Negat BILIRUBIN NEG (NORMAL: Negat KETONE NEG (NORMAL: Negat PROTEIN NEG (NORMAL: Negat NITRITE NEG (NORMAL: Negat BLOOD NEG (NORMAL: Negat LEUK EST NEG (NORMAL: Negat UROBILINOGEN NOR (less than 1.0 MICROSCOPIC Not Indicate Lactic Acid: (MAURICIO: 11/01/2020 09:39) ( MsgRcvd 11/01/2020 09:55) Final results Test Result Flag Units (Reference) LACTIC ACID 1.4 MMOL/L (0.2 - 2.2).PROGRESS AND PROCEDURESCourse of Care: 11:16 11/01/20. workup all in and reviewed and nml; KUB shows constipation; pt haslaxatives at home, will give Mg Citrate here; advised to f/u w Dr. Araiza in 2 days; pt agree s. Patient counseled in person regarding the patient's stable condition, test results, diagnosis and need for follow-up. Patient agrees with plan of care. Disposition: Condition: good and stable. Discharge decision based on the following: patient's condition is stable; patient's condition is improved; patient is ambulatory; patient is active; patient drinking fluids; patient eating; patient's pain is controlled; patient's exam is improved; no abnormal test results; improving condition on multiple repeat evaluations; social support is good; transportation is available; follow-up is available; clinical impression is consistent with outpatient treatment.CLINICAL IMPRESSION Constipation S/P appendectomy (10-25-20).INSTRUCTIONS Drink plenty of fluids. Avoid alcohol and NSAIDS. NSAIDS include aspirin, ibuprofen (Advil) and naproxen (Aleve). Avoid fatty, fried/greasy, lactose-containing (such as milk, cheese and ice cream), salty and spicy foods. No alcohol. Do not smoke. (FOLLOW UP WITH DR. ARAIZA IN 2 DAYS; TAKE THE REST OF THE MAG CITRATE IN 12 HRS; USE HIGH FIBER DIET, PRUNE JUICE, ETC.; TAKE LAXATIVE PRESCRIBED BY DR. ARAIZA). 5 Clinical Report - Physicians/Mid Levels [facility] Emergency Department [address] [place] [address] Phone #: ext- [phone] 11/01/2020 08:48 Patient: DIANA CABEZAS Sex: M : 2000 Age: 20y Warnings: Further evaluation is necessary. It is very important to follow up with a healthcare provider. GENERAL WARNINGS: Return or contact your physician immediately if your condition worsens or changes unexpectedly, if not improving as expected, or if other problems arise. SPECIFICALLY, return if you develop pain in the abdomen, pelvis, testicle or back, fever, vomiting, the inability to keep fluids down, blood in vomitus, blood in diarrhea, fainting or lightheadedness. Your Current Medications: Your current home medications have been reviewed. CONTINUE TAKING THE FOLLOWING MEDICATIONS: Ibuprofen Oral : Tablet 800 mg, 1 tablet, Last: 2 days ago, prn. Follow-up: Return to the emergency department as needed. Follow up with a surgeon in two days even if well. Call for an appointment. Reason for referral: evaluation and treatment. Summary of care provided to patient via paper. Understanding of the discharge instructions verbalized by patient. Expected course of illness, discharge instructions, activity level, diet, follow-up appointment and risks and benefits of treatment reviewed with patient and understanding verbalized. Agrees to plan of care.(Electronically signed by Rehana Arciniega M.D. 11/01/2020 12:27) Name Value Range Interpretation Code Description Data Maria Eugenia rce(s) Supporting Document(s) ID Date Data Source [id number] 11/01/2020 10:17:00 AM EST [facility] Name Value Range Interpretation Code Description Data Maria Eugenia rce(s) Supporting Document(s) COMPREHENSIVE METABOLIC PANEL [facility] COMPREHENSIVE METABOLIC PANEL Sodium [Moles/volume] in Serum or Plasma 139 mEq/L 134 - 153 [facility] Potassium [Moles/volume] in Serum or Plasma 3.8 mEq/L 3.6 - 5.0 [facility] Chloride [Moles/volume] in Serum or Plasma 105 mEq/L 98 - 107 [facility] Carbon dioxide, total [Moles/volume] in Serum or Plasma 25 MEQ/L 22 - 30 [facility] Glucose [Mass/volume] in Serum or Plasma 93 MG/DL 70 - 99 [facility] BUN 13 MG/DL 7 - 21 [facility] Creatinine [Mass/volume] in Serum or Plasma 0.8 MG/DL 0.7 - 1.5 [facility] BUN/CREAT 16 8 - 27 [facility] Protein [Mass/volume] in Serum or Plasma 6.9 G/DL 6.3 - 8.2 [facility] Albumin [Mass/volume] in Serum or Plasma 4.4 G/DL 3.9 - 5.0 [facility] Globulin [Mass/volume] in Serum by calculation 2.5 GM/DL 2.4 - 3.2 [facility] A/G RATIO 1.8 0.8 - 2.0 [facility] Calcium [Mass/volume] in Serum or Plasma 9.2 MG/DL 8.4 - 10.2 [facility] Bilirubin.total [Mass/volume] in Serum or Plasma <0.7 MG/DL 0.2 - 1.3 [facility] Alkaline phosphatase [Enzymatic activity/volume] in Serum or Plasma 118 U/L 38 - 126 [facility] Aspartate aminotransferase [Enzymatic activity/volume] in Serum or Plasma 26 U/L 5 - 40 [facility] Alanine aminotransferase [Enzymatic activity/volume] in Seru m or Plasma 63 U/L 7 - 56 H [facility] Anion gap 3 in Serum or Plasma 9.0 mmol/L 8.0 - 16.0 [facility] AGE 20 yrs [facility] al NON-AA GFR >60 mL/min [facility] ital AFR AMER GFR >60 mL/min [facility] Male GFR In terprentation 20-49 yrs >60 mL/min Normal 50-59 yrs >56 mL/min Normal 60-69 yrs >49 mL/min Normal 70-79yrs >42 mL/min Normal 80 and above >35 mL/min Normal Female GFR Interpretation 20-39 yrs >60 mL/min Normal 40-49 yrs >58 mL/min Normal 50-59 yrs >51 mL/min Normal 60-69 yrs >45 mL/min Normal 70-79 yrs >39 mL/min Normal 80 and above >32 mL/min Normal ID Date Data Source [id number] 11/01/2020 10:12:00 AM [facility] Name Value Range Interpretation Code Description Data Maria Eugenia rce(s) Supporting Document(s) Lipase [Enzymatic activity/volume] in Serum or Plasma 27 U/L 13 - 60 [facility] ID Date Data Source [id number] 11/01/2020 10:04:00 AM [facility] Name Value Range Interpretation Code Description Data Maria Eugenia rce(s) Supporting Document(s) CBC W/AUTOMATED DIFF [facility] COMPLETE BLOOD COUNT Leukocytes [#/volume] in Blood by Automated count 9.0 10^3/uL 4.2 - 1 1.0 [facility] Erythrocytes [#/volume] in Blood by Automated count 5.15 10^6/uL 4. 50 - 6.30 [facility] Hemoglobin [Mass/volume] in Blood 14.7 g/dL 14.0 - 16.0 [facility] Hematocrit [Volume Fraction] of Blood by Automated count 41.8 % 4 1.0 - 51.0 [facility] Erythrocyte mean corpuscular volume [Entitic volume] by Auto mated count 81.2 fL 80.0 - 94.0 [facility] Erythrocyte mean corpuscular hemoglobin [Entitic mass] by Automated count 28.5 pg 27.0 - 34.0 [facility] Erythrocyte mean corpuscular hemoglobin concentration [Mass/volume] by Automated count 35.2 g/dL 31.0 - 36.0 [facility] Erythrocyte distribution width [Ratio] by Automated count 11.8 % 11.5 - 14.8 [facility] Platelets [#/volume] in Blood by Automated count 223 10^3/uL 150 - 45 0 [facility] Platelet mean volume [Entitic volume] in Blood by Automated count 9.7 fL 7.4 - 10.4 [facility] Neutrophils/100 leukocytes in Blood by Automated count 60.8 % 37. 0 - 80.0 [facility] Lymphocytes/100 leukocytes in Blood by Manual count 23.7 % 25.0 - 40.0 L [facility] Monocytes/100 leukocytes in Blood by Automated count 11.2 % 3.0 - 8.0 H [facility] Eosinophils/100 leukocytes in Blood by Automated count 3.3 % 0.0 - 7.0 [facility] Basophils/100 leukocytes in Blood by Automated count 0.4 % 0.0 - 2.0 [facility] %IG 0.6 % 0.0 - 0.0 H [facility] al %NRBC 0.0 % 0.0 - 0.0 [facility] al Neutrophils [#/volume] in Blood by Automated count 5.45 10^3/uL 2.00 - 6.90 [facility] Lymphocytes [#/volume] in Blood by Automated count 2.12 10^3/uL 0.60 - 3.40 [facility] Monocytes [#/volume] in Blood by Automated count 1.00 10^3/uL 0.00 - 0.90 H [facility] Eosinophils [#/volume] in Blood by Automated count 0.30 10^3/uL 0.00 - 0.70 [facility] Basophils [#/volume] in Blood by Automated count 0.04 10^3/uL 0.00 - 0.20 [facility] #IG 0.05 10^3/uL 0.00 - 0.10 [facility] ospital #NRBC 0.00 10^3/uL 0.00 - 0.00 [facility] ospital MANUAL DIFF NOT INDICATED [facility] RBC MORPH NOT INDICATED [facility] ID Date Data Source [id number] 11/01/2020 09:55:00 AM EST [facility] Name Value Range Interpretation Code Description Data Maria Eugenia rce(s) Supporting Document(s) Lactate [Moles/volume] in Serum or Plasma 1.4 MMOL/L 0.2 - 2.2 [facility] ID Date Data Source [id number] 11/01/2020 09:35:00 AM [facility] Name Value Range Interpretation Code Description Data Maria Eugenia rce(s) Supporting Document(s) [facility] yellow NORMAL: Yellow [facility] CLARITY clear NORMAL: Clear [facility] Specific gravity of Urine by Test strip 1.010 1.001 - 1.030 [facility] pH 6 5 - 9 [facility] Glucose [Mass/volume] in Urine by Test strip NORM NORMAL: Negat [facility] Bilirubin.total [Presence] in Urine by Test strip NEG NORMAL: Negative [facility] Ketones [Presence] in Urine by Test strip NEG NORMAL: Negative [facility] Protein [Mass/volume] in Urine by Test strip NEG NORMAL: Negat [facility] Nitrite [Presence] in Urine by Test strip NEG NORMAL: Negative [facility] BLOOD NEG NORMAL: Negative [facility] Leukocyte esterase [Presence] in Urine by Test strip NEG VIVEK L: Negative [facility] Urobilinogen [Mass/volume] in Urine by Test strip NOR less florentin n 1.0 mg/dL [facility] MICROSCOPIC Not Indicate [facility] ID Date Data Source [id number] 10/25/2020 01:41:00 PM [facility] [address] [place] [address] PHONE: [phone] FAX: [phone] Name .................. : DAOFRANCO Ruggiero Acct Number.................. : [id number] ROOM. ................. : TR-06 Number ................... : [id number] Stay type ............. : E/R Discharge Date......... ... : Admit Date ......... : 10/25/20 Admit Phys .................... : DEMIAN PLUMMER Date of ....... : 2000 Family Phys ................... : UNKNOWN KURT Phone .................. : [phone] Age ................................ : 20 Film# .................. .:[id number] Sex ................................. : M Unsigned transcriptions are preliminary reports and do not represent a medical or legal document CT ABD & PELVIS W/ IV ONLY [id number] COMPLETE:10/25/20 12:53 5315 Reason(s): epigastric and RLQ pain x [address] ABDOMEN & PELVIS WITH IV CONTRAST, 10/25/20: INDICATION: Epigastric and right lower quadrant pain for 24 hours. Previous 09/05/20. FINDINGS: Exam was performed following the administration of 75 cc of Isovue 370. The tip of the appendix is dilated measuring 0.9 cm. The wall of the tip of the appendix is thickened. There is no periappendiceal stranding. The findings suggest minimal appendicitis. The liver, spleen, and pancreas are normal in size and density. No masses are seen. Kidneys demonstrate no evidence for masses or obstruction. No lymphadenopathy is seen. No ascites is noted. The spleen measures 12.7 cm, which is at the upper limits of normal in size. IMPRESSION: Minimally dilated tip of the appendix demonstrating a thickened wall, suggesting minimal appendicitis. The spleen is at upper limits of normal in size. While performing the above CT examination, radiation dose reduction was accomplished utilizing automated exposure control, adjusting of the mA and kV based on the patient's body size and/or the use of imperative reconstructive techniques. CT dose 563.7 mGycm. Contrast agent in mL: 75 mL Isovue 370 Page 1 of 2 [facility] [address] [place] [address] PHONE: [phone] FAX: [phone] Name .................. : PETERSON Ruggiero Acct Number.................. : [id number] ROOM. ................. : TR-06 MR Number ................... : [id number] Stay type ............. : E/R Discharge Date......... ... : Admit Date ......... : 10/25/20 Admit Phys .................... : DEMIAN PLUMMER Date of ....... : 2000 Family Phys ................... : UNKNOWN KURT Phone .................. : [phone] Age ................................ : 20 Film# .................. .:[id number] Sex ................................. : M Unsigned transcriptions are preliminary reports and do not represent a medical or legal document CT ABD & PELVIS W/ IV ONLY [id number] COMPLETE:10/25/20 12:53 5315 Reason(s): epigastric and RLQ pain x 24 hrs Method of administration: Intravenous Electronically Reviewed and Signed By Krystian Patel MD , 10/27/20 08:57, MRA Transcribe Initials: SSR, Transcribe Date: 10/25/20 13:41, Dictation Date: Copy for: EMERGENCY DEPT via modem Copy for: 710 MED REC DISCHARGED Page 2 of 2 Name Value Range Interpretation Code Description Data Maria Eugenia rce(s) Supporting Document(s) ID Date Data Source [id number] 10/25/2020 11:18:00 AM EST [facility] 1 OrderSheet [facility] Emergency Department [address] [place] [address] Phone #: ext- [phone] 10/25/2020 11:15 Patient: DIANA CABEZAS Sex: M : 2000 Age: 20yWEIGHT:77.1 kg (S) HEIGHT:69 inches (S) BMI:25.1ALLERGIES: No Known Drug AllergyCHIEF COMPLAINT: abdominal painDIAGNOSIS: AppendicitisLAB ORDERSOrder Description Priority Entered Acknowledged InitialedCBC w Diff STAT 11:38 10/25/2020 11:59 Demian Bustamante Riccardo John R.N. M.D.;CMP STAT 11:38 10/25/2020 11:59 Demian Bustamante Riccardo John R.N. M.D.;Lipase STAT 11:38 10/25/2020 11:59 Demian Bustamante Riccardo John R.N. M.D.;Urinalysis (Clean STAT 11:38 10/25/2020 11:40 Myron,Catch) Rehana Arciniega RN, M.D.;Lactic Acid STAT 11:38 10/25/2020 11:59 Demian Bustamante Riccardo John R.N. M.D.;COVID-19 CAH (Not STAT 14:09 10/25/2020 14:19 Robby,Symptomatic as Rehana Arciniega R.N.Defined by CDC) Alex;(10/25/2020) (NotFirst Test) (NotHospitalized) (Not) (NotResident inCongregate CareSetting) (NotEmployed inHealthcare Setting)DIAGNOSTIC STUDY ORDERSOrder Description Priority Entered Acknowledged InitialedCT Abd PEL W/ IV STAT 12:53 10/25/2020 13:32 Robby,Contrast Only Turrin, Rehana Melvin R.N. 2 OrderSheet [facility] Emergency Department [address] [place] [address] Phone #: ext- [phone] 10/25/2020 11:15 Patient: DIANA CABEZAS Sex: M : 2000 Age: 20y(Oxygen?(No)) M.D. ;(IV?(Yes)) Reason for Study: epigastric and RLQ pain x 24 hrsMEDICATION/IV/DRIP/FLUID ORDERSOrder Description Priority Entered Acknowledged InitialedNS IV 1000 mL 11:38 10/25/2020 11:59 Robby,Bolus: : Bolus 1000 Turrin, Rehana Melvin R.N.mL (X1) M.D.;Protonix IV Push 40 11:38 10/25/2020 12:00 Robby,mg (in 10 mL NS, Turrin, Rehana Melvin R.N.administer over at M.D.;least 2 minutes,NOW x1)Zofran 4 mg IVP X 1 11:38 10/25/2020 12:00 Robby,dose: 4 mg (NOW Turrin, Rehana Melvin R.N.x1) M.D.;NS IV 1000 mL 12:53 10/25/2020 12:56 Robby,Bolus: : Bolus 1000 Turrin, Rehana Melvin R.N.mL (X1) M.D.;Pepcid IVPB 20 12:53 10/25/2020 12:59 Robbymg/50mL (NOW x1, Turrin, Rehana Melvin R.N.Infuse over 30 M.D.;minutes.)Zosyn- IVPB 4.5 gm 14:09 10/25/2020 14:24 Robby,(in 50 mL D5W, X1) Rehana Arciniega R.N., M.D.;GENERAL ORDERSOrder Description Priority Entered Acknowledged InitialedNPO 11:38 10/25/2020 11:39 Demian Bustamante Riccardo John R.N. M.D.;Saline Lock 11:38 10/25/2020 11:39 Demian Bustamante Riccardo John R.N. M.D.;Consult - General 14:15 10/25/2020 14:19 Robby,Surgery Rehana Arciniega R.N., M.D.;[Electronically signed by Melvin Bustamante R.N. (15:28 10/25/2020)][Electronically signed by Rehana Arciniega M.D. (15:48 10/25/2020)][Electronically locked by Melvin Bustamante R.N. (15:28 10/25/2020)] 3 OrderSheet [facility] Emergency Department [address] [place] [address] Phone #: ext- [phone] 10/25/2020 11:15 Patient: DIANA CABEZAS Sex: M : 2000 Age: 20y Name Value Range Interpretation Code Description Data Maria Eugenia rce(s) Supporting Document(s) ID Date Data Source [id number] 10/25/2020 11:18:00 AM EST [facility] 1 Medication Reconciliation Report [facility] Emergency Department [address] [place] [address] Phone #: ext- [phone] 10/25/2020 11:15 Patient: DIANA CABEZAS Sex: M : 2000 Age: 20yWeight: 77.1 kgHeight/Length: 69 in.BMI: 25.1ALLERGIES: No Known Drug AllergyThe patient's Home Medications are listed below:NONE.The source(s) of the original Home Medication information:Not obtained.The following Medications were given to the patient in the Emergency Department:NS [IV] IV Fluids bolus 0, then 1000 mL/hr, administered: 11:59 1PROTONIX [IVP] IVP 40 mg, administered: 12:00 10/25/2020Zofran [IVP] IVP 4 mg, administered: 12:00 10/25/2020NS [IV] IV Fluids bolus 0, then 1000 mL/hr, administered: 12:56 1Pepcid [IVPB] IVPB bolus 0, then 100 mL/hr, administered: 12:59 10/25/2020Zosyn [IVPB] IVPB bolus 0, then 4.5 gm 100 mL/hr, administered: 14:24 10/25/2020The following Medications were prescribed to the patient:None. Name Value Range Interpretation Code Description Data Maria Eugenia rce(s) Supporting Document(s) ID Date Data Source [id number] 10/25/2020 11:18:00 AM EST [facility] 1 Medication Administration Record [facility] Emergency Department [address] [place] [address] Phone #: ext- [phone] 10/25/2020 11:15 Patient: DIANA CABEZAS Sex: M : 2000 Age: 20yWeight: 77.1 kgHeight/Length: 69 inBMI: 25.1ALLERGIES: No Known Drug Allergy Date/Time Medication Administered Medication OrderedStart NS [IV] NS IV 1000 mL Bolus: : Bolus [id number] 10/25/2020 Dose: IV Fluids mL (X1)Melvin Bustamante R.N. Rate: 1000 mL/hr over 60 minute(s)---- Dispensed: 1000 mL bagStop Site: #1 left mburnof48:52 10/25/2020Melvin Bustamante R.N.Given PROTONIX [IVP] (PANTOPRAZOLE Protonix IV Push 40 mg (in 10 mL12:00 10/25/2020 SODIUM) NS, administer over at least 2GroMelvin de león R.N. Dose: 40 mg IVP minutes, NOW x1) Site: #1 left forearmGiven ZOFRAN [IVP] (ONDANSETRON HCL) Zofran 4 mg IVP X 1 dose: 4 mg12:00 10/25/2020 Dose: 4 mg IVP (NOW x1)Melvin Bustamante R.N. Site: #1 left forearmStart NS [IV] NS IV 1000 mL Bolus: : Bolus [id number] 10/25/2020 Dose: IV Fluids mL (X1)Melvin Bustamante R.N. Rate: 1000 mL/hr over 60 minute(s)---- Dispensed: 1000 mL bagStop Site: #1 left atvqopy10:12 10/25/2020Melvin Bustamante R.N.Start PEPCID [IVPB] Pepcid IVPB 20 mg/50mL (NOW12:59 10/25/2020 Dose: IVPB x1, Infuse over 30 minutes.)Melvin Bustamante R.N. Rate: 100 mL/hr over 30 minute(s)---- Dispensed: 50 mL bagStop Site: #1 left lmsesof61:02 10/25/2020Melvin Bustamante R.N.Start ZOSYN [IVPB] (PI PERACILLIN Zosyn- IVPB 4.5 gm (in 50 mL14:24 10/25/2020 SOD-TAZOBACTAM SO) D5W, X1)Melvin Bustamante R.N. Dose: 4.5 gm IVPB---- Rate: 100 mL/hr over 30 minute(s)Stop Dispensed: 50 mL bag15:27 10/25/2020 Site: #1 left forearmMelvin Bustamante R.N. Name Value Range Interpretation Code Description Data [facility](s) Supporting Document(s) ID Date Data Source [id number] 10/25/2020 11:18:00 AM [facility] 1 General Instructions [facility] Emergency Department [address] [place] [address] Phone #: ext- [phone] 10/25/2020 11:15 Patient: DIANA CABEZAS Sex: M : 2000 Age: 20yAcute appendicitis with localized peritonitis.(Electronically signed by Rehana Arciniega M.D. 10/25/2020 15:48) Name Value Range Interpretation Code Description Data [facility](s) Supporting Document(s) ID Date Data Source [id number] 10/25/2020 11:18:00 AM [facility] 1 Clinical Report - Nurses [facility] Emergency Department [address] [place] [address] Phone #: ext- [phone] 10/25/2020 11:15 Patient: DIANA CABEZAS Sex: M : 2000 Age: 20yTRIAGEArrived by private vehicle. Historian: patient.Acuity: LEVEL 3.Chief Complaint: ABDOMINAL PAIN and BLOOD IN STOOLS.Alert. No acute distress.This started yesterday. ( Pt says yesterday he began having sharp upper abdominal pain to both theRUQ and LUQ after going to [employer] restaurant. He also lost his sense of taste and appetite after eatingthere. Additionally, he has hemorrhoids that have been bleeding every time he has a BM for 1 week. Hedenies any constipation or diarrhea.).Treatment INVENTORY CHECKER:None.SEPSIS SCREEN: SIRS SCREEN NEGATIVE. SEPSIS SCREEN NEGATIVE. No suspected or confirmedsigns of infection present.ELISABETH COMA SCORE: 15- eyes open- spontaneous (4); best verbal response- oriented (5); bestmotor response- obeys commands (6). --11:28 10/25/20 Veena Askew R.N.11:18 10/25/20. BP: 152/83. MAP: 106. HR: 62. RR: 18. O2 saturation: 100%. Temp: 98.6 F. Pain levelnow: 06/05. --11:28 10/25/20 Veena Askew R.N.Weight: 77.1 kg stated. Height/Length: 69 inches Per Patient. BMI: 25.1. --11:24 10/25/20 Veena Askew R.N.MedicationsNone. --11:22 10/25/20 Veena Askew R.N.AllergiesNo Known Drug Allergy. --11:22 10/25/20 Veena Askew R.N.HistoryPAST MEDICAL HX: Immunizations: up-to-date.SOCIAL HX: Never smoker. No alcohol use or drug use. No recent travel. No known contact with a sickindividual. The patient was offered HIV testing but declined and hepatitis C testing but declined. Thepatient has not traveled outside the [place]Infectious disease exposure: The patient was not exposed to C-diff, MRSA, VRE, CRE or Coronavirus. 2 Clinical Report - Nurses [facility] Emergency Department [address] [place] [address] Phone #: ext- [phone] 10/25/2020 11:15 Patient: DIANA CABEZAS Sex: M : 2000 Age: 20y SELF HARM ASSESSMENT: Self harm assessment was performed. The patient answered "no" to the question(s) "Have you recently felt down, depressed, or hopeless?", "Do you have thoughts of harming or killing yourself?", "Do you have a plan for harming or killing yourself?", "Have you recently had thoughts about harming or killing others?", "Do you have any dangerous items in your possession?", "Have you noticed less interest or pleasure in doing things?", "Are you here because you tried to hurt yourself?" and "Have you ever tried to hurt yourself before today?". ABUSE ASSESSMENT: No report of abuse. NUTRITIONAL RISK ASSESSMENT: The nutritional risk assessment revealed no deficiencies. FUNCTIONAL ASSESSMENT: Functional assessment: no impairments noted. LEARNING NEEDS ASSESSMENT: The learning needs assessment revealed no barriers. FALL RISK ASSESSMENT: Fall risk assessment completed. No risk factors identified. SKIN INTEGRITY ASSESSMENT: Skin integrity risk assessment completed. No skin integrity risk identified. --10/25/20 Veena Askew R.N. Interventions Identification band on patient. To treatment room. --10/25/20 Veena Askew R.N.PHYSICAL ASSESSMENTGENERAL / NEURO / PSYCH: Alert. Oriented X 4. Appears in no acute distress.RESPIRATORY: Respirations not labored.CVS: Normal sinus rhythm noted.SKIN: Skin is warm and dry. --12:17 10/25/20 Melvin Bustamante R.N.NURSING PROGRESS NOTESReassurance given. Two patient identifiers checked. Call light placed in reach. Patient ready forevaluation- ED physician notified. --:10/25/20 Veena Askew R.N. 11:59 10/25/2020 Site #1 started via IV in the left forearm with an 20g angiocath; one attempt. Blood drawn: rainbow set. --11:10/25/20 Melvin Bustamante R.N. 11:59 10/25/2020 Started bag #1 1000 mL IV Fluids NS; at 1000 mL/hr over 60 minute(s) via site #1 --1110/25/20 Melvin Bustamante R.N. 12:00 10/25/2020 PROTONIX (Pantoprazole Sodium) IVP 40 mg given over 3 minute(s) via site #1. --12:00 10/25/20 Melvin Bustamante R.N. 12:00 10/25/2020 Zofran (Ondansetron HCl) IVP 4 mg given over 3 minute(s) via site #1. --12:00 10/25/20 Mlevin Bustamante R.N. 3 Clinical Report - Nurses [facility] Emergency Department [address] [place] [address] Phone #: ext- [phone] 10/25/2020 11:15 Patient: DIANA CABEZAS A cct#: [id number] Sex: M : 2000 Age: 20y12:00 10/25/20. BP: 141/68. MAP: 92. HR: 60. RR: 16. O2 saturation: 99%. --12:00 10/25/20 [facility]112:52 10/25/2020 IV Fluids NS via IV site #1 Discontinued: bag #1 infused. Total amount infused: 1000 mL.--12:52 10/25/20 Melvin Bustamante R.N.Reassurance given to the patient. The patient reports no complaints and he is calm. --12:56 10/25/20Melvin Bustamante R.N.12:55 10/25/20. BP: 141/68. MAP: 92. HR: 62. RR: 18. O2 saturation: deferred. Temp: deferred. Painlevel now: 0/10. --12:56 10/25/20 Melvin Bustamante R.N.12:56 10/25/2020 Started bag #1 1000 mL IV Fluids NS; at 1000 mL/hr over 60 minute(s) via site #1--12:56 10/25/20 Melvin Busatmante R.N.12:59 10/25/2020 Started of Pepcid IVPB in bag #1 50 mL; at 100 mL/hr over 30 minute(s) via site #1.--12:59 10/25/20 Melvin Bustamante R.N.13:03 10/25/20. BP: 122/59. MAP: 80. HR: 76. RR: 16. O2 saturation: 100%. --13:04 10/25/20 [facility] [id number] transported to [place] by [facility] hair with tech. --13:05 10/25/20 Melvin Bustamante R.N.14:00 10/25/20. BP: 130/63. MAP: 85. HR: 56. RR: 16. O2 saturation: 100%. --14:00 10/25/20 [facility] Hqcv556:24 10/25/2020 Started 4.5 gm of Zosyn (Piperacillin Sod- Tazobactam So) IVPB in bag #1 50 mL; at 100mL/hr over 30 minute(s) via site #1. --14:24 10/25/20 Melvin Bustamante R.N.The patient is calm and resting quietly. ( In no discomfort resting quietly awaiting surgeon.). --14:243 Melvin Bustamante R.N.14:34 10/25/20. Temp: 97.5 F (oral). --14:35 10/25/20 [facility] Nysw408:56 10/25/20. BP: 122/71. MAP: 88. HR: 51. RR: 16. O2 saturation: 100%. --14:56 10/25/20 [facility] Pnft334:02 10/25/2020 Pepcid IVPB via IV site #1 Discontinued: bag #3 infused. Total amount infused: 100 mL.--15:27 10/25/20 Melvin Bustamante R.N.15:12 10/25/2020 IV Fluids NS via IV site #1 Discontinued: bag #2 infused. Total amount infused: 1000 mL.--15:27 10/25/20 Melvin Bustamante R.N. 4 Clinical Report - Nurses [facility] Emergency Department [address] [place] [address] Phone #: ext- [phone] 10/25/2020 11:15 Patient: DIANA CABEZAS Sex: M : 2000 Age: 20y 15:27 10/25/2020 Zosyn IVPB via IV site #1 Discontinued: bag #4 infused upon transfer. Total amount infused: 50 mL. --15:27 10/25/20 Melvin Bustamante R.N.DISPOSITION / DISCHARGE Report was given to a nurse in person. Report included information regarding patient's treatment and current vital signs. Report included treatment information regarding type and amount of IV fluids and medications infusing. All questions were answered. Report was acknowledged. --15:26 10/25/20 Melvin Bustamante R.N. 15:25 10/25/20. BP: 131/76. MAP: 94. HR: 64. RR: 18. O2 saturation: 99%. Temp: 98.2 F. Pain level now: 10/06. --15:26 10/25/20 Melvin Bustamante R.N. Admitted to the Acute Inpatient Unit via Surgery. --15:26 10/25/20 Melvin Bustamante R.N. Departure time: 15:28 10/25/2020. --15:28 10/25/20 Melvin Bustamante R.N.Locked/Released at 10/25/2020 15:28 by Melvin Bustamante R.N. Name Value Range Interpretation Code Description Data Maria Eugenia rce(s) Supporting Document(s) ID Date Data Source [id number] 10/25/2020 11:18:00 AM EST [facility] 1 Clinical Report - Physicians/Mid Levels [facility] Emergency Department [address] [place] [address] Phone #: ext- [phone] 10/25/2020 11:15 [id number] Sex[facility] M : 2000 Age: 20y Time Seen: 11:29 10/25/2020; initial patient contact. Arrived- By private vehicle. Historian- patient. Disposition decision: 14:14 10/25/2020.HISTORY OF PRESENT ILLNESS Chief Complaint: ABDOMINAL PAIN. This started yesterday and is still present. It was gradual in onset and has been constant. It is described as "pain" and pressure and it is described as located in the epigastric area and in the upper abdomen and radiating to the right flank and to the left flank. At its maximum, severity described as severe and 10 / 10. When seen in the E.D., severity described as severe and 10 / 10. Modifying factors- worsened by movement. Not relieved by anything. No nausea, vomiting or diarrhea. He has had loss of appetite. (pain started 2 hrs after eating [employer]rito at [employer]; no BM in last 2 days, pt has hemorrhoids and usually bleeds w BM's, not new). No recent travel. Similar symptoms previously. None. Recent medical care: Not recently seen/assessed.REVIEW OF SYSTEMSThe patient has had mild constipation but not had weight loss. No black stools, hematemesis, difficultywith urination, pain with urination or urinary frequency. No bloody stools, fever, headache, sore throat orblurred vision. No chest pain, difficulty breathing, cough, joint pain or skin rash. No chills or back pain.All other systems reviewed and are negative.PAST HISTORYSee nurses notes. Problems: Allergic Rhinitis. Constipation. Additional Surgeries: [place] Teeth. Medicat ions: None. Allergies: No Known Drug Allergy.SOCIAL HISTORYNever smoker. No alcohol use or drug use. 2 Clinical Report - Physicians/Mid Levels [facility] Emergency Department [address] [place] [address] Phone #: ext- [phone] 10/25/2020 11:15 Patient: DIANA CABEZAS [facility]#: [id number] Sex: M : 2000 Age: 20yADDITIONAL NOTESThe nursing notes have been reviewed with agreement regarding the chief complaint, HPI, ROS, PMH andpatient medications and allergies.P HYSICAL EXAMVital Signs: 10/25/2020 11:18 BP: 152/83. MAP: 106. HR: 62. RR: 18. O2 saturation: 100%. Temp: 98.6F. Pain level now: 06/05. Have been reviewed. Oxygen saturation normal.Appearance: Alert. Oriented X3. No acute distress.Eyes: Pupils equal, round and reactive to light. Eyes normal inspection.ENT: Nose normal. Pharynx normal.Neck: Normal inspection. Neck supple.CVS: Normal heart rate and rhythm. Heart sounds normal. Pulses normal.Respiratory: No respiratory distress. Painless inspiration. Breath sounds normal. Chest nontender.Abdomen: Soft. Mild tenderness in the upper abdomen, epigastric area, right side of the abdomen andright lower quadrant. No guarding or rebound tenderness. Bowel sounds normal. No organomegaly. [place]. Femoral pulses equal.Back: Normal inspection. No CVA tenderness.Skin: Skin warm and dry. Normal skin color. No rash. Normal skin turgor.Extremities: Extremities exhibit normal ROM. No lower extremity edema.Neuro: Oriented X 3. No motor deficit. No sensory deficit.LABS, X-RAYS, AND EKGAbdominal CT: There is evidence of appendicitis. No inflammatory phlegmon, focal abscess or perforationwith free air. see report; tip of appendix dilated, 0.9 cm w min. thick wall, no periappendiceal inflammation,minimal appendicitis. Study type: abdomen and pelvis. Abdominal CT performed with IV contrast. Thestudy was interpreted by the radiologist. Interpretation time: 13:35 10/25/2020.Laboratory Tests: Laboratory tests have been ordered, with results reviewed and considered in themedical decision making process. COVID-19 CAH: (MAURICIO: 10/25/2020 14:15) ( MsgRcvd 10/25/2020 14:45) Final results Test Result Flag Units (Reference) COVID-19 NOT DETECTED COVID-19 REENTER NOT DETECTED { PROCEDURAL CONTROL VALID KIT LOT # [id number] 10/25/20.1445.DW . KIT EXP DATE _11-15-20_ 10/25/205.DW . NORMAL RANGE IS NOT DETECTEDNEGATIVE RESULTS SHOULD BE TREATED PRESUMPTIVE AND, IF INCONSISTENT WITHCLINICAL SIGNS AND SYMPTOMS OR NECESSARY FOR PATIENT MANAGEMENT, SHOULD BETESTED WITH DIFFERENT AUTHORIZED OR CLEARED MOLECULAR TESTS. NEGATIVE RESULTSDO NOT PRECLUDE SARS-CoV-2 INFECTION AND SHOULD NOT BE USED THE SOLE BASISFOR PATIENT MANAGEMENT DECISIONS. CT Abd PEL W/ IV Contrast Only: (MAURICIO: 10/25/2020 12:53) ( MsgRcvd 10/25/2020 14:12) In Progress Exam CT ABD //T// PELVIS W/ [place] [address] PHONE: [phone] FAX: [phone] Clinical Report - Physicians/Mid Levels [facility] Emergency Department [address] [place] [address] Phone #: ext- [phone] 10/25/2020 11:15 Patient: DIANA CABEZAS Sex: M : 2000 Age: 20yName .................. : PETERSON Ruggiero Acct Number.................. : [id number]. ................. : TR-06 MR Number ................... : [id number] type ............. : E/R Discharge Date......... ... :Admit Date ......... : 10/25/20 Admit Phys .................... : DEMIAN Sanders of ....... : 2000 Family Phys ................... : UNKNOWN BOPhone .................. : [phone] Age ................................ : 20Film# .................. .:[id number] Sex ................................. : MUnsigned transcriptions are preliminary reports and do not represent a medical or legal document CT ABD Reason(s): epigastric and RLQ pain x 24 hrsCT ABDOMENINDICATION: Epigastric and right lower quadrant pain for 24 hours.Previous 09/05/20.FINDINGS:Exam was performed following the administration of 75 cc of Isovue 370.The tip of the appendix is dilated measuring 0.9 cm. The wall of the tip of the appendix isthickened. There is no periappendiceal stranding. The findings suggest minimal appendicitis.The liver, spleen, and pancreas are normal in size and density. No masses are seen. Kidneysdemonstrate no evidence for masses or obstruction. No lymphadenopathy is seen. No ascites isnoted.The spleen measures 12.7 cm, which is at the upper limits of normal in size.IMPRESSION:Minimally dilated tip of the appendix demonstrating a thickened wall, suggesting minimalappendicitis.The spleen is at upper limits of normal in size.While performing the above CT examination, radiation dose reduction was accomplishedutilizing automated exposure control, adjusting of the mA and kV based on the patient's bodysize and/or the use of imperative reconstructive techniques.CT dose 563.7 mGycm.Contrast agent in mL: 75 mL Isovue [address] [place], [place] [address]PHONE: [phone] FAX: [phone] .................. : PETERSON Ruggiero Acct Number.................. : [id number]. ................. : TR-06 MR Number ................... : [id number] type ............. : E/R Discharge Date......... ... :Admit Date ......... : 10/25/20 Admit Phys .................... : DEMIAN RICDate of ....... : 2000 Family Phys ................... : UNKNOWN BOPhone .................. : [phone] Age ................................ : 20Film# .................. .:[id number] Sex ................................. : MUnsigned transcriptions are preliminary reports and do not represent a medical or legal document 4 Clinical Report - Physicians/Mid Levels [facility] Emergency Department [address] [place] [address] Phone #: ext- [phone] 10/25/2020 11:15 Patient: DIANA CABEZAS Sex: M : 2000 Age: 20y CT ABD Reason(s): epigastric and RLQ pain x 24 hrs Method of administration: Intravenous Electronically Reviewed and Signed By JAROD SIGNDATE, AMELIA Transcribe Initials: SSR, Transcribe Date: 10/25/20 13:41, Dictation Date: <<REPDIST>> Page 2 of 2CBC w Diff: (MAURICIO: 10/25/2020 11:55) ( MsgRcvd 10/25/2020 12:08) Final results Test Result Flag Units (Reference) CBC W/AUTOMATED DIFF COMPLETE BLOOD COUNT WBC 7.7 10/uL (4.2 - 11.0) RBC 5.40 10/uL (4.50 - 6.30) HEMOGLOBIN 15.6 g/dL (14.0 - 16.0) HEMATOCRIT 44.2 % (41.0 - 51.0) MCV 81.9 fL (80.0 - 94.0) MCH 28.9 pg (27.0 - 34.0) MCHC 35.3 g/dL (31.0 - 36.0) RDW 11.9 % (11.5 - 14.8) PLATELETS 257 10/uL (150 - 450) MPV 9.9 fL (7.4 - 10.4) NEUT 65.5 % (37.0 - 80.0) LYMPH 22.7 L % (25.0 - 40.0) MONO 8.7 H % (3.0 - 8.0) EOS 2.2 % (0.0 - 7.0) BASO 0.6 % (0.0 - 2.0) %IG 0.3 H % (0.0 - 0.0) %NRBC 0.0 % (0.0 - 0.0) #NEUT 5.07 10/uL (2.00 - 6.90) #LYMPH 1.76 10/uL (0.60 - 3.40) #MONO 0.67 10/uL (0.00 - 0.90) #EOS 0.17 10/uL (0.00 - 0.70) #BASO 0.05 10/uL (0.00 - 0.20) #IG 0.02 10/uL (0.00 - 0.10) #NRBC 0.00 10/uL (0.00 - 0.00) MANUAL DIFF NOT INDICATED RBC MORPH NOT INDICATEDCMP: (MAURICIO: 10/25/2020 11:55) ( MsgRcvd 10/25/2020 12:36) Final results Test Result Flag Units (Reference) COMPREHENSIVE METABOLIC PANEL COMPREHENSIVE METABOLIC PANEL 5 Clinical Report - Physicians/Mid Levels [facility] Emergency Department [address] [place] [address] Phone #: ext- [phone] 10/25/2020 11:15 Patient: DIANA CABEZAS Sex: M : 2000 Age: 20y SODIUM 135 mEq/L (134 - 153) POTASSIUM 3.9 mEq/L (3.6 - 5.0) CHLORIDE 99 mEq/L (98 - 107) CO2 26 MEQ/L (22 - 30) GLUCOSE 89 MG/DL (70 - 99) BUN 14 MG/DL (7 - 21) CREATININE 0.8 MG/DL (0.7 - 1.5) BUN/CREAT 18 (8 - 27) TOTAL PROTEIN 7.4 G/DL (6.3 - 8.2) ALBUMIN 4.9 G/DL (3.9 - 5.0) GLOBULIN 2.5 GM/DL (2.4 - 3.2) A/G RATIO 2.0 (0.8 - 2.0) CALCIUM 9.8 MG/DL (8.4 - 10.2) TOTAL BILI 1.0 MG/DL (0.2 - 1.3) ALKALINE PHOS 142 H U/L (38 - 126) SGOT/AST 22 U/L (5 - 40) SGPT/ALT 32 U/L (7 - 56) ANION GAP 10.0 mmol/L (8.0 - 16.0) AGE 20 yrs NON-AA GFR >60 mL/min AFR AMER GFR >60 mL/min Male GFR Interprentation 20-49 yrs >60 mL/min Zxrwcl36-59 yrs >56 mL/min Normal 60-69 yrs >49 mL/min Normal 70-79yrs>42 mL/min Normal 80 and above >35 mL/min Normal Female GFRInterpretation 20-39 yrs >60 mL/min Normal 40-49 yrs >58 mL/minNormal 50-59 yrs >51 mL/min Normal 60-69 yrs >45 mL/min Jmvcos69-75 yrs >39 mL/min Normal 80 and above >32 mL/min NormalLipase: (MAURICIO: 10/25/2020 11:55) ( [facility] [place] 12:32[place] Final results Test Result Flag Units (Reference) LIPASE 28 U/L (13 - 60)Urinalysis: (MAURICIO: 10/25/2020 11:40) ( [facility] [place] 10/25/2020 11:49) Final results Test Result Flag Units (Reference) URINALYSIS URINALYSIS SOURCE Clean Catch COLOR yellow (NORMAL: Yello CLARITY clear (NORMAL: Clear SPEC GRAVITY 1.015 (1.001 - 1.030 pH 5 (5 - 9) GLUCOSE NORM (NORMAL: Negat BILIRUBIN NEG (NORMAL: Negat KETONE NEG (NORMAL: Negat PROTEIN NEG (NORMAL: Negat NITRITE NEG (NORMAL: Negat BLOOD NEG (NORMAL: Negat LEUK EST NEG (NORMAL: Negat UROBILINOGEN NOR (less than 1.0 MICROSCOPIC Not IndicateLactic Acid: (MAURICIO: 10/25/2020 11:55) ( [facility] [place] 12:24) Final results Test Result Flag Units (Reference) LACTIC ACID 1.4 MMOL/L (0.2 - 2.2) 6 Clinical Report - Physicians/Mid Levels [facility] Emergency Department [address] [place] [address] Phone #: ext- [phone] 10/25/2020 11:15 Patient: DIANA CABEZAS Sex: M : 2000 Age: 20y.PROGRESS AND PROCEDURESCourse of Care: 12:53 10/25/20. workup all in and reviewed and nml, incl. lactic and UA, pt feeling better,has residual epigastric and RLQ pain, no guarding, will do CTAP w IV 14:12 10/25/20. CTAP w IV results show minimal appendicitis; Dr. Araiza, surgeon on- call, will bring pt to OR in 2 hrs; pt made aware; will add some Zosyn IV, feels slightly better. Critical care performed (60 minutes). Time is exclusive of separately billable procedures. Time includes: direct patient care, patient reassessment, coordination of patient care, interpretation of data (laboratory data), medical consultation and documentation of patient care- see progress notes. Patient counseled in person regarding the patient's stable condition, test results, diagnosis and need for surgery. Patient agrees with plan of care. Disposition: Condition: good and stable. Admit decision based on need for IV therapy, hydration, antibiotics and medications, pain control and surgery.CLINICAL IMPRESSION Acute appendicitis with localized peritonitis.(Electronically signed by Rehana Arciniega M.D. 10/25/2020 15:48) Name Value Range Interpretation Code Description Data Maria Eugenia rce(s) Supporting Document(s) ID Date Data Source [id number] 10/25/2020 02:15:00 PM EST [facility] Name Value Range Interpretation Code Description Data Maria Eugenia rce(s) Supporting Document(s) COVID19 Case rprt NOT DETECTED [facility] This lab was ordered by [facility] and [facility] ID Date Data Source [id number] 10/25/2020 02:45:00 PM EST [facility] NOT DETECTEDNOT DETECTED{ [facility] LOT # _[id number] 10/25/20.5.DW . KIT EXP DATE _[id number] 10/25/20.DW . NORMAL RANGE IS NOT DETECTEDNEGATIVE RESULTS SHOULD BE TREATED PRESUMPTIVE AND, IF INCONSISTENT WITHCLINICAL SIGNS AND SYMPTOMS OR NECESSARY FOR PATIENT MANAGEMENT, SHOULD BETESTED WITH DIFFERENT AUTHORIZED OR CLEARED MOLECULAR TESTS. NEGATIVE RESULTSDO NOT PRECLUDE SARS-CoV-2 INFECTION AND SHOULD NOT BE USED THE SOLE BASISFOR PATIENT MANAGEMENT DECISIONS. Name Value Range Interpretation Code Description Data Maria Eugenia rce(s) Supporting Document(s) ID Date Data Source [id number] 10/25/2020 12:36:00 PM EST [facility] Name Value Range Interpretation Code Description Data [facility] rce(s) Supporting Document(s) COMPREHENSIVE METABOLIC PANEL [facility] COMPREHENSIVE METABOLIC PANEL Sodium [Moles/volume] in Serum or Plasma 135 mEq/L 134 - 153 [facility] Potassium [Moles/volume] in Serum or Plasma 3.9 mEq/L 3.6 - 5.0 [facility] Chloride [Moles/volume] in Serum or Plasma 99 mEq/L 98 - 107 [facility] Carbon dioxide, total [Moles/volume] in Serum or Plasma 26 MEQ/L 22 - 30 [facility] Glucose [Mass/volume] in Serum or Plasma 89 MG/DL 70 - 99 [facility] BUN 14 MG[facility]DL 7 - [facility] Creatinine [Mass/volume] in Serum or Plasma 0.8 MG/DL 0.7 - 1.5 [facility] BUN/CREAT 18 8 - 27 [facility] Protein [Mass/volume] in Serum or Plasma 7.4 G/DL 6.3 - 8.2 [facility] Albumin [Mass/volume] in Serum or Plasma 4.9 G/DL 3.9 - 5.0 [facility] Globulin [Mass/volume] in Serum by calculation 2.5 GM/DL 2.4 - 3.2 [facility] A/G RATIO 2.0 0.8 - 2.0 [facility] Calcium [Mass/volume] in Serum or Plasma 9.8 MG/DL 8.4 - 10.2 [facility] Bilirubin.total [Mass/volume] in Serum or Plasma 1.0 MG/DL 0.2 - 1.3 [facility] Alkaline phosphatase [Enzymatic activity/volume] in Serum or Plasma 142 U/L 38 - 126 H [facility] Aspartate aminotransferase [Enzymatic activity/volume] in Serum or Plasma 22 U/L 5 - 40 [facility] Alanine aminotransferase [Enzymatic activity/volume] in Seru m or Plasma 32 U/L 7 - 56 [facility] Anion gap 3 in Serum or Plasma 10.0 mmol/L 8.0 - 16.0 [facility] AGE 20 yrs [facility] NON-AA GFR >60 mL/min [facility] AFR AMER GFR >60 mL/min [facility] Male GFR In terprentation 20-49 yrs >60 mL/min Normal 50-59 yrs >56 mL/min Normal 60-69 yrs >49 mL/min Normal 70-79yrs >42 mL/min Normal 80 and above >35 mL/min Normal Female GFR Interpretation 20-39 yrs >60 mL/min Normal 40-49 yrs >58 mL/min Normal 50-59 yrs >51 mL/min Normal 60-69 yrs >45 mL/min Normal 70-79 yrs >39 mL/min Normal 80 and above >32 mL/min Normal ID Date Data Source [id number] 10/25/2020 12:32:00 PM [facility] Name Value Range Interpretation Code Description Data Maria Eugenia rce(s) Supporting Document(s) Lipase [Enzymatic activity/volume] in Serum or Plasma 28 U/L 13 - 60 [facility] ID Date Data Source [id number] 10/25/2020 12:24:00 PM [facility] Name Value Range Interpretation Code Description Data Maria Eugenia rce(s) Supporting Document(s) Lactate [Moles/volume] in Serum or Plasma 1.4 MMOL/L 0.2 - 2.2 [facility] ID Date Data Source [id number] 10/25/2020 12:08:00 PM EST [facility] Name Value Range Interpretation Code Description Data Maria Eugenia rce(s) Supporting Document(s) CBC W/AUTOMATED DIFF [facility] COMPLETE BLOOD COUNT Leukocytes [#/volume] in Blood by Automated count 7.7 10^3/uL 4.2 - 1 1.0 [facility] Erythrocytes [#/volume] in Blood by Automated count 5.40 10^6/uL 4. 50 - 6.30 [facility] Hemoglobin [Mass/volume] in Blood 15.6 g/dL 14.0 - 16.0 [facility] Hematocrit [Volume Fraction] of Blood by Automated count 44.2 % 4 1.0 - 51.0 [facility] Erythrocyte mean corpuscular volume [Entitic volume] by Auto mated count 81.9 fL 80.0 - 94.0 [facility] Erythrocyte mean corpuscular hemoglobin [Entitic mass] by Automated count 28.9 pg 27.0 - 34.0 [facility] Erythrocyte mean corpuscular hemoglobin concentration [Mass/volume] by Automated count 35.3 g/dL 31.0 - 36.0 [facility] Erythrocyte distribution width [Ratio] by Automated count 11.9 % 11.5 - 14.8 [facility] Platelets [#/volume] in Blood by Automated count 257 10^3/uL 150 - 45 0 [facility] Platelet mean volume [Entitic volume] in Blood by Automated count 9.9 fL 7.4 - 10.4 [facility] Neutrophils/100 leukocytes in Blood by Automated count 65.5 % 37. 0 - 80.0 [facility] Lymphocytes/100 leukocytes in Blood by Manual count 22.7 % 25.0 - 40.0 L [facility] Monocytes/100 leukocytes in Blood by Automated count 8.7 % 3.0 - 8.0 H [facility] Eosinophils/100 leukocytes in Blood by Automated count 2.2 % 0.0 - 7.0 [facility] Basophils/100 leukocytes in Blood by Automated count 0.6 % 0.0 - 2.0 [facility] %IG 0.3 % 0.0 - 0.0 H [facility] %NRBC 0.0 % 0.0 - 0.0 [facility] Neutrophils [#/volume] in Blood by Automated count 5.07 10^3/uL 2.00 - 6.90 [facility] Lymphocytes [#/volume] in Blood by Automated count 1.76 10^3/uL 0.60 - 3.40 [facility] Monocytes [#/volume] in Blood by Automated count 0.67 10^3/uL 0.00 - 0.90 [facility] Eosinophils [#/volume] in Blood by Automated count 0.17 10^3/uL 0.00 - 0.70 [facility] Basophils [#/volume] in Blood by Automated count 0.05 10^3/uL 0.00 - 0.20 [facility] #IG 0.02 10^3/uL 0.00 - 0.10 [facility] #NRBC 0.00 10^3/uL 0.00 - 0.00 [facility] MANUAL DIFF NOT INDICATED [facility] RBC MORPH NOT INDICATED [facility] ID Date Data Source [id number] 10/25/2020 11:49:00 AM EST [facility] Name Value Range Interpretation Code Description Data Maria Eugenia rce(s) Supporting Document(s) [facility]IS [facility] UR[facility] SOURCE Clean Catch [facility] COLOR yellow NORMAL: Yellow [facility] CLARITY clear NORMAL: Clear [facility] Specific gravity of Urine by Test strip 1.015 1.001 - 1.030 [facility] pH 5 5 - 9 [facility] Glucose [Mass/volume] in Urine by Test strip NORM NORMAL: Negat [facility] Bilirubin.total [Presence] in Urine by Test strip NEG NORMAL: Negative [facility] Ketones [Presence] in Urine by Test strip NEG NORMAL: Negative [facility] Protein [Mass/volume] in Urine by Test strip [facility] [Presence] in Urine by Test strip NEG NORMAL: Negative [facility] BLOOD NEG NORMAL: Negative [facility] Leukocyte esterase [Presence] in Urine by Test strip NEG VIVEK L: Negative [facility] Urobilinogen [Mass/volume] in Urine by Test strip NOR less florentin n 1.0 mg/dL [facility] MICROSCOPIC Not Indicate [facility] ID Date Data Source [id number] 09/10/2020 02:11:00 PM EST [facility] 1 OrderSheet [facility] Emergency Department [address] [place] [address] Phone #: ext- [phone] 09/10/2020 14:10 Patient: DIANA WINKLER Sex: M : 2000 Age: 20yWEIGHT:77.1 kg (S) HEIGHT:69 inches (S) BMI:25.1ALLERGIES: No Known Drug AllergyCHIEF COMPLAINT: earacheDIAGNOSIS: Toothache, Temporomandibular joint disorderLAB ORDERSOrder Description Priority Entered Acknowledged InitialedDIAGNOSTIC STUDY ORDERSOrder Description Priority Entered Acknowledged InitialedMEDICATION/IV/DRIP/FLUID ORDERSOrder Description Priority Entered Acknowledged InitialedToradol IM 60 mg 14:32 09/10/2020 14:40 Amado Arevalo;GENERAL ORDERSOrder Description Priority Entered Acknowledged Initialed[Electronically signed by Sandra Arevalo (14:50 09/10/2020)][Electronically signed by Sandra Arevalo (14:50 )][Electronically signed by Sandra Arevalo (14:52 09/10/2020)][Electronically signed by Sandra Arevalo (14:54 09/10/2020)][Electronically signed by Amado Dominique (21:33 09/10/2020)][Electronically locked by Sandra Arevalo (14:50 09/10/2020)] Name Value Range Interpretation Code Description Data Maria Eugenia rce(s) Supporting Document(s) ID Date Data Source [id number] 09/10/2020 02:11:00 PM [facility] 1 Medication Reconciliation Report [facility] Emergency Department [address] [place] [address] Phone #: ext- [phone] 09/10/2020 14:10 Patient: DIANA WINKLER Sex: M : 2000 Age: 20yWeight: 77.1 kgHeight/Length: 69 in.BMI: 25.1ALLERGIES: No Known Drug AllergyThe patient's Home Medications are listed below:CONTINUE TAKING THE FOLLOWING MEDICATIONS: Ibuprofen Oral oxyCODONE-Acetaminophen Oral (5-325 mg), was given for wisdom teeth, prnThe source(s) of the original Home Medication information:patientThe following Medications were given to the patient in the Emergency Department:Toradol [IM] IM 60 mg, administered: 14:40 09/10/2020The following Medications were prescribed to the patient:clindamycin HCl 300 mg capsule Take 1 capsule four times a day for 10 days -- Dispense 40 capsule.Refills: 0. Substitution permitted.Pharmacy - [facility] [id number] ; [place] [address]. . -- HUSSAIN Maradiaga Name Value Range Interpretation Code Description Data Maria Eugenia rce(s) Supporting Document(s) ID Date Data Source [id number] 09/10/2020 02:11:00 PM [facility] 1 Medication Administration Record [facility] Emergency Department [address] [place] [address] Phone #: ext- [phone] 09/10/2020 14:10 Patient: DIANA WINKLER Sex: M : 2000 Age: 20yWeight: 77.1 kgHeight/Length: 69 inBMI: 25.1ALLERGIES: No Known Drug Allergy Date/Time Medication Administered Medication OrderedGiven TORADOL [IM] (KETOROLAC Toradol IM 60 mg14:40 09/10/2020 TROMETHAMINE)Sandra Arevalo, Dose: 60 mg IM Name Value Range Interpretation Code Description Data Maria Eugenia rce(s) Supporting Document(s) ID Date Data Source [id number] 09/10/2020 02:11:00 PM EST [facility] 1 General Instructions [facility] Emergency Department [address] [place] [address] Phone #: ext- [phone] 09/10/2020 14:10 Patient: DIANA WINKLER Sex: M : 2000 Age: 20yRight sided and left sided acute temporomandibular joint syndrome.Moderate dental pain.INSTRUCTIONSWarnings: Further evaluation is necessary. It is very important to follow up with a healthcare provider.GENERAL WARNINGS: Return or contact your physician immediate ly if your condition worsens orchanges unexpectedly, if not improving as expected, or if other problems arise. Specifically return if pain orfever worsens.Your Current Medications: Your current home medications have been reviewed.CONTINUE TAKING THE FOLLOWING MEDICATIONS:Ibuprofen Oral.oxyCODONE- Acetaminophen Oral : Tablet 5-325 mg, prn, was given for wisdom teeth.Prescription Medications:clindamycin HCl 300 mg capsule Take 1 capsule four times a day for 10 days -- Dispense 40 capsule.Refills: 0. Substitution permitted.Pharmacy - [facility] [id number] ; [place] [address]. .Follow-up:Follow up with a specialist Dentist Sunday. Call for an appointment. Reason for referral: evaluation andtreatment. Summary of care provided to patient.Understanding of the discharge instructions verbalized by patient. ADDITIONAL INFORMATIONTMJ SyndromeThe temporomandibular joint (TMJ) is the joint that connects your lower jaw to your head. You canfeel it in front of your ears when you open and close your mouth. TMJ disorders involve chronic orrecurrent pain in the joint. When treated, symptoms of TMJ disorders usually go away within a fewmonths.Causes 2 General Instructions [facility] Emergency Department [address] [place] [address] Phone #: ext- [phone] 09/10/2020 14:10 Patient: DIANA WINKLER Sex: M : 2000 Age: 20yThere is no widely agreed-on cause of TMJ disorders. They have been linked to injury, arthritis,chronic fatigue syndrome, and fibromyalgia. A definite connection has not been shown, though.Symptoms Pain in the face, jaw, or neck Pain with jaw movement or chewing Locking or catching sensation of the jaw Clicking, popping, or grinding sounds with movement of the TMJ Headache Ear painHome careModest, nonsurgical treatments are a good first step toward relieving symptoms. Try the approachesdescribed below. Rest the jaw by avoiding crunchy or ocjg-dd-xnuo foods. Don't eat hard or sticky candies. Soft foods and liquids are easier on the jaw. Protect your jaw while yawning. If you need to yawn, put your fist under your chin to prevent your mouth from opening up too wide. To help relieve pain, try applying hot or cold packs to the painful area. Try both hot and cold to find out which works best for you. To make a cold pack, put ice cubes in a plastic bag that seals at the top. Wrap the bag in a clean, thin towel or cloth. Never put ice or an ice pack directly on the skin. If you use hot packs (small towels soaked in hot water), be careful not to burn yourself. You may take acetaminophen or ibuprofen for pain, unless you were given a different pain medicine. (Note: If you have chronic liver or kidney disease or have ever had a stomach ulcer or gastrointestinal bleeding, talk with your healthcare provider before using these medicines. Also talk to your provider if you are taking medicine to prevent blood clots.) Don't give aspirin to a child younger than age 19 unless direc steven by the child's provider. Taking aspirin can put a child at risk for Mckenzie syndrome. This is a rare but very serious disorder that most often affects the brain and the liver.Reducing stressIf stress seems to be contributing to your symptoms, try to identify the sources of stress in your life.These aren't always obvious. Common stressors include: 3 General Instructions [facility] Emergency Department [address] [place] [address] Phone #: ext- [phone] 09/10/2020 14:10 Patient: DIANA WINKLER Sex: M : 2000 Age: 20y Everyday hassles. These include things such as traffic jams, missed appointments, or car trouble. Major life changes. These can be good, such as a new baby or job promotion. And they can be bad, such as losing a job or losing a loved one. Overload. The feeling that you have too many responsibilities and can't take care of everything at once. Helplessness. Feeling like your problems are more than you can solve.When possible, do something about your sources of stress. See if you can avoid hassles, limit theamount of change in your life at one time, and take breaks when you feel overloaded.Unfortunately, many stressful situations cannot be avoided. So learning how to manage stress betteris very important. Getting regular exercise, eating nutritious, balanced meals, and getting adequaterest all help to make everyday stress more manageable. Certain techniques are also helpful:relaxation and breathing exercises, visualization, biofeedback, meditation, or simply taking some timeout to clear your mind. For more information, talk with your healthcare provider.Follow-up careFollow up with your healthcare provider, or as advised. Further testing and additional treatment maybe required. If changes to your lifestyle do not improve your symptoms, talk with your healthcareprovider about other available therapies. These include bite guards for help with teeth grinding, stressmanagement techniques, and more. If stress is an important factor and does not respond to theabove simple measures, talk with your [facility] provider about a referral for stress management.If X-rays were done, they will be reviewed by a specialist. You will be notified of the results, especiallyif they affect treatment.Call [phone] if any of these occur: Trouble breathing or swallowing, wheezing Confusion Extreme drowsiness or trouble awakening Fainting or loss of consciousness Rapid heart rateWhen to seek medical advice 4 General Instructions [facility] Emergency Department [address] [place] [address] Phone #: ext- [phone] 09/10/2020 14:10 Patient: DIANA WINKLER Sex: M : 2000 Age: 20yCall your healthcare provider right away if any of these occur: Swollen or red face Pain gets worse Neck, mouth, tooth, or throat pain gets worse Fever of 100.4F (38C) or higher, or as directed by your healthcare provider [id number] [employer] [place] [address], [place] [address]. All rights reserved. This information is not intended as asubstitute for professional medical care. Always follow your healthcare professional's instructions.Dental AbscessA dental abscess is an infection of the tooth socket. It often starts with a crack or cavity in the tooth. Apocket of pus forms between the tooth and the bone. The infection causes pain and swelling of thegum, cheek, or jaw. The pain is often made worse by drinking hot or cold fluids, or biting on hardfoods. Pain may be felt in the facial sinus or in the ear. A severe infection can cause problems withswallowing and breathing.Causes Cavities Trauma Previous dental workSymptoms Pain Swelling around the tooth or face and cheek Redness Bad breath Bad taste in the mouth FeverYou will be started on an antibiotic. But, final treatment requires draining the pus. This can be done byremoving the tooth or getting a root canal. An oral surgeon typically removes diseased teeth. Anendodontist does a root canal. This involves drilling an opening in the tooth to get to access thecanals in the root. Once these are reached, the pus can be drained. Then the canals are cleaned andshaped before filling them with a special material called partha percha. After the infection has healed, a 5 General Instructions [facility] Emergency Department [address] [place] [address] Phone #: ext- [phone] 09/10/2020 14:10 Patient: DIANA WINKLER Sex: M : 2000 Age: 20ycrown is placed over the tooth.Home careThe following guidelines will help you care for your abscess at home: Don't have hot or cold foods and liquids. Your tooth may be sensitive to temperature changes. If your tooth is chipped or cracked, or if there is a large open cavity, apply oil of cloves directly to the tooth to reduce pain. Oil of cloves is sold wbqy-uoe-sxxlojk in pharmacies. Some pharmacies carry an eovw-bjj-lrihqrm "toothache kit." This contains oil of cloves and a paste, which can be applied over the exposed tooth to decrease sensitivity. Apply an ice pack (ice cubes in a plastic bag, wrapped in a towel) over the injured area for 10 to 20 minutes every 1 to 2 hours the first day for pain relief. Continue this 3 to 4 times a day until the pain and swelling goes away. To make an ice pack, put ice cubes in a plastic bag that seals at the top. Wrap the bag in a clean, thin towel or cloth. Never put ice or an ice pack directly on the skin. You can take acetaminophen or ibuprofen for pain, unless you were given a different pain medicine to use. If you have chronic liver or kidney disease, have ever had a stomach ulcer or gastrointestinal bleeding, or are taking blood-thinning medicines, talk with your healthcare provider before using these medicines. An antibiotic will be prescribed. Take it as directed until completed, even if you are feeling better sooner.Follow-up careFollow up as advised with an pharmacist apprentice, or oral surgeon. Even though your pain may improve withthe treatment given today, only a dentist, pharmacist apprentice, or oral surgeon can provide full treatment forthis problem. If a culture was done, you will be told if the treatment needs to be changed. You can call in as directed for the results. If X-rays were taken, they will be reviewed by a specialist. You will be given the results, especially if they affect treatment.Call [phone] if any of these occur: Trouble breathing or swallowing, or wheezing Hoarse voice or trouble speaking 6 General Instructions [facility] Emergency Department [address] [place] [address] Phone #: ext- [phone] 09/10/2020 14:10 Patient: DIANA WINKLER Sex: M : 2000 Age: 20y Confusion Extreme drowsiness or trouble awakening Fainting or loss of consciousness Rapid heart rateWhen to seek medical adviceCall your healthcare provider right away if any of these occur: Swollen or red face or eyelid Pain gets worse or spreads to the neck You have a fever of 100.4F (38C) or higher, or as directed by your healthcare provider Unusual drowsiness, a headache or stiff neck, or weakness Pus drains from the gum or tooth You can't open your mouth wide [id number] [employer]. [address] [place] [address], [place] [address]. All rights reserved. This information is not intended as asubstitute for professional medical care. Always follow your healthcare professional's instructions. You have been given the following additional information: TMJ Syndrome Tooth Abscess(Electronically signed by HUSSAIN Maradiaga 09/10/2020 21:33) Name Value Range Interpretation Code Description Data Maria Eugenia rce(s) Supporting Document(s) ID Date Data Source [id number] 09/10/2020 02:11:00 PM EST [facility] 1 Clinical Report - Nurses [facility] Emergency Department [address] [place] [address] Phone #: [phone]- [phone] 09/10/2020 14:10 Patient: DIANA WINKLER Sex: M : 2000 Age: 20yTRIAGEArrived by private vehicle. Historian: patient. Unaccompanied.Triage time: 14:11 09/10/2020. Acuity: LEVEL 4.Chief Complaint: RIGHT EAR PAIN and LEFT EAR PAIN.Alert. No acute distress.Onset. (2 days ago). ( Pt states both ears are hurting but the right is worse. He stresses the pain isworse when he wakes up. He describes it as pressure in both ears "like they are going to explode" Pt hashis wisdom teeth removed last Sun. Yesterday had a right lower tooth extracted yesterday as well.).Treatment INVENTORY CHECKER:None.SEPSIS SCREEN: SIRS SCREEN NEGATIVE: heart rate greater than 90. SEPSIS SCREEN NEGATIVE.No suspected or confirmed signs of infection present. --14:16 09/10/20 Danya Basurto R.N.14:11 09/10/20. BP: 134/88. MAP: 103. HR: 94. RR: 16. O2 saturation: 99% on room air. Temp: 98.2 F.Pain level now: 06/05. --14:16 09/10/20 Danya Basurto R.N.Weight: 77.1 kg stated. Height/Length: 69 inches Per Patient. BMI: 25.1. --14:10 09/10/20 Danya Basurto R.N.MedicationsIbuprofen Oral. --14:16 09/10/20 Danya Basurto R.N. oxyCODONE-Acetaminophen Oral (Tablet 5-325 mg), as needed (was given for wisdom teeth). --14: Danya Basurto R.N.AllergiesNo Known Drug Allergy. --14:17 09/10/20 Danya Basurto R.N.PROBLEMS:Constipation.Allergic Rhinitis. --14:18 09/10/20 Danya aBsurto R.N.Medication/allergy information source: the patient. --14:16 09/10/20 Danya Basurto R.N.ADDITIONAL SURGERIES:[place] Teeth. --14:18 09/10/20 Danya Basurto R.N. 2 Clinical Report - Nurses [facility] Emergency Department [address] [place] [address] Phone #: ext- [phone] 09/10/2020 14:10 Patient: DIANA WINKLER Sex: M : 2000 Age: 20y History PAST MEDICAL HX: Immunizations: up-to-date. SOCIAL HX: Never smoker. No alcohol use or drug use. The patient was offered HIV testing but declined. Patient education was provided. The patient was offered hepatitis C testing but declined. Patient education was provided. The patient has not traveled outside the [place] Infectious disease exposure: No infectious disease exposure. (COVID screen negative). Patient is not a known carrier of tuberculosis, hepatitis, HIV, MRSA or VRE. Patient is not a known carrier of CRE. SELF HARM ASSESSMENT: Self harm assessment was performed. The patient answered "no" to the question(s) "Do you have thoughts of harming or killing yourself?", "Do you have a plan for harming or killing yourself?" and "Have you recently had thoughts about harming or killing others?". ABUSE ASSESSMENT: Abuse assessment. The patient had positive responses to the question(s) "Do you feel safe in your home?" (yes). Abuse denied. No suspicion of abuse. No report of abuse. NUTRITIONAL RISK ASSESSMENT: The nutritional risk assessment revealed no deficiencies. FUNCTIONAL ASSESSMENT: Functional assessment: no impairments noted. LEARNING NEEDS ASSESSMENT: The learning needs assessment revealed no barriers. FALL RISK ASSESSMENT: Fall risk assessment completed. No risk factors identified. SKIN INTEGRITY ASSESSMENT: Skin integrity risk assessment completed. No skin integrity risk identified. --14:16 09/10/20 Danya Basurto R.N. Inte rventions Identification band on patient. --14:16 09/10/20 Danya Basurto R.N.PHYSICAL ASSESSMENTGENERAL / NEURO / PSYCH: Alert. Appears in no acute distress. Appears in pain.HEENT: Pupils equal, round and reactive to light. Dental tenderness (right upper, left upper) (pt just hadtooth extraction c/o dental pain bi-lateral upper. also c/o bilateral ear pain.). Pharynx within normal limitsand limits. Voice within normal limits.RESPIRATORY: Respirations not labored.CVS: Capillary refill less than 2 seconds.SKIN: Skin is warm and dry. --14:32 09/10/20 Sandra Arevalo.NURSING PROGRESS NOTESThree patient haven ntifiers checked. Call light placed in reach. Side rails up x 2. Bed placed in lowestposition. Brakes of bed on. Patient ready for evaluation- ED physician and PA notified. --14:18 09/10/20Danya Basurto R.N. 14:40 09/10/2020 Toradol (Ketorolac Tromethamine) IM 60 mg given. Given in the left deltoid. Allergies 3 Clinical Report - Nurses [facility] Emergency Department [address] [place] [address] Phone #: ext- [phone] 09/10/2020 14:10 Patient: DIANA WINKLER Sex: M : 2000 Age: 20y verified and confirmed 5 rights. Information reviewed with patient including reason for taking this medication, signs of allergic reaction and precautions. Verbalizes understanding. --14:40 09/10/20 Sandra Arevalo.DISPOSITION / DISCHARGE Condition at departure: stable. No learning barriers present. Discharge instructions provided and reviewed with the patient. Reviewed medication(s) side effects information. Prescription(s) sent electronically to pharmacy. Patient verbalized understanding. Written instructions provided in [place]. 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 He was discharged home. He left ambulatory and via private vehicle. --14:49 09/10/20 Sandra Arevalo 14:47 09/10/20. BP: 122/68. HR: 63. RR: 16. O2 saturation: 98%. Temp: 98.5 F. Pain level now 10/06. --14:49 09/10/20 Sandra Arevalo 14:49 09/10/20. Departure time: 14:49 09/10/2020. --14:53 09/10/20 Sandra Arevalo.Locked/Released at 09/10/2020 14:54 by Sandra Arevalo Name Value Range Interpretation Code Description Data Maria Eugenia rce(s) Supporting Document(s) ID Date Data Source [id number] 09/10/2020 02:11:00 PM EST [facility] 1 Clinical Report - Physicians/Mid Levels [facility] Emergency Department [address] [place] [address] Phone #: ext- [phone] 09/10/2020 14:10 Patient: DIANA WINKLER Sex: M : 2000 Age: 20y Time Seen: 14:20 09/10/2020. Arrived- By private vehicle. Historian- patient.HISTORY OF PRESENT ILLNESS Chief Complaint: EARACHE. This started 2 days ago; Pt states both ears are hurting but the right is worse. He stresses the pain is worse when he wakes up. He describes it as pressure in both ears "like they are going to explode" Pt has his wisdom teeth removed last Sun. Yesterday had a right lower tooth extracted yesterday as wel and is still present. It was gradual in onset and has been constant. Location- right ear and left ear. The pain is described as moderate. The patient has had ear pain. No ear drainage, hearing loss, nasal discharge or congestion or sinus pressure. No complaint of foreign body in the ear, ear trauma, recent barotrauma, tinnitus or sore throat. No toothache or facial pain. The patient has had jaw pain. Similar symptoms previously. None. Recent medical care: The patient was seen recently at another facility in a clinic. ( pt had 4 wisdom teeth pulled then additional molar pulled that was infected.).REVIEW OF SYSTEMSNo fever, chills, cough, difficulty breathing or chest pain. No headache, nausea, vomiting, diarrhea orabdominal pain. No difficulty with urination, skin rash, enlarged lymph nodes or joint pain. Has not haddecreased oral intake.PAST HISTORYProblems:Constipation.Allergic Rhinitis. Additional Surgeries: [place] Teeth. Medications: oxyCODONE-Acetaminophen Oral (Tablet 5-325 mg), as needed (was given for wisdom teeth). Ibuprofen Oral. Allergies: No Known Drug Allergy.SOCIAL HISTORYNever smoker. Not exposed to second-hand smoke at home. No alcohol use or drug use. 2 Clinical Report - Physicians/[facility] Emergency Department [address] [place] [address] Phone #: ext- [phone] 09/10/2020 14:10 [id number] Sex[facility] M : 2000 Age: 20yPHYSICAL EXAMVital Signs: 09/10/2020 14:11 BP: 134/88. MAP: 103. HR: 94. RR: 16. O2 saturation: 99% on room air.Temp: 98.2 F. Pain level now: 06/05. Have been reviewed as normal. Oxygen saturation normal.Appearance: Alert. No acute distress.Eyes: Eyes normal inspection.ENT: (pos. TTP bilat TMJ).Nose: Nose normal.Ear (left): Left ear normal. Left tympanic membrane normal.Ear (right): Right ear normal. Right tympanic membrane normal.Throat: Pharynx normal. (dry socket #30).Neck: Normal inspection. Neck supple.CVS: Normal heart rate and rhythm.Respiratory: No respiratory distress.Abdomen: Soft and nontender.Back: Normal inspection.Skin: Skin warm and dry. Normal skin color. No rash. Normal skin turgor.Extremities: Extremities exhibit normal ROM.Neuro: Oriented X 3.PROGRESS AND PROCEDURESCourse of Care: 14:32 Sep 10 2020. Evaluation after observation. (Discussed likely TMJ but will rx abxfor dental infection, pt needs to follow up with Dentist, return to the ED if develops a fever or facial swellingthat causes difficulty breathing). Patient co unseled in person regarding the patient's stable condition, diagnosis and need for follow-up. Patient agrees with plan of care. 14:33 Sep 10 2020. Disposition: Discharged home in good and improved condition (14:33 Sep 10 2020).CLINICAL IMPRESSION Right sided and left sided acute temporomandibular joint syndrome. Moderate dental pain.INSTRUCTIONS Warnings: Further evaluation is necessary. It is very important to follow up with a healthcare provider. GENERAL WARNINGS: Return or contact your physician immediately if your condition worsens or changes unexpectedly, if not improving as expected, or if other problems arise. Specifically return if pain or fever worsens. Your Current Medications: Your current home medications have been reviewed. 3 Clinical Report - Physicians/Mid Levels [facility] Emergency Department [address] [place] [address] Phone #: ext- [phone] 09/10/2020 14:10 Patient: DIANA WINKLER Sex: M : 2000 Age: 20y CONTINUE TAKING THE FOLLOWING MEDICATIONS: Ibuprofen Oral. oxyCODONE- Acetaminophen Oral : Tablet 5-325 mg, prn, was given for wisdom teeth. Prescription Medications: clindamycin HCl 300 mg capsule Take 1 capsule four times a day for 10 days -- Dispense 40 capsule. Refills: 0. Substitution permitted. Pharmacy - [facility] - [id number] ; [place] [address]. . Follow-up: Follow up with a specialist Dentist Sunday. Call for an appointment. Reason for referral: evaluation and treatment. Summary of care provided to patient. Understanding of the discharge instructions verbalized by patient.(Electronically signed by HUSSAIN Maradiaga 09/10/2020 21:33) Name Value Range Interpretation Code Description Data Maria Eugenia rce(s) Supporting Document(s) ID Date Data Source [id number] 09/04/2020 11:39:00 PM EST [facility] 1 OrderSheet [facility] Emergency Department [address] [place] [address] Phone #: ext- [phone] 09/04/2020 23:39 Patient: DIANA WINKLER Sex: M : 2000 Age: 20yWEIGHT:77.1 kg (S) HEIGHT:69 inches (S) BMI:25.1ALLERGIES: No Known Drug AllergyCHIEF COMPLAINT: hemorrhoidsDIAGNOSIS: Constipation, Disorder characterized by feverLAB ORDERSOrder Description Priority Entered Acknowledged InitialedCMP STAT 00:01 09/05/2020 00:39 Jacques Daniel RN Physician;CBC w Diff STAT 00:01 09/05/2020 00:39 Jacques Daniel RN Physician;Blood Culture STAT 00:01 09/05/2020 00:39 [id number] X2 (Sched Naldo Daniel RN00:01 09/05/2020) Physician;Blood Culture STAT 00:01 09/05/2020 00:39 [id number] X2 (Sched Naldo Daniel RN00:11 09/05/2020) Physician;Urinalysis (Clean STAT 00:01 09/05/2020 01:47 WilliamenCatch) Naldo Daniel RN Physician;Lipase STAT 00:01 09/05/2020 00:39 Jacques Daniel RN Physician;Lactic Acid STAT 00:01 09/05/2020 00:39 Jacques Daniel RN Physician;Urine Drug Screen STAT 01:17 09/05/2020 01:47 Jacques Daniel RN Physician;Influenza Nasal A B STAT 01:33 09/05/2020 02:33 Jacques Daniel RN Physician ;COVID-19 CAH STAT 01:34 09/05/2020 02:33 Jacques(Symptomatic as Naldo Daniel RNDefined by CDC) Physician;(09/01/2020) (First 2 OrderSheet [facility] Emergency Department [address] [place] [address] Phone #: [phone] pba- [phone] 09/04/2020 23:39 Patient: DIANA WINKLER Sex: M : 2000 Age: 20yTest) (NotHospitalized) (Not) (NotResident inCongregate CareSetting) (NotEmployed inHealthcare Setting) NOTES: High feverDIAGNOSTIC STUDY ORDERSOrder Description Priority Entered Acknowledged InitialedCT Abd Pelv W/Oral STAT 00:01 09/05/2020 00:39 StevenContrast Only Naldo Daniel RN(Oxygen?(No)) Physician;(IV?(No)) Reason for Study: Abdominal Pain, ConstipationMEDICATION/IV/DRIP/FLUID ORDERSOrder Description Priority Entered Acknowledged InitialedAcetaminophen 1 g 00:00 09/05/2020 00:40 StevenPO X1 dose: 1000 Naldo Daniel RNmg (NOW x1) Physician;Toradol IM 60 mg 00:01 09/05/2020 00:40 Jacques(NOW) Naldo Daniel RN Physician;Miralax 17 grams 02:36 09/05/2020 02:49 StevenPO X1 dose: 17 gm Naldo Daniel RN(NOW x1) Physician;- (THM Miralax 2 02:38 09/05/2020 02:46 Stevenpackages : Mix Naldo Daniel RNone pack in water Physician;once a day anddrink to relieveconstipation)GENERAL ORDERSOrder Description Priority Entered Acknowledged Initialed[Electronically signed by Jacques Daniel RN (03:37 09/05/2020)][Electronically signed by Rehana Arciniega M.D. (08:37 09/08/2020)][Electronically signed by Rehana Arciniega M.D. (08:37 09/08/2020)][Electronically locked by Jacques Daniel RN (03:37 09/05/2020)] 3 OrderSheet [facility] Emergency Department [address] [place] [address] Phone #: ext- [phone] 09/04/2020 23:39 Patient: DIANA WINKLER Sex: M : 2000 Age: 20y Name Value Range Interpretation Code Description Data Maria Eugenia rce(s) Supporting Document(s) ID Date Data Source [id number] 09/04/2020 11:39:00 PM EST [facility] 1 Medication Reconciliation Report [facility] Emergency Department [address] [place] [address] Phone #: ext- [phone] 09/04/2020 23:39 Patient: DIANA WINKLER Sex: M : 2000 Age: 20yWeight: 77.1 kgHeight/Length: 69 in.BMI: 25.1ALLERGIES: No Known Drug AllergyThe patient's Home Medications are listed below:THE FOLLOWING MEDICATIONS NEED TO BE RECONCILED: Mortin 800mg, 4x a day oxyCODONE HCl Oral 5 mg, q6hThe source(s) of the original Home Medication information:Not obtained.The following Medications were given to the patient in the Emergency Department:Acetaminophen [PO] PO 1000 mg, administered: 00:40 09/05/2020Toradol [IM] IM 60 mg, administered: 00:40 09/05/2020Miralax PO 2 packs, administered: 02:46 09/05/2020MiraLax [PO] PO 17 gm, administered: 02:49 09/05/2020The following Medications were prescribed to the patient:Metamucil (with sugar) 3.4 gram oral powder packet Take 1 scoop once a day for 7 days -- for severeconstipation. Dispense 1 can. Refills: 0. Substitution permitted.Pharmacy - [facility] - [address] ; [place] [address]. .Miralax 17 gram oral powder packet Take 1 packet once a day as needed for 7 days -- for severeconstipation. Dispense 7 packet. Refills: 0. Substitution permitted.Pharmacy - [address] ; [place] [address]. . 2 Medication Reconciliation Report [facility] Emergency Department [address] [place] [address] Phone #: ext- [phone] 09/04/2020 23:39 Patient: DIANA WINKLER Sex: M : 2000 Age: 20yFleet Enema Extra 19 gram-7 gram/197 mL Insert 1 bottle once a day as needed for 7 days -- for severeconstipation. Dispense 7 bottle. Refills: 0. Substitution permitted.Pharmacy - [address] ; [place] [address]. .ibuprofen 800 mg tablet Take 1 tablet every eight hours as needed for 10 days -- for pain or fever.Dispense 30 tablet. Refills: 0. Substitution permitted.Pharmacy - [facility] [id number] [place] [address] ; [place] [address]. .clindamycin HCl 300 mg capsule Take 1 capsule every six hours for 7 days -- to prevent dental infectionat extraction sites. Dispense 28 capsule. Refills: 0. Substitution permitted.[facility] [id number] [place] [address] ; [place] [address]. . -- Naldo Bosch, Physician Name Value Range Interpretation Code Description Data Maria Eugenia rce(s) Supporting Document(s) ID Date Data Source [id number] 09/04/2020 11:39:00 PM [facility] 1 Medication Administration Record [facility] Emergency Department [address] [place] [address] Phone #: ext- [phone] 09/04/2020 23:39 Patient: DIANA WINKLER Sex: M : 2000 Age: 20yWeight: 77.1 kgHeight/Length: 69 inBMI: 25.1ALLERGIES: No Known Drug Allergy Date/Time Medication Administered Medication OrderedGiven ACETAMINOPHEN [PO] Acetaminophen 1 g PO X1 dose:00:40 09/05/2020 Dose: 1000 mg Tablets PO 1000 mg (NOW x1)Jacques Daniel RNGiven TORADOL [IM] (KETOROLAC Toradol IM 60 mg (NOW)00:40 09/05/2020 TROMETHAMINE)Jacques Daniel RN Dose: 60 mg IMGiven MIRALAX [PO] (POLYETHYLENE Miralax 17 grams PO X1 dose: 1702:49 09/05/2020 GLYCOL 3350) gm (NOW x1)Jacques Daniel RN Dose: 17 gm POGiven Miralax * - (THM Miralax 2 packages : Mix02:46 09/05/2020 Dose: 2 packs * PO one pack in water once a day Lucas Daniel RN drink to relieve constipation) Name Value Range Interpretation Code Description Data Maria Eugenia rce(s) Supporting Document(s) ID Date Data Source [id number] 09/04/2020 11:39:00 PM [facility] 1 General Instructions [facility] Emergency Department [address] [place] [address] Phone #: ext- [phone] 09/04/2020 23:39 Patient: DIANA WINKLER Sex: M : 2000 Age: 20yAcute febrile illnessConstipation(Recent multiple dental extractions).INSTRUCTIONSDo not work for seven days.Drink plenty of fluids. No alcohol.(Do not take Oxycodone since it causes severe constipation).Warnings: Further evaluation is necessary.GENERAL WARNINGS: Return or contact your physician immediately if your condition worsens orchanges unexpectedly, if not improving as expected, or if other problems arise.Prescription Medications:Metamucil (with sugar) 3.4 gram oral powder packet Take 1 scoop once a day for 7 days -- for severeconstipation. Dispense 1 can. Refills: 0. Substitution permitted.Pharmacy - [facility] [employer] [place] [address] ; [place] [address]. FaxNumber: .Miralax 17 gram oral powder packet Take 1 packet once a day as needed for 7 days -- for severeconstipation. Dispense 7 packet. Refills: 0. Substitution pe rmitted.Pharmacy - [facility] [employer] [facility] ; [place] [address]. .Fleet Enema Extra 19 gram- 7 gram/197 mL Insert 1 bottle once a day as needed for 7 days -- for severeconstipation. Dispense 7 bottle. Refills: 0. Substitution permitted.Pharmacy - [facility] [employer] [facility] ; [place] [address]. .ibuprofen 800 mg tablet Take 1 tablet every eight hours as needed for 10 days -- for pain or fever.Dispense 30 tablet. Refills: 0. Substitution permitted.Pharmacy - [facility] - [address] ; [place] [address]. .clindamycin HCl 300 mg capsule Take 1 capsule every six hours for 7 days -- to prevent dental infectionat extraction sites. Dispense 28 capsule. Refills: 0. Substitution permitted.Pharmacy - [facility] - [address] ; [place] [address]. Phone: [phone] General Instructions [facility] Emergency Department [address] [place] [address] Phone #: ext- [phone] 09/04/2020 23:39 Patient: DIANA WINKLER Sex: M : 2000 Age: [id number] .Understanding of the discharge instructions verbalized by patient.Follow-[facility] with: [facility] , , , [address], , [place], [address] Follow up in two days if not better. Call for an appointment. Reason for referral: evaluation, treatment andSevere constipation / fecal impaction / Febrile illness. ADDITIONAL INFORMATIONConstipation (Adult)Constipation means that you have bowel movements that are less frequent than usual. Stools oftenbecome very hard and difficult to pass.Constipation is very common. At some point in life, it affects almost everyone. Since everyone'sbowel habits are different, what is constipation to one person may not be to another. Your healthcareprovider may do tests to diagnose constipation. It depends on what he or she finds when evaluatingyou.Symptoms of constipation include: Abdominal pain Bloating Vomiting Painful bowel movements Itching, swelling, bleeding, or pain around the anus 3 General Instructions [facility] Emergency Department [address] [place] [address] Phone #: ext- [phone] 09/04/2020 23:39 Patient: DIANA WINKLER Sex: M : 2000 Age: 20yCausesConstipation can have many causes. These include: Diet low in fiber Too much dairy Not drinking enough liquids Lack of exercise or physical activity (especially true for older adults) Changes in lifestyle or daily routine, including , aging, work, and travel Frequent use or misuse of laxatives Ignoring the urge to have a bowel movement or delaying it until later Medicines, such as certain prescription pain medicines, iron supplements, antacids, certain antidepressants, and calcium supplements Diseases like irritable bowel syndrome, bowel obstructions, stroke, diabetes, thyroid disease, Parkinson disease, hemorrhoids, and colon cancerComplicationsPotential complications of constipation can include: Hemorrhoids Rectal bleeding from hemorrhoids or anal fissures (skin tears) Hernias Dependency on laxatives Chronic constipation Fecal impaction, a severe form of constipation in which a large amount of hard stool is in your rectum that you can't pass Bowel obstruction or perforationHome careAll treatment should be done after talking wi th your healthcare provider. This is especially true if youhave another medical problems, are taking prescription medicines, or are an older adult. Treatmentmost often involves lifestyle changes. You may also need medicines. Your healthcare provider will tellyou which will work best for you. Follow the advice below to help avoid this problem in the future. 4 General Instructions [facility] Emergency Department [address] [place] [address] Phone #: ext- [phone] 09/04/2020 23:39 Patient: DIANA WINKLER Sex: M : 2000 Age: 20yLifestyle changesThese lifestyle changes can help prevent constipation: Diet. Eat a high-fiber diet, with fresh fruit and vegetables, and reduce dairy intake, meats, and processed foods Fluids. It's important to get enough fluids each day. Drink plenty of water when you eat more fiber. If you are on diet that limits the amount of fluid you can have, talk about this with your healthcare provider. Regular exercise. Check with your healthcare provider first.MedicinesTake any medicines as directed. Some laxatives are safe to use only every now and then. Others canbe taken on a regular basis. While laxatives don't cause bowel dependence, they are treating thesymptoms. So your constipation may return if you don't make other changes. Talk with yourhealthcare provider or pharmacist if you have questions.Prescription pain medicines can cause constipation. If you are taking this kind of medicine, ask yourhealthcare provider if you should also take a stool softener.Medicines you may take to treat constipation include: Fiber supplements Stool softeners Laxatives Enemas Rectal suppositoriesFollow-up careFollow up with your healthcare provider if symptoms don't get better in the next few days. You mayneed to have more tests or see a specialist.Call [phone] if any of these occur: Trouble breathing Stiff, rigid abdomen that is severely painful to touch 5 General Instructions [facility] Emergency Department [address] [place] [address] Phone #: ext- [phone] 09/04/2020 23:39 Patient: DIANA WINKLER Sex: M : 2000 Age: 20y Confusion Fainting or loss of consciousness Rapid heart rate Chest painWhen to seek medical adviceCall your healthcare provider right away if any of these occur: Fever of 100.4F (38C) or higher, or as directed by your healthcare provider Failure to resume normal bowel movements Pain in your abdomen or back gets worse Nausea or vomiting Swelling in your abdomen Blood in the stool Black, tarry stool Involuntary weight loss Weakness [id number] [employer]. [address] [place] [address], [place] [address]. All rights reserved. This information is not intended as asubstitute for professional medical care. Always follow your healthcare professional's instructions.Treated Fecal ImpactionFecal impaction is a severe form of constipation. It means you have a large amount of hard stoolin your rectum that you can't pass. Although your impaction has been relieved, you may need tocontinue treatment at home. Your healthcare provider will tell you what to do. Follow the advice belowto help avoid this problem in the future.Fecal impaction can have many causes. Many of them are similar to the causes of constipation. Theyinclude: Diet low in fiber Too many dairy products and too much processed food Not drinking enough liquids 6 General Instructions [facility] Emergency Department [address] [place] [address] Phone #: ext- [phone] 09/04/2020 23:39 Patient: DIANA WINKLER Sex: M : 2000 Age: 20y Lack of exercise or physical activity Stress, depression Changes in daily routines Loss of body fluids because of vomiting or diarrhea Ignoring the urge to have a bowel movement or delaying until later Medicines like pre scription pain medicines, especially narcotics, iron supplements, antacids, certain antidepressants, and calcium supplements An underlying illnessHome careTake any medicines as directed. It is no longer thought that laxatives can cause damage to theintestines. However, some are better choices for occasional and long-term use. Talk with yourhealthcare provider or pharmacist if you have questions.General care Prescription pain medicines can cause constipation. If your healthcare provider prescribes pain medicines, ask whether you should also take a stool softener. Certain laxatives are specially formulated to be used by people who take pain medicine on a long-term basis. A diet high in fiber with plenty of fluids helps to maintain regular, soft bowel movements. These foods are good sources of dietary fiber: o Cereals and breads, such as whole-grain cereal with bran, oatmeal, rolled oats, and whole- grain breads o Fruits, both fresh and dried, including raisins, prunes, apricots, berries, and figs o Fresh vegetables, especially peas, broccoli, brussels sprouts, winter squash, green beans, cauliflower, kelley beans, and carrots o Popcorn and brown rice Drink plenty of water when you increase the amount of fiber you eat.Follow-up careFollow up with your healthcare provider if your symptoms don't get better in the next few days, or asadvised. You may need more tests or to see a specialist. 7 General Instructions [facility] Emergency Department [address] [place] [address] Phone #: [phone] ext- [phone] 09/04/2020 23:39 Patient: DIANA WINKLER Sex: M : 2000 Age: 20yCall 911Call 911 if any of these occur: Stiff, rigid abdomen that is severely painful to touch, or when you move Trouble breathing Chest pain Confusion Fainting or loss of consciousness Rapid heart rateWhen to seek medical adviceCall your heal [facility] provider right away if any of these occur: Fever of 100.4F (38C) or higher, or as directed by your healthcare provider You still don't have normal bowel movements Abdominal or back pain gets worse Vomiting Abdominal swelling Blood in the stool, or black, tarry school Weakness, dizziness, or fainting Unexpected vaginal bleeding Weight loss [id number] [employer]. [address] [place] [address], [place] [address]. All rights reserved. This information is not intended as asubstitute for professional medical care. Always follow your healthcare professional's instructions.Febrile Illness with Uncertain Cause (Adult)You have a fever, but the cause is unknown. A fever is the body's natural reaction to an illness suchas infection due to a virus or bacteria. Sometimes other conditions such as cancer or immunediseases can cause fever. This might be more likely if your fever has lasted for more than a week or2. In most cases, the higher temperature itself isn't harmful. It actually helps the body fight infections.A fever doesn't need to be treated unless you feel very uncomfortable. 8 General Instructions [facility] Emergency Department [address] [place] [address] Phone #: ext- [phone] 09/04/2020 23:39 Patient: DIANA WINKLER Sex: M : 2000 Age: 20ySometimes a fever can be an early sign of a more serious infection. So follow up if your conditiongets worse.Home careUnless given other instructions by your healthcare provider, follow these guidelines when caring foryourself at home.General care If your symptoms are not severe, rest at home for the first 2 to 3 days. When you are active again, don't let yourself get too tired. For your overall health, don't smoke. Also stay away from secondhand smoke. You may not feel like eating too much. So a light diet is fine. Stay hydrated by drinking 6 to 8 glasses of fluids per day. This includes water, soft drinks, sports drinks, juices, tea, or soup. If you have congestion, extra fluids will help loosen secretions in the nose and lungs.Medicines You can take acetaminophen or ibuprofen for pain or to lower your temperature, unless you were given a different medicine to use. If you have chronic liver or kidney disease or have ever had a stomach ulcer or gastrointestinal bleeding, talk with your healthcare provider before using these medicines. Also talk with your provider if you are taking medicine to prevent blood clots. Don't give aspirin to anyone younger than age 19 unless directed by the provider. It may cause a serious illness called Mckenzie syndrome. This most often affects the brain and liver. If you were given antibiotics for an infection, take them until they are used up, or your healthcare provider tells you to stop. It's important to finish the antibiotics even if you feel better. This is to make sure the infection has cleared. Antibiotics are not often given for a viral infection or a fever with an unknown cause. Jinm-foh-dtliazo medicines will not shorten the length of the illness. But they may be help with symptoms. These include cough, sore throat, or nasal and sinus congestion. Ask your pharmacist for product suggestions. Don't use decongestants if you have high blood pressure.Follow-up careFollow up with your healthcare provider, or as advised. If a culture or other lab tests were done, you will be told if your treatment needs to be changed. Call your healthcare provider as directed for the results. If X-rays, a CT scan, MRI, or an ultrasound were done, a specialist will review them. You will 9 General Instructions [facility] Emergency Department [address] [place] [address] Phone #: ext- [phone] 09/04/2020 23:39 Patient: DIANA WINKLER Sex: M : 2000 Age: 20y be told of any findings that may affect your care. Call your healthcare provider as directed for the results.Call [phone] any of these occur: Trouble breathing or swallowing, or wheezing Chest pain Confusion Extreme drowsiness or trouble waking up Fainting or loss of consciousness Fast heart rate Low blood pressure Vomiting blood, or large amounts of blood in stool SeizureWhen to get medical adviceCall your healthcare provider right away if any of these occur: Cough with lots of colored sputum (mucus) or blood in your sputum Severe headache Face, neck, throat, or ear pain Feeling drowsy Belly pain Repeated vomiting or diarrhea; bloody diarrhea Joint pain or a new rash Burning when urinating Fever of 100.4F (38C) or higher, or as directed by your provider Shaking chills Feeling weak or dizzy 10 General Instructions [facility] Emergency Department [address] [place] [address] Phone #: ext- [phone] 09/04/2020 23:39 Patient: DIANA WINKLER Sex: M : 2000 Age: 20y [id number] [employer]. [address] [place] [address]. All rights reserved. This information is not intended as asubstitute for professional medical care. Always follow your healthcare professional's instructions.Fever Control (Adult)A fever is a normal reaction of your body to an illness. The temperature itself usually isn't harmful. Itactually helps your body fight infections. You don't need to treat a fever unless you feel veryuncomfortable.Home careFollow these tips to take care of yourself at home: If you feel warm, check your temperature. Dress in light clothing. This will help you lose extra body heat through your skin. The fever will go up if you wear extra layers or wrap in blankets. Fever causes your body to lose water through evaporation. Drink plenty of fluids. These include water, juice, clear sodas, jermaine caroline, or lemonade.Fever medicinesYou can take acetaminophen every 4 to 6 hours if: You feel very uncomfortable Your oral temperature is 100.4F (38C) or higherIf you can't take or keep down oral medicine, ask your pharmacist for acetaminophen suppositories.You don't need a prescription for these.If the fever doesn't get better within 1 hour after you take acetaminophen, take ibuprofen. If thisworks, keep taking the ibuprofen every 6 to 8 hours.If you have chronic liver or kidney disease, talk with your healthcare provider before taking thesemedicines. Also talk with your provider if you ever had a stomach ulcer or GI (gastrointestinal)bleeding.If either medicine alone doesn't keep the fever down, you may switch off between the 2 medicinesevery 3 to 4 hours. But do this only if your healthcare provider has told you to. For example, takeibuprofen. Wait 3 hours. Then take acetaminophen. Wait 3 hours. Take ibuprofen, and so on. Followyour provider's instructions exactly.Don't give aspirin to anyone younger than age 19 who is ill with a fever. Aspirin can cause seriousside effects such as liver damage and Mckenzie syndrome. Although rare, Mckenzie syndrome is a very 11 General Instructions [facility] Emergency Department [address] [place] [address] Phone #: ext- [phone] 09/04/2020 23:39 Patient: DIANA WINKLER Sex: M : 2000 Age: 20yserious illness usually found in children younger than age 15. The syndrome is closely linked to theuse of aspirin or aspirin-containing medicine during viral infection.Follow-up careFollow up with your healthcare provider if you don't get better after 48 hours.When to seek medical adviceCall your healthcare provider right away if any of these occur: Fever, as directed by your healthcare provider, or: o Fever of 100.4F (38C) or above lasting for 24 to 48 hours o Fever lasting more than 3 days, even without other symptoms o Fever that happens after visiting a foreign country o Fever that happens within a month after visiting a country with malaria. Malaria is a serious illness. A fever can still be malaria even if you took medicine to prevent it. The medicine does not work in all cases o If you experience unexplained fever and your immune system is compromised such as by immune suppressing drugs, stem cell or organ transplant, HIV/AIDS, or cancer Confusion or trouble thinking Headache or stiff neck Flat, small, purplish red spots on your skin Low blood pressure Fast heart rate Fast (rapid) breathing You are You just had surgery, another medical procedure, or were just discharged from the hospital Use of medicines that suppress the immune system (immunosuppressants). These include steroids like prednisone, cancer medicines, and organ transplant rejection medicines. If you are not sure about whether your medicines suppress your immune system, ask your healthcare provider.Call 911 12 General Instructions [facility] Emergency Department [address] [place] [address] Phone #: ext- [phone] 09/04/2020 23:39 --- Patient: DIANA WINKLER Sex: M : 2000 Age: 20ySomeone should call 911 if you: Are having trouble breathing or shortness of breath Are unresponsiveImportant reminderCall your healthcare provider if you get a fever after visiting a place where infectious diseases arecommon. Many people machine pecan picker a cold or other virus while traveling. This usually goes away without aproblem. But, some places have more serious diseases. Fever with certain other symptoms maymean you have a serious illness. Symptoms to watch for include diarrhea, skin rashes, insect bites,and skin boils, or infections. Your provider may ask you: What you did on your trip How long you were there Where you travelled and where you stayed (hotel, lime house, tent) What you ate and drank If you were bitten by insects or other bugs If you swam in freshwater If you had sex or got a tattoo or piercing while you were thereCheck the CDC to get more information about specific infectious diseases in the areas you havetraveled. [phone] [employer]. [address] [place] [address], [place] [address]. All rights reserved. This information is not intended as asubstitute for professional medical care. Always follow your healthcare professional's instructions. You have been given the following additional information: Constipation (Adult) Fecal Impaction, Treated Febrile Illness, Uncertain Cause (Adult) Fever Control (Adult) Do not work for seven days. 13 General Instructions [facility] Emergency Department [address] [place] [address] Phone #: ext- [phone] 09/04/2020 23:39 Patient: DIANA WINKLER Sex: M : 2000 Age: 20y(Document created by Naldo Bosch)(Administratively locked by Rehana Arciniega M.D. 09/08/2020 07:57) Name Value Range Interpretation Code Description Data Maria Eugenia rce(s) Supporting Document(s) ID Date Data Source [id number] 09/04/2020 11:39:00 PM EST [facility] 1 Clinical Report - Nurses [facility] Emergency Department [address] [place] [address] Phone #: ext [phone] 09/04/2020 23:39 Patient: DIANA WINKLER Sex: M : 2000 Age: 20yTRIAGEArrived by EMS. Historian: patient.Triage time: 23:42 09/04/2020. Acuity: LEVEL 4.Chief Complaint: (Rectal pain).This started today. ( started this morning with pain in rectal area and pain has become much worse. Hasnot had a bowel movement for 3 days). He has had fever.Treatment INVENTORY CHECKER:None.SEPSIS SCREEN: SIRS SCREEN NEGATIVE. SEPSIS SCREEN NEGATIVE. No suspected or confirmedsigns of infection present. --23:49 09/04/20 Jacques Daniel RN23:42 09/04/20. BP: 116/51 (regular adult cuff) taken on the left arm, via an automated monitor, whilelying. MAP: 72. HR: 83 (regular, normal rate and strong). RR: 18 (regular, unlabored and normal). D5asdbvtwroa: 100% on room air. Temp: 102.2 F (oral). Pain level now: 06/05. --23:49 09/04/20 Jacques Daniel RN.Weight: 77.1 kg stated. Height/Length: 69 inches Per Patient. BMI: 25.1. --23:48 09/04/20 Jacques Daniel RN.MedicationsMortin 800mg, 4x a day. --23:45 09/04/20 Jacques Daniel RN oxyCODONE HCl Oral 5 mg, q6h. --23:45 09/04/20 Jacques Daniel RN.AllergiesNo Known Drug Allergy. --23:45 09/04/20 Jacques Daniel RN.PROBLEMS:Allergic Rhinitis. --23:46 09/04/20 Jacques Daniel RN.HistoryPAST MEDICAL HX: Immunizations: up-to-date.SURGERY HX: ( 4 wisdom teeth removed on sunday).SOCIAL HX: Never smoker. No alcohol use or drug use. He was offered HIV testing but declined andhepatitis C testing but declined. He has not traveled outside the [place]Infectious disease exposure: No infectious disease exposure. 2 Clinical Report - Nurses [facility] Emergency Department [address] [place] [address] Phone #: ext- [phone] 09/04/2020 23:39 Patient: DIANA WINKLER Sex: M : 2000 Age: 20y SELF HARM ASSESSMENT: Self harm assessment was performed. The patient answered "no" to the question(s) "Have you recently felt down, depressed, or hopeless?", "Do you have thoughts of harming or killing yourself?", "Do you have a plan for harming or killing yourself?", "Have you recently had thoughts about harming or killing others?", "Do you have any dangerous items in your possession?", "Have you noticed less interest or pleasure in doing things?", "Are you here because you tried to hurt yourself?" and "Have you ever tried to hurt yourself before today?". ABUSE ASSESSMENT: No report of abuse. FALL RISK ASSESSMENT: Fall risk assessment completed. No risk factors identified. --23:49 09/04/20 Jacques Daniel RN. Assessment The patient states feels the same. --23:49 09/04/20 Jacques Daniel RN.PHYSICAL ASSESSMENTAmbulatory to room.GENERAL / NEURO / PSYCH: Alert. Oriented X 4. Appears in pain.HEENT: Pupils equal, round and reactive to light. No facial asymmetry noted. Mucous membranes arepink.RESPIRATORY: Respirations not labored. Chest nontender. Breath sounds within normal limits.CVS: Capillary refill less than 2 seconds. Pulses within normal limits.GI / : Abdomen soft and nontender and normal bowel sounds.SKIN: Skin intact. Skin is warm and dry. Normal skin turgor. --23:50 09/04/20 Jacques Daniel RN.NURSING PROGRESS NOTESPatient gowned. Reassurance given to the patient. Call light placed in reach. Bed placed in lowestposition. Brakes of bed on. Patient ready for evaluation- ED physician notified. --23:50 09/04/20 KIA Quinonez 00:40 09/05/2020 Acetaminophen PO Tablets 1000 mg given. Allergies verified and confirmed 5 rights. Information reviewed with patient including reason for taking this medication, signs of allergic reaction and precautions. Verbalizes understanding. --00:40 09/05/20 Jacques Daniel RN 00:40 09/05/2020 Toradol (Ketorolac Tromethamine) IM 60 mg given. Given in the left deltoid. Allergies verified and confirmed 5 rights. Information reviewed with patient including reason for taking this medication, signs of allergic reaction and precautions. Verbalizes understanding. --00:40 09/05/20 Jacques Daniel RN 01:07 09/05/20. Temp: 100.4 F (oral). --01:07 09/05/20 Jacques Daniel RN Patient ID band checked for patient name and birthdate: patient confirmed. Flu swab obtained by RN via nasal swab. Labeled in the presence of the patient and sent to lab. Patient ID band checked for patient 3 Clinical Report - Nurses [facility] Department [address] [place] [address] Phone #: ext- [phone] 09/04/2020 23:39 Patient: DIANA WINKLER Sex: M : 2000 Age: 20y name and birthdate. COVID-19 specimen obtained by RN via nasopharyngeal swab. Labeled in the presence of the patient and sent to lab. --01:58 09/05/20 Jacques Daniel RN 02:46 09/05/2020 Miralax * PO 2 packs Mix one pack with water and drink when you get home and repeat in the morning. Mix according to label instructions --02:46 09/05/20 Jacques Daniel RN 02:49 09/05/2020 MiraLax (Polyethylene Glycol 3350) PO 17 gm given. Allergies verified and confirmed 5 rights. Information reviewed with patient including reason for taking this medication, signs of allergic reaction and precautions. Verbalizes understanding. --02:49 09/05/20 Jacques Daniel RN.DISPOSITION / DISCHARGE Elisabeth Coma Scale: 15- eyes open- spontaneous (4); best verbal response- oriented (5); best motor response- obeys commands (6). Condition at departure: improved. No learning barriers present. Discharge instructions provided and reviewed with the patient. Reviewed medication(s) side effects, precautions, dosing and course information. Prescription(s) sent electronically to pharmacy. Reviewed referral to family practice for followup. Reviewed need for increased fluid intake. Work note given (1 week off). Patient verbalized understanding. Written instructions provided in [place]. The patient was discharged home and accompanied by stainless steel finisher. He left ambulatory and via private vehicle. Manager Care driving. --02:48 09/05/20 Jacques Daniel RN 02:46 09/05/20. BP: 116/72 (regular adult cuff) taken on the right arm, via an automated monitor, while lying. MAP: 86. HR: 70 (regular, normal rate and strong). RR: 16 (regular, unlabored and normal). O2 saturation: 100% on room air. Temp: 98.6 F (oral). Pain level now: 11/03. --02:48 09/05/20 Jacques Daniel RN Departure time: 03:36 09/05/2020. --03:37 09/05/20 Jacques Daniel RN.Locked/Released at 09/05/2020 03:37 by Jacques Daniel RN Name Value Range Interpretation Code Description Data Maria Eugenia rce(s) Supporting Document(s) ID Date Data Source [id number] 09/04/2020 11:39:00 PM [facility] 1 Clinical Report - Physicians/Mid Levels [facility] Emergency Department [address] [place] [address] Phone #: ext- [phone] 09/04/2020 23:39 Patient: DIANA WINKLER Sex: M : 2000 Age: 20y Time Seen: 23:41 09/04/2020. Arrived- By ambulance. Historian- EMS personnel. Disposition decision: 02:31 09/05/2020.HISTORY OF PRESENT ILLNESS Chief Complaint: HEMORRHOIDS. This started today and has been moderate. (Pt. has not been able to have BM for 3 days and has been on strong pain meds for the last 4 days after a dental procedure.). Is still present and worsening. It was abrupt in onset and has been waxing/waning. The patient has not had dark stools, rectal bleeding or hard stools. He has had rectal pain, constipation and moderate, crampy, colicky, aching abdominal pain. The pain is described as generalized. No nausea, vomiting or diarrhea. No recent travel. No known contact with a sick individual. Similar symptoms previously. (for 4 days). Recent medical care: The patient was seen recently at another facility in the office. ( Had dental extraction 4 days ago and now cannot have BM).REVIEW OF SYSTEMSNo dizziness, fainting episodes, weakness, blurred vision or sore throat. No epistaxis, cough, difficultybreathing, chest pain or hematuria. No skin rash, enlarged lymph nodes or joint pain. The patient hashad fever and chills.PAST HISTORYPast history not negative. See nurses notes. Other disease. Allergic rhinitis. Surgeries: (Recent dental extraction (4 wisdom teeth)).SOCIAL HISTORYNever smoker. No alcohol use or drug use. No recent travel.ADDITIONAL NOTESThe nursing notes have been reviewed with agreement regarding the chief complaint, HPI, ROS, PMH andpatient medications and allergies.PHYSICAL EXAMVital Signs: 09/04/2020 23:42 BP: lying 116/51. MAP: 72. HR: 83. RR: 18. O2 saturation: 100% on roomair. Temp: 102.2 F. Pain level now: 06/05. Have been reviewed and appear to be correct. Bloodpressure normal. Heart rate normal. Respiratory rate normal. Febrile. Oxygen saturation normal.Appearance: Alert. Oriented X3. Anxious. Appears to be in pain. Patient in moderate distress. Indistress.Eyes: Pupils equal, round and reactive to light. Eyes normal inspection. 2 Clinical Report - Physicians/Mid Levels [facility] Emergency Department [address] [place] [address] Phone #: ext- [phone] 09/04/2020 23:39 Patient: DIANA WINKLER Sex: M : 2000 Age: 20y ENT: Nose normal. Pharynx normal. Neck: Normal inspection. Neck supple. CVS: Normal heart rate and rhythm. Heart sounds normal. Pulses normal. Respiratory: No respiratory distress. Painless inspiration. Breath sounds normal. Abdomen: Soft. Mild tenderness diffusely. Bowel sounds normal. No organomegaly. No mass. Tenderness present. Back: Normal inspection. Rectal: Rectal exam normal. (No visible blood or hemorrhoids). Skin: Skin warm and dry. Normal skin color. No rash. Normal skin turgor. Extremities: Extremities exhibit normal ROM. No lower extremity edema. Neuro: Oriented X 3. No motor deficit. No sensory deficit.LABS, X-RAYS, AND EKGLaboratory Tests: Laboratory tests have been ordered, with results reviewed and considered in themedical decision making process. COVID-19 CAH: (MAURICIO: 09/05/2020 01:53) ( [facility] [place] 09/05/[place] 02:27) Final results Test Result Flag Units (Reference) COVID-19 NOT DETECTED COVID-19 REENTER NOT DETECTED { PROCEDURAL CONTROL VALID KIT LOT # _[id number] 09/05/20.AB . KIT EXP DATE _85-17-07 09/05/207.AB . NORMAL RA NGE IS NOT DETECTEDNEGATIVE RESULTS SHOULD BE TREATED PRESUMPTIVE AND, IF INCONSISTENT WITHCLINICAL SIGNS AND SYMPTOMS OR NECESSARY FOR PATIENT MANAGEMENT, SHOULD BETESTED WITH DIFFERENT AUTHORIZED OR CLEARED MOLECULAR TESTS. NEGATIVE RESULTSDO NOT PRECLUDE SARS-CoV-2 INFECTION AND SHOULD NOT BE USED THE SOLE BASISFOR PATIENT MANAGEMENT DECISIONS. Influenza Nasal A B: (MAURICIO: 09/05/2020 01:53) ( [facility] [place] 09/05/2020 02:26) Final results Test Result Flag Units (Reference) INFLUENZA A NEGATIVE (NORMAL: NEGAT INFLUENZA B NEGATIVE (NORMAL: NEGAT INFLUENZA A REENTER NEGATIVE (NORMAL: NEGAT INFLUENZA B REENTER NEGATIVE (NORMAL: NEGAT PROCEDURAL CONTROL VALID KIT LOT # _[id number] 09/05/206.AB . KIT EXP DATE _82-72-20 09/05/206.AB .The Influenza A utilizing an isothermal nucleic acid amplification technology for thequalitative detection of influenza A and B viral RNA.Negative results do not preclude influenza virus infection and should not beused as the sole basis for diagnosis, treatment or other patient managementdecisions. Drug Screen-Urine: (MAURICIO: 09/05/2020 01:26) ( MsgRcvd 09/05/2020 02:13) Final results Test Result Flag Units (Reference) DRUG SCREEN URINE CORRECTED REPORT URINE DRUG SCREEN AMPHETAMINES NEGATIVE (NORMAL: NEGAT BARBITURATES NEGATIVE (NORMAL: NEGAT BENZO NEGATIVE (NORMAL: NEGAT COCAINE NEGATIVE (NORMAL: NEGAT THC NEGATIVE (NORMAL: NEGAT OPIATES NEGATIVE (NORMAL: NEGAT PCP NEGATIVE (NORMAL: NEGAT \\BLDo\\URINE DRUG SCREEN INTERPRETATION\\BLDx\\ THE CUTOFFF LEVELS FOR 3 Clinical Report - Physicians/Mid Levels [facility] Emergency Department [address] [place] [address] Phone #: ext- [phone] 09/04/2020 23:39 Patient: DIANA WINKLER Sex: M : 2000 Age: 20yDETECTION ARE FOLLOWS: AMPHETAMINES 1000 ng/mlBARBITUARATES 200 ng/ml BENZODIAZEPINES 100 ng/mlTHC 50 ng/ml PHENCYCLIDINE 25 ng/mlOPIATES 300 ng/ml COCAINE 300 ng/mlALL POSITIVES ARE CONSIDERED PRESUMPTIVE POSITIVE CONFIRMATION WILL [facility] FOLLOWING RESULTS REPORTED IN ERROR am] AMPHETAMINESba] BARBITURATES bz] BENZO co] COCAINE tc] THCop] OPIATES pc] PCP { CORRECT NEGATIVECMP: (MAURICIO: 09/05/2020 00:15) ( MsgRcvd 09/05/2020 00:45) Final results Test Result Flag Units (Reference) COMPREHENSIVE METABOLIC PANEL COMPREHENSIVE METABOLIC PANEL SODIUM 138 mEq/L (134 - 153) POTASSIUM 3.7 mEq/L (3.6 - 5.0) CHLORIDE 100 mEq/L (98 - 107) CO2 29 MEQ/L (22 - 30) GLUCOSE 115 H MG/DL (65 - 110) BUN 13 MG/DL (7 - 21) CREATININE 1.0 MG/DL (0.7 - 1.5) BUN/CREAT 13 (8 - 27) TOTAL PROTEIN 6.9 G/DL (6.3 - 8.2) ALBUMIN 4.6 G/DL (3.9 - 5.0) GLOBULIN 2.3 L GM/DL (2.4 - 3.2) A/G RATIO 2.0 (0.8 - 2.0) CALCIUM 9.5 MG/DL (8.4 - 10.2) TOTAL BILI 0.7 MG/DL (0.2 - 1.3) ALKALINE PHOS 133 H U/L (38 - 126) SGOT/AST 31 U/L (5 - 40) SGPT/ALT 47 U/L (7 - 56) ANION GAP 9.0 mmol/L (8.0 - 16.0) AGE 20 yrs NON-AA GFR >60 mL/min AFR AMER GFR >60 mL/min Male GFR Interprentation 20-49 yrs >60 mL/min Iiqcef23-27 yrs >56 mL/min Normal 60-69 yrs >49 mL/min Normal 70-79yrs>42 mL/min Normal 80 and above >35 mL/min Normal Female GFRInterpretation 20-39 yrs >60 mL/min Normal 40-49 yrs >58 mL/minNormal 50-59 yrs >51 mL/min Normal 60-69 yrs >45 mL/min Vhfhur54-30 yrs >39 mL/min Normal 80 and above >32 mL/min NormalCBC w Diff: (MAURICIO: 09/05/2020 00:15) ( MsgRcvd 09/05/2020 00:31) Final results Test Result Flag Units * *(Reference) CBC W/AUTOMATED DIFF COMPLETE BLOOD COUNT WBC 8.0 10/uL (4.2 - 11.0) RBC 4.70 10/uL (4.50 - 6.30) HEMOGLOBIN 13.4 L g/dL (14.0 - 16.0) HEMATOCRIT 38.7 L % (41.0 - 51.0) MCV 82.3 fL (80.0 - 94.0) MCH 28.5 pg (27.0 - 34.0) MCHC 34.6 g/dL (31.0 - 36.0) RDW 11.9 % (11.5 - 14.8) PLATELETS 205 10/uL (150 - 450) MPV 9.7 fL (7.4 - 10.4) NEUT 75.2 % (37.0 - 80.0) 4 Clinical Report - Physicians/Mid Levels [facility] Emergency Department [address] [place] [address] Phone #: ext- [phone] 09/04/2020 23:39 Patient: DIANA WINKLER Sex: M : 2000 Age: 20y LYMPH 12.4 L % (25.0 - 40.0) MONO 11.0 H % (3.0 - 8.0) EOS 0.6 % (0.0 - 7.0) BASO 0.4 % (0.0 - 2.0) %IG 0.4 H % (0.0 - 0.0) %NRBC 0.0 % (0.0 - 0.0) #NEUT 6.01 10/uL (2.00 - 6.90) #LYMPH 0.99 10/uL (0.60 - 3.40) #MONO 0.88 10/uL (0.00 - 0.90) #EOS 0.05 10/uL (0.00 - 0.70) #BASO 0.03 10/uL (0.00 - 0.20) #IG 0.03 10/uL (0.00 - 0.10) #NRBC 0.00 10/uL (0.00 - 0.00) MANUAL DIFF NOT INDICATED RBC MORPH NOT INDICATEDUrinalysis: (MAURICIO: 09/05/2020 01:26) ( [facility] 09/05/2020 01:37) Final results Test Result Flag Units (Reference) URINALYSIS URINALYSIS SOURCE Clean Catch COLOR yellow (NORMAL: Yello CLARITY clear (NORMAL: Clear SPEC GRAVITY 1.015 (1.001 - 1.030 pH 5 (5 - 9) GLUCOSE NORM (NORMAL: Negat BILIRUBIN NEG (NORMAL: Negat KETONE NEG (NORMAL: Negat PROTEIN NEG (NORMAL: Negat NITRITE NEG (NORMAL: Negat BLOOD NEG (NORMAL: Negat LEUK EST NEG (NORMAL: Negat UROBILINOGEN NOR (less than 1.0 MICROSCOPIC Not IndicateLipase: (MAURICIO: 09/05/2020 00:15) ( [facility] 09/05/2020 00:44) Final results Test Result Flag Units (Reference) LIPASE 32 U/L (13 - 60)Lactic Acid: (MAURICIO: 09/05/2020 00:15) ( [facility] [place] 00:31) Final results Test Result Flag Units (Reference) LACTIC ACID 1.9 MMOL/L (0.2 - 2.2)CT Abd Pelv W/Oral Contrast Only: (MAURICIO: 09/05/2020 00:01) ( [facility] 09/05/2020 02:06) Finalresults Exam CT ABD //T// PELV W/ORAL ONLY [facility] [address] [place] [address] ---------NAME--------- NUMBER SEX AGE ADMIT DISC. XRAY# F/C TYPE MINOTTIBLANCO DIANA J [id number] M 09/04/20 [id number] E/R DATE OF : 2000 M/R# [id number] #: [id number] TR-03 LOCATION: TRANSCRIBED: 09/05/20 2:[address] ABD //T// PELV W/ORAL ONLY [id number] COMPLETED:09/05/20 1:29 DLA 1875 Reason(s): Abdominal Pain Constipation 5 Clinical Report - Physicians/[facility] Emergency Department [address] [place] [address] Phone #: ext- [phone] 09/04/2020 23:39 Patient: DIANA WINKLER Sex: M : 2000 Age: 20y PHYSICIAN: HIRO BR = R A D I O L O G Y R E P O R T PATIENT HISTORY:ACTUAL DOSE 563.5 mGy*cm rectal pain constipationPatient male. Verification of 2 patient identifiers performed.Time Out performed. correct body part and side all verified prior toexamination. Exam has been sent to [facility] Radiology - If further informationis needed, the number is . Report will be faxed to ED and/orXray. / Patient Information (DICOM Hx)EXAM: CT Abdomen and Pelvis Without IV contrastCLINICAL HISTORY:ACTUAL DOSE 563.5 mGy*cm rectal pain constipationTECHNIQUE: Axial computed tomography images of the abdomen and pelvis withoutintravenous contrast.CONTRAST: No IV contrast.COMPARISON:None provided.FINDINGS:LUNG BASES: The lung bases appear clear. No pleural effusions are seen.LIVER: Unremarkable.GALLBLADDER AND BILE DUCTS: The gallbladder appears within normal limits. Noradioopaque gallstones are seen. No biliary ductal dilatation is evident.PANCREAS: Unremarkable.SPLEEN: Unremarkable.ADRENAL GLANDS: Unremarkable.KIDNEYS, URETERS, AND BLADDER: The kidneys appear within normal limits. There isno hydronephrosis or hydroureter. No urinary calculi are seen.STOMACH AND BOWEL:Mildly prominent fecal material within the large bowel issuggestive of constipation.APPENDIX:The appendix is normal.PERITONEUM: No free fluid. No free air.LYMPH NODES: No lymphadenopathy is evident.REPRODUCTIVE: Unremarkable as visualized.VASCULATURE: No evidence of abdominal aortic aneurysm.BONES: No aggressive appearing osseous lesion. No acute osseous pathologyevident.IMPRESSION:1. Mildly prominent fecal material within the large bowel is suggestive of 6 Clinical Report - Physicians/Mid Levels [facility] Emergency Department [address] [place] [address] Phone #: ext- [phone] 09/04/2020 23:39 - Patient: DIANA WINKLER Sex: M : 2000 Age: 20y constipation. 2. The appendix is normal. While performing the above CT examination, radiation dose reduction was accomplished utilizing automated exposure control, adjusting of the mA and kV based on the patient's body size and/or the use of imperative reconstructive techniques. Electronically Signed By: Anil Bro MD , Radiologist Date/Time: 09/05/20 02:06 . Note - Tests: (CT abd / pelvis - Constipation. Normal appendix.).PROGRESS AND PROCEDURESCourse of Care: 00:37 Sep 05 2020. Patient is stable. 00:37 Sep 05 2020. In addition to constipation and rectal pain (without hemorrhoids), pt. is febrile to 102.2F and CBC has elevated monocytes. Will consider flu and COVID testing after CT abd / pelvis done. Lactate and lipase are normal. Chemistry unremarkable except elevated alk. phos. 01:46 Sep 05 2020. Pt. severely constipated on CT abd / pelvis. Will prescribe several laxatives / enemas and recommend stopping Oxycodone immediately. 02:30 Sep 05 2020. COVID and flu swabs are negative. Will discharge to home with multiple meds for constipation. Disposition: Discharged home in good and i mproved condition (02:Sep 05 2020). Condition: good.CLINICAL IMPRESSION Acute febrile illness Constipation (Recent multiple dental extractions).INSTRUCTIONS Do not work for seven days. Drink plenty of fluids. No alcohol. (Do not take Oxycodone since it causes severe constipation). Warnings: Further evaluation is necessary. GENERAL WARNINGS: Return or contact your physician immediately if your condition worsens or 7 Clinical Report - Physicians/Mid Levels [facility] Emergency Department [address] [place] [address] Phone #: ext- [phone] 09/04/2020 23:39 Patient: DIANA WINKLER Sex: M : 2000 Age: 20y changes unexpectedly, if not improving as expected, or if other problems arise. Prescription Medications: Metamucil (with sugar) 3.4 gram oral powder packet Take 1 scoop once a day for 7 days -- for severe constipation. Dispense 1 can. Refills: 0. Substitution permitted. Pharmacy - [facility] - [id number] ; [place] [address]. FaxNumber: . Miralax 17 gram oral powder packet Take 1 packet once a day as needed for 7 days -- for severe constipation. Dispense 7 packet. Refills: 0. Substitution permitted. Pharmacy - [address] ; [place] [address]. . Fleet Enema Extra 19 gram-7 gram/197 mL Insert 1 bottle once a day as needed for 7 days -- for severe constipation. Dispense 7 bottle. Refills: 0. Substitution permitted. Pharmacy - [address] ; [place] [address]. . ibuprofen 800 mg tablet Take 1 tablet every eight hours as needed for 10 days -- for pain or fever. Dispense 30 tablet. Refills: 0. Substitution permitted. [facility] - [address] ; [place] [address]. FaxNumber: [phone]. clindamycin HCl 300 mg capsule Take 1 capsule every six hours for 7 days -- to prevent dental infection at extraction sites. Dispense 28 capsule. Refills: 0. Substitution permitted. Pharmacy - [address] ; [place] [address]. FaxNumber: . Understanding of the discharge instructions verbalized by patient. Follow- [facility] with: [facility] , , , [address] [place] [address], , [place], [address] Follow up in two days if not better. Call for an appointment. Reason for referral: evaluation, treatment and Severe constipation / fecal impaction / Febrile illness.(Document created by Naldo Bosch)(Administratively locked by Reahna Arciniega M.D. 09/08/2020 07:57) Name Value Range Interpretation Code Description Data Maria Eugenia rce(s) Supporting Document(s) ID Date Data Source [id number] 09/05/2020 02:06:00 AM EST [facility] [address] [facility] [place] [place] [address] ---------NAME--------- NUMBER SEX AGE ADMIT DISC. XRAY# F/C TYPE PETERSON Ruggiero [id number] M 20 09/04/20 [id number] E/R DATE OF : 2000 M/R# [id number] #: [id number] TR-03 LOCATION: TRANSCRIBED: 09/05/20 2:[address] ABD //T// PELV W/ORAL ONLY [id number] COMPLETED:09/05/20 1:29 DLA 1875 Reason(s): Abdominal Pain Constipation PHYSICIAN: HIRO BR = R A D I O L O G Y R E P O R T PATIENT HISTORY:ACTUAL DOSE 563.5 mGy*cm rectal pain constipationPatient male. Verification of 2 patient identifiers performed.Time Out performed. correct body part and side all verified prior toexamination. Exam has been sent to [facility]iology - If further informationis needed, the number is . Report will be faxed to ED and/orXray. / Patient Information (DICOM Hx)EXAM: CT Abdomen and Pelvis Without IV contrastCLINICAL HISTORY:ACTUAL DOSE 563.5 mGy*cm rectal pain constipationTECHNIQUE: Axial computed tomography images of the abdomen and pelvis withoutintravenous contrast.CONTRAST: No IV contrast.COMPARISON:None provided.FINDINGS:LUNG BASES: The lung bases appear clear. No pleural effusions are seen.LIVER: Unremarkable.GALLBLADDER AND BILE DUCTS: The gallbladder appears within normal limits. Noradioopaque gallstones are seen. No biliary ductal dilatation is evident.PANCREAS: Unremarkable.SPLEEN: Unremarkable.ADRENAL GLANDS: Unremarkable.KIDNEYS, URETERS, AND BLADDER: The kidneys appear within normal limits. There isno hydronephrosis or hydroureter. No urinary calculi are seen.STOMACH AND BOWEL:Mildly prominent fecal material within the large bowel is suggestive of constipation.APPENDIX:The appendix is normal.PERITONEUM: No free fluid. No free air.LYMPH NODES: No lymphadenopathy is evident.REPRODUCTIVE: Unremarkable as visualized.VASCULATURE: No evidence of abdominal aortic aneurysm.BONES: No aggressive appearing osseous lesion. No acute osseous pathologyevident.IMPRESSION:1. Mildly prominent fecal material within the large bowel is suggestive ofconstipation.2. The appendix is normal.While performing the above CT examination, radiation dose reduction wasaccomplished utilizing automated exposure control, adjusting of the mA and kVbased on the patient's body size and/or the use of imperative reconstructivetechniques.Electronically Signed By:Anil Bro MD , RadiologistDate/Time: 09/05/20 02:06 Name Value Range Interpretation Code Description Data Maria Eugenia rce(s) Supporting Document(s) ID Date Data Source [id number] 09/05/2020 02:26:00 AM EST [facility] Name Value Range Interpretation Code Description Data Maria Eugenia rce(s) Supporting Document(s) Influenza virus A Ag [Presence] in Nasopharynx by Immunoassa y NEGATIVE NORMAL: NEGATIVE [facility] Influenza virus B Ag [Presence] in Nasopharynx by Immunoassa y NEGATIVE NORMAL: NEGATIVE [facility] NEGATIVENEGATIVE PROCEDURAL CO NTROL VALID KIT LOT # _[id number] 09/05/20.225.AB . KIT EXP DATE _54-46-97 09/05/20.225.AB .The Influenza A & B assay is a rapid molecular in vitro diagnostic testutilizing an isothermal nucleic acid amplification technology for thequalitative detection of influenza A and B viral RNA.Negative results do not preclude influenza virus infection and should not beused as the sole basis for diagnosis, treatment or other patient managementdecisions. ID Date Data Source [id number] 09/05/2020 02:27:00 AM [facility] Name Value Range Interpretation Code Description Data Maria Eugenia rce(s) Supporting Document(s) COVID-19 NOT DETECTED [facility] COVID-19 REENTER NOT DETECTED [facility] { PROCEDURAL CONTROL VALID KIT LOT # _[id number] 09/05/20.AB . KIT EXP DATE _14-44-27 09/05/20.AB . NORMAL RANGE IS NOT DETECTEDNEGATIVE RESULTS SHOULD BE TREATED PRESUMPTIVE AND, IF INCONSISTENT WITHCLINICAL SIGNS AND SYMPTOMS OR NECESSARY FOR PATIENT MANAGEMENT, SHOULD BETESTED WITH DIFFERENT AUTHORIZED OR CLEARED MOLECULAR TESTS. NEGATIVE RESULTSDO NOT PRECLUDE SARS-CoV-2 INFECTION AND SHOULD NOT BE USED THE SOLE BASISFOR PATIENT MANAGEMENT DECISIONS. ID Date Data Source [id number] 09/05/2020 02:12:00 AM [facility] Name Value Range Interpretation Code Description Data Maria Eugenia rce(s) Supporting Document(s) DRUG SCREEN URINE [facility] CORRECTE D REPORT URINE DRUG SCREEN Amphetamine [Presence] in Urine by Screen method NEGATIVE NORMAL: N EGATIVE [facility] BARBITURATES NEGATIVE NORMAL: NEGATIVE [facility] BENZO NEGATIVE NORMAL: NEGATIVE [facility] COCAINE NEGATIVE NORMAL: NEGATIVE [facility] Tetrahydrocannabinol [Presence] in Urine NEGATIVE NORMAL: NEGATIVE [facility] OPIATES NEGATIVE NORMAL: NEGATIVE [facility] Phencyclidine [Presence] in Urine by Screen method NEGATIVE NOR MAL: NEGATIVE [facility] \\BLDo\\URINE DRUG SCR EEN INTERPRETATION\\BLDx\\ THE CUTOFFF LEVELS FOR DETECTION ARE FOLLOWS: AMPHETAMINES 1000 ng/ml BARBITUARATES 200 ng/ml BENZODIAZEPINES 100 ng/ml THC 50 ng/ml PHENCYCLIDINE 25 ng/ml OPIATES 300 ng/ml COCAINE 300 ng/ml ALL POSITIVES ARE CONSIDERED PRESUMPTIVE POSITIVE CONFIRMATION WILL BE PERFORMED AT PHYSICIAN REQUEST. FOLLOWING RESULTS REPORTED IN ERROR am] AMPHETAMINES ba] BARBITURATES bz] BENZO co] COCAINE tc] THC op] OPIATES pc] PCP { CORRECT NEGATIVE ID Date Data Source [id number] 09/05/2020 01:35:00 AM [facility] Name Value Range Interpretation Code Description Data Maria Eugenia rce(s) Supporting Document(s) URINALYSIS [facility] yodit URINALYSIS SOURCE Clean Catch [facility] ital COLOR yellow NORMAL: Yellow [facility] ospital CLARITY clear NORMAL: Clear [facility] Specific gravity of Urine by Test strip 1.015 1.001 - 1.030 [facility] pH 5 5 - 9 [facility] Glucose [Mass/volume] in Urine by Test strip NORM NORMAL: Negat [facility] Bilirubin.total [Presence] in Urine by Test strip NEG NORMAL: Negative [facility] Ketones [Presence] in Urine by Test strip NEG NORMAL: Negative [facility] Protein [Mass/volume] in Urine by Test strip NEG NORMAL: Negat [facility] Nitrite [Presence] in Urine by Test strip NEG NORMAL: Negative [facility] BLOOD NEG NORMAL: Negative [facility] Leukocyte esterase [Presence] in Urine by Test strip NEG VIVEK L: Negative [facility] Urobilinogen [Mass/volume] in Urine by Test strip NOR less florentin n 1.0 mg/dL [facility] MICROSCOPIC Not Indicate [facility] ID Date Data Source [id number] 09/10/2020 03:30:00 PM EST [facility] [id number] Name Value Range Interpretation Code Description Data Maria Eugenia rce(s) Supporting Document(s) Bacteria identified in Blood by Culture [facility] NO GROWTH AFTER 5 DAYS ID Date Data Source [id number] 09/19/2020 05:49:00 PM EST [facility] Name Value Range Interpretation Code Description Data Maria Eugenia rce(s) Supporting Document(s) CULTURE BLOOD [facility] _CULTURE BLOOD_ TEST PERFORM ED AT [address] [address] CLIA# [id number] SEE SCANNED REPORT{ PRELIM ID Date Data Source [id number] 09/19/2020 09:03:00 AM EST [facility] Name Value Range Interpretation Code Description Data Maria Eugenia rce(s) Supporting Document(s) CULTURE BLOOD [facility] _CULTURE BLOOD_ TEST PERFORM ED AT [address] [address] CLIA# [id number] SEE SCANNED REPORT{ PRELIM ID Date Data Source [id number] 09/05/2020 12:45:00 AM EST [facility] Name Value Range Interpretation Code Description Data Maria Eugenia rce(s) Supporting Document(s) COMPREHENSIVE METABOLIC PANEL [facility] COMPREHENSIVE METABOLIC PANEL Sodium [Moles/volume] in Serum or Plasma 138 mEq/L 134 - 153 [facility] Potassium [Moles/volume] in Serum or Plasma 3.7 mEq/L 3.6 - 5.0 [facility] Chloride [Moles/volume] in Serum or Plasma 100 mEq/L 98 - 107 [facility] Carbon dioxide, total [Moles/volume] in Serum or Plasma 29 MEQ/L 22 - 30 [facility] Glucose [Mass/volume] in Serum or Plasma 115 MG/DL 65 - 110 H [facility] BUN 13 MG[facility]DL 7 - [facility] Creatinine [Mass/volume] in Serum or Plasma 1.0 MG/DL 0.7 - 1.5 [facility] BUN/CREAT 13 8 - 27 [facility] al Protein [Mass/volume] in Serum or Plasma 6.9 G/DL 6.3 - 8.2 [facility] Albumin [Mass/volume] in Serum or Plasma 4.6 G/DL 3.9 - 5.0 [facility] Globulin [Mass/volume] in Serum by calculation 2.3 GM/DL 2.4 - 3.2 L [facility] A/G RATIO 2.0 0.8 - 2.0 [facility] Calcium [Mass/volume] in Serum or Plasma 9.5 MG/DL 8.4 - 10.2 [facility] Bilirubin.total [Mass/volume] in Serum or Plasma 0.7 MG/DL 0.2 - 1.3 [facility] Alkaline phosphatase [Enzymatic activity/volume] in Serum or Plasma 133 U/L 38 - 126 H [facility] Aspartate aminotransferase [Enzymatic activity/volume] in Serum or Plasma 31 U/L 5 - 40 [facility] Alanine aminotransferase [Enzymatic activity/volume] in Seru m or Plasma 47 U/L 7 - 56 [facility] [facility] Anion gap 3 in Serum or Plasma 9.0 mmol/L 8.0 - 16.0 [facility] AGE 20 yrs [facility] al NON-AA GFR >60 mL/min [facility] ital AFR AMER GFR >60 mL/min [facility] Male GFR In terprentation 20-49 yrs >60 mL/min Normal 50-59 yrs >56 mL/min Normal 60-69 yrs >49 mL/min Normal 70-79yrs >42 mL/min Normal 80 and above >35 mL/min Normal Female GFR Interpretation 20-39 yrs >60 mL/min Normal 40-49 yrs >58 mL/min Normal 50-59 yrs >51 mL/min Normal 60-69 yrs >45 mL/min Normal 70-79 yrs >39 mL/min Normal 80 and above >32 mL/min Normal ID Date Data Source [id number] 09/05/2020 12:44:00 AM [facility] Name Value Range Interpretation Code Description Data Maria Eugenia rce(s) Supporting Document(s) Lipase [Enzymatic activity/volume] in Serum or Plasma 32 U/L 13 - 60 [facility] ID Date Data Source [id number] 09/05/2020 12:31:00 AM [facility] Name Value Range Interpretation Code Description Data Maria Eugenia rce(s) Supporting Document(s) Lactate [Moles/volume] in Serum or Plasma 1.9 MMOL/L 0.2 - 2.2 [facility] ID Date Data Source [id number] 09/05/2020 12:30:00 AM EST [facility] Name Value Range Interpretation Code Description Data Maria Eugenia rce(s) Supporting Document(s) CBC W/AUTOMATED DIFF [facility] COMPLETE BLOOD COUNT Leukocytes [#/volume] in Blood by Automated count 8.0 10^3/uL 4.2 - 1 1.0 [facility] Erythrocytes [#/volume] in Blood by Automated count 4.70 10^6/uL 4. 50 - 6.30 [facility] Hemoglobin [Mass/volume] in Blood 13.4 g/dL 14.0 - 16.0 L [facility] Hematocrit [Volume Fraction] of Blood by Automated count 38.7 % 4 1.0 - 51.0 L [facility] Erythrocyte mean corpuscular volume [Entitic volume] by Auto mated count 82.3 fL 80.0 - 94.0 [facility] Erythrocyte mean corpuscular hemoglobin [Entitic mass] by Automated count 28.5 pg 27.0 - 34.0 [facility] Erythrocyte mean corpuscular hemoglobin concentration [Mass/volume] by Automated count 34.6 g/dL 31.0 - 36.0 [facility] Erythrocyte distribution width [Ratio] by Automated count 11.9 % 11.5 - 14.8 [facility] Platelets [#/volume] in Blood by Automated count 205 10^3/uL 150 - 45 0 [facility] Platelet mean volume [Entitic volume] in Blood by Automated count 9.7 fL 7.4 - 10.4 [facility] Neutrophils/100 leukocytes in Blood by Automated count 75.2 % 37. 0 - 80.0 [facility] Lymphocytes/100 leukocytes in Blood by Manual count 12.4 % 25.0 - 40.0 L [facility] Monocytes/100 leukocytes in Blood by Automated count 11.0 % 3.0 - 8.0 H [facility] Eosinophils/100 leukocytes in Blood by Automated count 0.6 % 0.0 - 7.0 [facility] Basophils/100 leukocytes in Blood by Automated count 0.4 % 0.0 - 2.0 [facility] %IG 0.4 % 0.0 - 0.0 H [facility] %NRBC 0.0 % 0.0 - 0.0 [facility] al Neutrophils [#/volume] in Blood by Automated count 6.01 10^3/uL 2.00 - 6.90 [facility] Lymphocytes [#/volume] in Blood by Automated count 0.99 10^3/uL 0.60 - 3.40 [facility] Monocytes [#/volume] in Blood by Automated count 0.88 10^3/uL 0.00 - 0.90 [facility] Eosinophils [#/volume] in Blood by Automated count 0.05 10^3/uL 0.00 - 0.70 [facility] Basophils [#/volume] in Blood by Automated count 0.03 10^3/uL 0.00 - 0.20 [facility] #IG 0.03 10^3/uL 0.00 - 0.10 [facility] #NRBC 0.00 10^3/uL 0.00 - 0.00 [facility] MANUAL DIFF NOT INDICATED [facility] RBC MORPH NOT INDICATED [facility] spital Procedure Social History No Information Vital Signs ID Date Data Source UNK Name Value Range Interpretation Code Description Data Source(s) Body mass index (BMI) [Ratio] 24.5 kg/m2 24.5 k g/m2 [facility] ([facility]) Body weight 75.298 kg 75.298 kg [facility] ([facility]) Body temperature 97.5 [degF] 97.5 [degF] [facility] ([facility]) Body height 69 [in_i] 69 [in_i] [facility] ([facility]) 5'9" Body weight 166.00 [lb_av] 166.00 [lb_av] [facility] T ([facility]) Systolic blood pressure 130 mm[Hg] 130 mm[Hg] [facility] ([facility]) Diastolic blood pressure 79 mm[Hg] 79 mm[Hg] [facility]) Heart rate 89 /min 89 /min [facility]) Respiratory rate 12 /min 12 /min [facility] ( [facility] ) Body height 69 [in_i] 69 [in_i] [facility] ([facility], ) 5'9" Body weight 170.00 [lb_av] 170.00 [lb_av] [facility] ([facility], ) Body mass index (BMI) [Ratio] 25.1 kg/m2 25.1 k g/m2 [facility] ([facility] ) [place] body weight 160 [lb_av] 160 [lb_av] [facility] ([facility], ) Body height 69 [in_i] 69 [in_i] [facility] 5'9" Body mass index (BMI) [Ratio] 25.2 kg/m2 25.2 k g/m2 [facility] ([facility]) Body weight 77.566 kg 77.566 kg [facility]) Body temperature 97.2 [degF] 97.2 [degF] [facility] ([facility]) Body weight 171.00 [lb_av] 171.00 [lb_av] [facility] ([facility]) Systolic blood pressure 129 mm[Hg] 129 mm[Hg] [facility] ([facility]) Diastolic blood pressure 71 mm[Hg] 71 mm[Hg] [facility] ([facility]) Heart rate 77 /min 77 /min [facility]) Systolic blood pressure 110 mm[Hg] 110 mm[Hg] [facility] ([facility]) Diastolic blood pressure 68 mm[Hg] 68 mm[Hg] [facility] ([facility]) Heart rate 74 /min 74 /min [facility] ([facility]) Body temperature 98.6 [degF] 98.6 [degF] [facility] ([facility]) Respiratory rate 16 /min 16 /min [facility] ( [facility]) Oxygen saturation in Arterial blood by Pulse oximetry 98 % 98 % [facility] ([facility]) Body weight 174.00 [lb_av] 174.00 [lb_av] [facility] ([facility]) Body weight 78.926 kg 78.926 kg [facility] ([facility]) Body height 69 [in_i] 69 [in_i] [facility] ([facility]) 5'9" Body mass index (BMI) [Ratio] 25.7 kg/m2 25.7 k g/m2 [facility] ([facility]) Body surface area Derived from formula 1.95 m2 1.95 m2 [facility] ([facility]) Systolic blood pressure 132 mm[Hg] 132 mm[Hg] [facility] ([facility]) Diastolic blood pressure 66 mm[Hg] 66 mm[Hg] [facility] ([facility]) Heart rate 81 /min 81 /min [facility] ([facility]) Body temperature 98.6 [degF] 98.6 [degF] [facility] ([facility]) Respiratory rate 18 /min 18 /min [facility] ( [facility]) Oxygen saturation in Arterial blood by Pulse oximetry 99 % 99 % [facility] ([facility]) Body weight 174.00 [lb_av] 174.00 [lb_av] [facility] ([facility]) Body weight 78.926 kg 78.926 kg [facility] ([facility]) Body height 69 [in_i] 69 [in_i] [facility] ([facility]) 5'9" Body mass index (BMI) [Ratio] 25.7 kg/m2 25.7 k g/m2 [facility] ([facility]) Body surface area Derived from formula 1.95 m2 1.95 m2 [facility] ([facility]) ID Date Data Source [id number] 12/03/2020 07:23:51 AM EDT [facility] Name Value Range Interpretation Code Description Data Source(s) WEIGHT RECORDED 170.00 pounds 170.00 pounds [facility] Height 69 Inches 069 Inches [facility]
[2021-07-06] MEDS ORDERED: propofoL 200 MG/20 ML VIAL As Ordered ONE (10:05)
[2021-07-06] MEDS ORDERED: LIDOCAINE 2% 100MG/5ML SDV (FOR ANES.) As Ordered ONE (10:05)
[2021-07-06] MEDS ORDERED: fentaNYL 100 MCG/2 ML INJECTION (J3010) As Ordered ONE (10:16)
--- NOTE | 2021-07-06 10:33 | ROOR ---
Patient Name: Jean Claude Leigh Procedure Date: 07/06/2021 10:19 AM Date of : 2000 Age: 21 Room: [facility] Gender: Male Note Status: Finalized Procedure: Upper Endoscopy + Biopsies Indications: Heartburn, Failure to respond to medical treatment, Exclusion of Bojorquez's esophagus Providers: Brant Snow MD Referring MD: ARELY MCGEE MD Requesting Provider: Medicines: Monitored Anesthesia Care Complications: No immediate complications. Procedure: Pre-Anesthesia Assessment: - The heart rate, respiratory rate, oxygen saturations, blood pressure, adequacy of pulmonary ventilation, and response to care were monitored throughout the procedure. The Endoscope was introduced through the mouth, and advanced to the second part of duodenum. The upper GI endoscopy was accomplished without difficulty. The patient tolerated the procedure well. Findings: The Z-line was regular and was found 40 cm from the incisors. Multiple biopsies were obtained with cold forceps for evaluation to rule out Bojorquez's Esophagus randomly at the gastroesophageal junction. Mucosal changes were found in the upper third of the esophagus. Biopsies were taken with a cold forceps for histology. No other significant abnormalities were identified in a careful examination of the stomach. Biopsies were taken with a cold forceps in the gastric antrum for Helicobacter pylori testing. The exam of the duodenum was otherwise normal. Impression: - Z-line regular, 40 cm from the incisors. - Esophageal mucosal changes suggestive of eosinophilic esophagitis. Biopsied. - Multiple biopsies were obtained at the gastroesophageal junction. - Biopsies were taken with a cold forceps for Helicobacter pylori testing. - The examination was otherwise normal. Recommendation: - Patient has a contact number available for emergencies. The signs and symptoms of potential delayed complications were discussed with the patient. Return to normal activities tomorrow. Written discharge instructions were provided to the patient. - High fiber diet. - Discharge patient to home. - Follow an antireflux regimen. - Continue present medications. - Await pathology results. - Return to referring physician. - Telephone GI clinic for pathology results in 1 week. - The findings and recommendations were discussed with the patient. Procedure Code(s): --- Professional --- 17727, Esophagogastroduodenoscopy, flexible, transoral; with biopsy, single or multiple Diagnosis Code(s): --- Professional --- K22.8, Other specified diseases of esophagus R12, Heartburn CPT copyright 2019 [employer]. All rights reserved. The codes documented in this report are preliminary and upon csw review may be revised to meet current compliance requirements. Brant Snow MD Brant Snow MD 07/06/2021 10:33:12 AM Electronically signed by Brant Snow MD Number of Addenda: 0 Note Initiated On: 07/06/2021 10:19 AM Estimated Blood Loss: Estimated blood loss: none.
[2021-07-06 11:00] VITALS: BP 119/62
== END 2021-07-06 12:58 | disposition home or self-care (01) ==
LOC: M OPP 07:54
PROVIDERS: ATTEND Internal Medicine Gastroenterology
DX: R12 Heartburn (principal); K22.89 Other specified disease of esophagus; B96.81 Helicobacter pylori [H. pylori] as the cause of diseases classified elsewhere
CPT/HCPCS: 43239; 88305; 88342; J3010

== ENCOUNTER → 2022-10-18 | Outpatient (CLI) | payer OTHER ==
[~2022-10-18] MED LIST changes: +ISOVUE-300 61% 50ML VIAL ONE; +LIDOCAINE 1% MDV 20ML VIAL ONE; -NS 1,000 ML IV ONE; +TRIAMCINOLONE ACETONIDE SUSP 40MG/ML 1ML VIAL ONE
== END ==
LOC: M PLAIMG 12:38
PROVIDERS: ATTEND Physician Assistant Surgical
DX: S73.121A Ischiocapsular ligament sprain of right hip, initial encounter (principal); X58.XXXA Exposure to other specified factors, initial encounter; Y92.9 Unspecified place or not applicable
CPT/HCPCS: 20610; 76000; J3301